=== PATIENT | female | born 1930 | race Caucasian/White ===

== ENCOUNTER 2016-12-30 21:48 | Inpatient (IN) | payer MEDICARE ==
[~2016-12-30] VITALS: Ht 162.6 cm; Wt 64.6 kg
--- NOTE | 2016-12-30 22:15 | EKG ---
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
[2016-12-30 22:26] LABS: BASO # 0.1 x10^3/uL (0.0-0.2); BASO % 1 % (0-3); EOS # 0.2 x10^3/uL (0.0-0.7); EOS % 3 % (0-3); HEMOGLOBIN 12.8 g/dL (12.0-15.5); LYMPH # 2.4 x10^3/uL (1.0-4.8); LYMPH % 40 % (24-48); MEAN CORPUSCULAR HEMOGLOBIN 28 pg (25-35); MEAN CORPUSCULAR HGB CONC 33 g/dL (31-37); MEAN CORPUSCULAR VOLUME 86 fL (79-100); MONO # 0.6 x10^3/uL (0.0-1.1); MONO % 9 % (0-9); NEUT # 2.9 x10^3uL (1.8-7.7); NEUT % 48 % (31-73); PLATELET COUNT 209 x10^3/uL (140-400); RED BLOOD COUNT 4.52 x10^6/uL (3.50-5.40); RED CELL DISTRIBUTION WIDTH 15.6 % (11.5-14.5); WHITE BLOOD COUNT 6.1 x10^3/uL (4.0-11.0)
[2016-12-30 22:31] LABS: HEMOGLOBIN ISTAT 13.3 gm/dL; POTASSIUM ISTAT 3.7 mmol/L (3.5-5.0)
--- NOTE | 2016-12-30 22:35 | ED.ADGEN ---
Adult General HPI HPI Patient is a 86-year-old female with a history of dementia brought to the emergency department for medical clearance prior to admission to the geriatric psychiatric unit. Patient herself denies any medical complaints. Per report she has had increased aggression at the shelter. Review of Systems Review of Systems Constitutional: Denies fever or chills [] Eyes: Denies change in visual acuity, redness, or eye pain [] HENT: Denies nasal congestion or sore throat [] Respiratory: Denies cough or shortness of breath [] Cardiovascular: No additional information not addressed in HPI [] GI: Denies abdominal pain, nausea, vomiting, bloody stools or diarrhea [] : Denies dysuria or hematuria [] Musculoskeletal: Denies back pain or joint pain [] Integument: Denies rash or skin lesions [] Neurologic: Denies headache, focal weakness or sensory changes [] Endocrine: Denies polyuria or polydipsia [] Allergies Allergies Allergies Coded Allergies Type Severity Reaction Last Updated Verified No Known Drug Allergies 12/30/16 No Physical Exam Physical Exam Constitutional: Well developed, well nourished, no acute distress, non-toxic appearance. [] HENT: Normocephalic, atraumatic, bilateral external ears normal, oropharynx moist, no oral exudates, nose normal. [] Eyes: PERRLA, EOMI, conjunctiva normal, no discharge. [] Neck: Normal range of motion, no tenderness, supple, no stridor. [] Cardiovascular:Heart rate regular rhythm, no murmur [] Lungs & Thorax: Bilateral breath sounds clear to auscultation [] Abdomen: Bowel sounds normal, soft, no tenderness, no masses, no pulsatile masses. [] Skin: Warm, dry, no erythema, no rash. [] Back: No tenderness, no CVA tenderness. [] Extremities: No tenderness, no cyanosis, no clubbing, ROM intact, no edema. [] Neurologic: Alert and oriented X 1, normal motor function, normal sensory function, no focal deficits noted. [] Psychologic: Affect normal, judgement normal, mood normal. [] Current Patient Data Vital Signs Vital Signs Date Time Temp Pulse Resp B/P Pulse Ox O2 Delivery O2 Flow Rate FiO2 12/30/16 21:48 97.2 74 20 93 Room Air Lab Results Laboratory Tests Test 12/30/16 22:05 12/30/16 22:10 12/30/16 22:15 12/30/16 22:18 White Blood Count 6.1x10^3/uL (4.0-11.0) Red Blood Count 4.52x10^6/uL (3.50-5.40) Hemoglobin 12.8g/dL (12.0-15.5) Hematocrit 39.0% (36.0-47.0) Mean Corpuscular Volume 86fL (79-100) Mean Corpuscular Hemoglobin 28pg (25-35) Mean Corpuscular Hemoglobin Concent 33g/dL (31-37) Red Cell Distribution Width 15.6% (11.5-14.5) H Platelet Count 209x10^3/uL (140-400) Neutrophils (%) (Auto) 48% (31-73) Lymphocytes (%) (Auto) 40% (24-48) Monocytes (%) (Auto) 9% (0-9) Eosinophils (%) (Auto) 3% (0-3) Basophils (%) (Auto) 1% (0-3) Neutrophils # (Auto) 2.9x10^3uL (1.8-7.7) Lymphocytes # (Auto) 2.4x10^3/uL (1.0-4.8) Monocytes # (Auto) 0.6x10^3/uL (0.0-1.1) Eosinophils # (Auto) 0.2x10^3/uL (0.0-0.7) Basophils # (Auto) 0.1x10^3/uL (0.0-0.2) Magnesium Level 1.9mg/dL (1.8-2.4) Valproic Acid Level 45mcg/mL (50-100) L Valproic Acid Last Dose Date Unknown Valproic Acid Last Dose Time Unknown Urine Collection Type Unknown Urine Color Yellow Urine Clarity Cloudy Urine pH 7.0 Urine Specific [place] 1.020 Urine Protein Neg (NEG-TRACE) Urine Glucose (UA) Negmg/dL (NEG) Urine Ketones (Stick) Negmg/dL (NEG) Urine Blood Small (NEG) Urine Nitrite Neg (NEG) Urine Bilirubin Neg (NEG) Urine Urobilinogen Dipstick 0.2mg/dL (0.2 mg/dL) Urine Leukocyte Esterase Large (NEG) Urine RBC Occ/HPF (0-2) Urine WBC 1-4/HPF (0-4) Urine Squamous Epithelial Cells Occ/LPF Urine Bacteria Few/HPF (0-FEW) POC Hemoglobin 13.3gm/dL POC Hematocrit 39% POC Sodium 140mmol/L (135-145) POC Potassium 3.7mmol/L (3.5-5.0) POC Chloride 100mmol/L (98-110) POC Total CO2 27mmol/L (23-32) Anion Gap 18mmol/L (6-14) H POC Blood Urea Nitrogen 11mg/dL (8-26) POC Creatinine 0.5mg/dL (0.5-1.4) Glucose Level 96mg/dL (60-99) POC Ionized Calcium (Sahil) 1.15mmol/L (1.13-1.32) POC Troponin I 0.00ng/ml (<0.08) EKG EKG EKG interpreted by me, normal sinus rhythm, 70 bpm, no ST segment elevation, leftward axis. [] Radiology/Procedures Radiology/Procedures [] Course & Med Decision Making Course & Med Decision Making Pertinent Labs and Imaging studies reviewed. (See chart for details) [] Final Impression Final Impression Dementia with behavioral disturbance [] Problems: Dragon Disclaimer Dragon Disclaimer This electronic medical record was generated, in whole or in part, using a voice recognition dictation system. CHANTAL BRAN MD Dec 30, 2016 22:34
[2016-12-30 22:42] LABS: VAL ACID 45 mcg/mL (50-100)
[2016-12-30 23:19] LABS: CLARITY,URINE CLOUDY
[2016-12-30 23:20] LABS: COLOR,URINE YELLOW
[2016-12-30 23:23] LABS: BILIRUBIN,URINE NEG (NEG); GLUCOSE,URINE NEG (NEG); NITRITE,URINE NEG (NEG); RBC,URINE OCC /HPF (0-2); UROBILINOGEN,URINE 0.2 mg/dL (0.2 mg/dL)
[2016-12-30 23:24] LABS: BACTERIA,URINE FEW /HPF (0-FEW); SQUAMOUS EPITHELIAL CELL,UR OCC /LPF
[2016-12-30] MEDS ORDERED: ALPR0.5T6 PO (23:48)
[2016-12-30] MEDS ORDERED: QUET25TA5 PO (23:48)
[2016-12-30] MEDS ORDERED: ACET325T9 PO (23:48)
[2016-12-30] MEDS ORDERED: PARO20TA3 PO (23:48)
[2016-12-30] MEDS ORDERED: TEMA15CA PO (23:48)
[2016-12-30] MEDS ORDERED: LORA0.5T PO (23:48)
[2016-12-30] MEDS ORDERED: BISA5TAB4 PO (23:48)
[2016-12-30] MEDS ORDERED: LISI40TA PO (23:48)
[2016-12-30] MEDS ORDERED: DIVA125C PO (23:48)
[2016-12-30] MEDS ORDERED: DONE10TA34 PO (23:48)
[2016-12-30] MEDS ORDERED: DIPH25CA58 PO (23:48)
[2016-12-30] MEDS ORDERED: DIPH25TA24 PO (23:48)
[2016-12-30] MEDS ORDERED: SENN-6 PO (23:50)
--- NOTE | 2016-12-30 23:51 | ACF ---
Admission Criteria Forms PSYCHIATRIC DISORDERS Clinical Indications for Inpatient Care (Place 'X' for any and all applicable criteria): Ongoing inpatient care may be needed for ANY ONE of the following(1)(2)(3)(4)(6) (7)(8): [X]I. Danger to self or others not manageable at lower level of care. [ ]II. Grave disability (eg, inability to perform self care necessary at lower level of care) [ ]III. Agitation or inappropriate behavior interfering with care for primary condition (eg, attempting to discontinue lines or drains prematurely, unable to cooperate with respiratory care) [ ]IV. Severe disability or disorder indicated by ALL of the following: [ ]a) Severe behavioral health disorder-related symptoms or condition indicated by ANY ONE of the following: [ ]i) Severe problem with cognition, memory, judgment, or impulse control [ ]ii) Severe clinical manifestations (eg, hallucinations, delusions, other acute psychotic symptoms, yola, extreme agitation or anxiety) [ ]b) Patient management at lower level of care is not feasible until acute intervention or modification is initiated. Extended stay beyond goal length of stay for the primary condition may be indicated when ANY ONE of the following is present: (1)(2)(3)(4): [ ]a) Patient is a danger to self or others and not manageable at lower level of care. [ ]b) Behavior crisis management, including physical or chemical restraints, is required and is not available at a lower level of care. [ ]c) Behavioral symptoms (e.g., agitation, somnolence, inappropriate behavior) are present, and are not manageable at a lower level of care. [ ]d) Patient cannot understand follow-up treatment and crisis plan. [ ]e) Provider and supports are not sufficiently available at lower level of care. [ ]f) Patient cannot participate (e.g., verify absence of plan for harm) and is in needed of monitoring. The original [facility] content created by [employer] has been revised. The portions of the content which have been revised are identified through the use of italic text or in bold, and [facility] has neither reviewed nor approved the modified material. All other unmodified content is copyright [facility]. Please see references footnoted in the original [facility] edition 2016 Admission Criteria Met?: Yes PIERRE GE Dec 30, 2016 23:51
[2016-12-30] MEDS ORDERED: SMZ/TMP 800/160MG TABLET. PO ONE (23:55)
[2016-12-31] MEDS ORDERED: LORAZEPAM 0.5 MG TABLET PO PRN
[2016-12-31] MEDS ORDERED: MAGNESIUM HYDROXIDE 2,400 MG/30 ML ORAL.SUSP. PO PRN
[2016-12-31] MEDS ORDERED: METHYL SALICYLATE/MENTHOL TOPICAL OINTMENT 29GM TUBE. TP PRN
[2016-12-31] MEDS ORDERED: MAG HYDROX/AL HYDROX/SIMETH 30 ML ORAL.SUSP PO PRN
[2016-12-31 01:19] VITALS: BP 150/74
[2016-12-31] MEDS: OLANZAPINE ZYDIS 5 MG TAB.RAPDIS PO PRN ×2 (06:26→07:28)
[2016-12-31 06:30] VITALS: BP 178/85
[2016-12-31] MEDS: HYDROXYZINE HCL 25 MG TABLET PO PRN (07:28)
[2016-12-31] MEDS: LORAZEPAM 2 MG/ML VIAL IM SCH ×2 (08:18→09:00)
[2016-12-31] MEDS: HALOPERIDOL LACT 5 MG/ML VIAL. IM SCH ×2 (08:18→09:00)
[2016-12-31] MEDS ORDERED: DIPHENHYDRAMINE HCL 25 MG CAPSULE PO PRN (09:15)
[2016-12-31] MEDS ORDERED: ACETAMINOPHEN 325 MG TABLET PO PRN (09:15)
[2016-12-31] MEDS ORDERED: BISACODYL TAB 5 MG TABLET.DR. PO PRN (09:15)
--- NOTE | 2016-12-31 11:23 | PDOC1 ---
History of Present Illness Reason for Visit: Combative History of Present Illness Pt sent to [facility] for eval in SB[facility] unit due to combative behavior at the [facility]. Pt has been exit-seeking, paranoid, threatening, striking staff. She is a very poor historian. She does c/o some occasional pain in the right low back area, but able to walk fine. Per nursing staff she has been spitting on them this morning. 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 Allergies: Coded Allergies: No Known Drug Allergies (Unverified , 12/30/16) Medications Current Medications Trimethoprim/ Sulfamethoxazole (Bactrim Ds) 1 tab 1X ONCE PO Last administered on 12/31/16 00:02; Start 12/30/16 at 23:55; Stop 12/30/16 at 23:56 ; Status DC Multi-Ingredient Ointment (Analgesic [place]) 1 jazlyn PRN QID PRN TP MUSCLE PAIN; Start 12/31/16 at 00:00 Al Hydroxide/Mg Hydroxide (Mylanta Plus Xs) 15 ml PRN AFTMEALHC PRN PO DYSPEPSIA; Start 12/31/16 at 00:00 Magnesium Hydroxide (Milk Of Magnesia) 2,400 mg PRN QHS PRN PO CONSTIPATION; Start 12/31/16 at 00:00 Alprazolam (Xanax) 0.5 mg TID PO ; Start 12/31/16 at 09:00 Divalproex Sodium (Depakote Sprinkles) 250 mg BID PO ; Start 12/31/16 at 09:00 Donepezil HCl (Aricept) 10 mg QHS PO ; Start 12/31/16 at 21:00 Lorazepam (Ativan) 0.5 mg PRN Q4HRS PRN PO ANXIETY / AGITATION Last administered on 12/31/16 05:50; Start 12/31/16 at 00:00; Stop 12/31/16 at 06:19 ; Status DC Paroxetine HCl (Paxil) 20 mg DAILY PO ; Start 12/31/16 at 09:00 Quetiapine Fumarate (SEROquel) 25 mg TID PO ; Start 12/31/16 at 09:00 Temazepam (Restoril) 15 mg PRN QHS PRN PO INSOMNIA; Start 12/31/16 at 00:00 Olanzapine (Zyprexa Zydis) 2.5 mg PRN Q2HR PRN PO PSYCHOSIS Last administered on 12/31/16 06:26; Start 12/31/16 at 06:30 Hydroxyzine HCl (Atarax) 50 mg PRN TID PRN PO ANXIETY; Start 12/31/16 at 07:30 Lorazepam (Ativan) 0.5 mg DAILY IM Last administered on 12/31/16 08:18; Start 12/31/16 at 08:30 Haloperidol Lactate (Haldol) 5 mg DAILY IM Last administered on 12/31/16 08:18 ; Start 12/31/16 at 08:30 Acetaminophen (Tylenol) 650 mg PRN Q4HRS PRN PO PAIN / TEMP; Start 12/31/16 at 09:15 Bisacodyl (Dulcolax Tab) 10 mg PRN QHS PRN PO CONSTIPATION; Start 12/31/16 at 09:15 Diphenhydramine HCl (Benadryl) 25 mg PRN Q8HRS PRN PO RASH; Start 12/31/16 at 09:15 Senna/Docusate Sodium (Senna Plus) 1 tab PRN QHS PRN PO CONSTIPATION; Start at 09:15 Lisinopril (Prinivil) 40 mg DAILY PO ; Start 12/31/16 at 09:30 Active Scripts Active Reported Senna S Tablet (Sennosides/Docusate Sodium) 1 Each Tablet 1 Tab PO PRN QHS PRN Tylenol (Acetaminophen) 325 Mg Tablet 650 Mg PO PRN Q4HRS PRN Lorazepam 0.5 Mg Tablet 0.5 Mg PO PRN Q4HRS PRN Bisacodyl 5 Mg Tablet.dr 10 Mg PO PRN QHS PRN Diphenhydramine Hcl 25 Mg Tablet 25 Mg PO PRN QHS PRN Temazepam 15 Mg Capsule 15 Mg PO PRN QHS PRN Depakote Sprinkle (Divalproex Sodium) 125 Mg Cap.sprink 250 Mg PO BID Benadryl (Diphenhydramine Hcl) 25 Mg Capsule 25 Mg PO PRN Q8HRS PRN Seroquel (Quetiapine Fumarate) 25 Mg Tablet 25 Mg PO TID Alprazolam 0.5 Mg Tablet 0.5 Mg PO TID Aricept (Donepezil Hcl) 10 Mg Tablet 10 Mg PO QHS Paroxetine Hcl 20 Mg Tablet 20 Mg PO DAILY Lisinopril 40 Mg Tablet 40 Mg PO DAILY Exam Vital Signs Vital Signs Date Time Temp Pulse Resp B/P Pulse Ox O2 Delivery O2 Flow Rate FiO2 12/31/16 06:30 97.5 67 18 178/85 94 12/31/16 01:19 Room Air General Appearance: Alert, Other (Agitated, pacing the [place], accuses nurse of "sabotaging me") HEENT: Atraumatic, PERRLA, EOMI, Mucous membr. moist/pink, Other (NecK with normal ROM, no JVD, no LAD) Respiratory: Clear to auscultation, Normal air movement Heart: Regular rate, Normal S1, Normal S2, No murmurs Abdominal: Soft, No tenderness, No hepatospenomegaly Extremities: No edema, Normal pulses, Other (Right hip is NTTP. Her gait is normal. There is some TTP in the right SI joint, though pt describes it as " not a problem") Skin: No rashes Neuro: Normal gait, Strength at 5/5 X4 ext, Normal tone, Cranial nerves 3-12 NL Psych/Mental Status: Other (Pt paranoid and quite agitated today ) Assessment/Plan Assessment/Plan 1. Dementia w/ BD: Per Dr. Westbrook. 2. Possible UTI: UA was unremarkable. No indication for treatment, pt had neg culture on 12/23 as well. 3. HTN: MOnitor and treat if necessary. Will be cautious given pt's age and comorbid conditions. 4. DVT proph: Pt is ambulating all the time, no indication for pharmacologic prophylaxis. 5. Right SI joint pain: Pt is not c/o at this time. If worsens or pt limping , consider xray and additional meds. COURSE Allergies Coded Allergies Type Severity Reaction Last Updated Verified No Known Drug Allergies 12/30/16 No Laboratory Tests Test 12/30/16 22:05 12/30/16 22:10 12/30/16 22:15 12/30/16 22:18 White Blood Count 6.1x10^3/uL (4.0-11.0) Red Blood Count 4.52x10^6/uL (3.50-5.40) Hemoglobin 12.8g/dL (12.0-15.5) Hematocrit 39.0% (36.0-47.0) Mean Corpuscular Volume 86fL (79-100) Mean Corpuscular Hemoglobin 28pg (25-35) Mean Corpuscular Hemoglobin Concent 33g/dL (31-37) Red Cell Distribution Width 15.6% (11.5-14.5) Platelet Count 209x10^3/uL (140-400) Neutrophils (%) (Auto) 48% (31-73) Lymphocytes (%) (Auto) 40% (24-48) Monocytes (%) (Auto) 9% (0-9) Eosinophils (%) (Auto) 3% (0-3) Basophils (%) (Auto) 1% (0-3) Neutrophils # (Auto) 2.9x10^3uL (1.8-7.7) Lymphocytes # (Auto) 2.4x10^3/uL (1.0-4.8) Monocytes # (Auto) 0.6x10^3/uL (0.0-1.1) Eosinophils # (Auto) 0.2x10^3/uL (0.0-0.7) Basophils # (Auto) 0.1x10^3/uL (0.0-0.2) Magnesium Level 1.9mg/dL (1.8-2.4) Valproic Acid (Depakene) Level 45mcg/mL (50-100) Valproic Acid Last Dose Date Unknown Valproic Acid Last Dose Time Unknown Urine Collection Type Unknown Urine Color Yellow Urine Clarity Cloudy Urine pH 7.0 Urine Specific [place] 1.020 Urine Protein Neg (NEG-TRACE) Urine Glucose (UA) Negmg/dL (NEG) Urine Ketones (Stick) Negmg/dL (NEG) Urine Blood Small (NEG) Urine Nitrite Neg (NEG) Urine Bilirubin Neg (NEG) Urine Urobilinogen Dipstick 0.2mg/dL (0.2 mg/dL) Urine Leukocyte Esterase Large (NEG) Urine RBC Occ/HPF (0-2) Urine WBC 1-4/HPF (0-4) Urine Squamous Epithelial Cells Occ/LPF Urine Bacteria Few/HPF (0-FEW) Bedside Hemoglobin 13.3gm/dL Bedside Hematocrit 39% Bedside Sodium 140mmol/L (135-145) Bedside Potassium 3.7mmol/L (3.5-5.0) Bedside Chloride 100mmol/L (98-110) Bedside Total CO2 27mmol/L (23-32) Anion Gap 18mmol/L (6-14) Bedside Blood Urea Nitrogen 11mg/dL (8-26) Bedside Creatinine 0.5mg/dL (0.5-1.4) Glucose Level 96mg/dL (60-99) Bedside Ionized Calcium (Sahil) 1.15mmol/L (1.13-1.32) Bedside Troponin I 0.00ng/ml (<0.08) Current Medications Medications (Trade) Dose Ordered Sig/Yunier Route PRN Reason Start Time Stop Time Status Last Admin Dose Admin Trimethoprim/ Sulfamethoxazole (Bactrim Ds) 1 tab 1X ONCE PO 12/30/16 23:55 12/30/16 23:56 DC 12/31/16 00:02 Multi-Ingredient Ointment (Analgesic [place]) 1 jazlyn PRN QID PRN TP MUSCLE PAIN 12/31/16 00:00 Al Hydroxide/Mg Hydroxide (Mylanta Plus Xs) 15 ml PRN AFTMEALHC PRN PO DYSPEPSIA 12/31/16 00:00 Magnesium Hydroxide (Milk Of Magnesia) 2,400 mg PRN QHS PRN PO CONSTIPATION 12/31/16 00:00 Alprazolam (Xanax) 0.5 mg TID PO 12/31/16 09:00 Divalproex Sodium (Depakote Sprinkles) 250 mg BID PO 12/31/16 09:00 Donepezil HCl (Aricept) 10 mg QHS PO 12/31/16 21:00 Lorazepam (Ativan) 0.5 mg PRN Q4HRS PRN PO ANXIETY / AGITATION 12/31/16 00:00 12/31/16 06:19 DC 12/31/16 05:50 Paroxetine HCl (Paxil) 20 mg DAILY PO 12/31/16 09:00 Quetiapine Fumarate (SEROquel) 25 mg TID PO 12/31/16 09:00 Temazepam (Restoril) 15 mg PRN QHS PRN PO INSOMNIA 12/31/16 00:00 Olanzapine (Zyprexa Zydis) 2.5 mg PRN Q2HR PRN PO PSYCHOSIS 12/31/16 06:30 12/31/16 06:26 Hydroxyzine HCl (Atarax) 50 mg PRN TID PRN PO ANXIETY 12/31/16 07:30 Lorazepam (Ativan) 0.5 mg DAILY IM 12/31/16 08:30 12/31/16 08:18 Haloperidol Lactate (Haldol) 5 mg DAILY IM 12/31/16 08:30 12/31/16 08:18 Acetaminophen (Tylenol) 650 mg PRN Q4HRS PRN PO PAIN / TEMP 12/31/16 09:15 Bisacodyl (Dulcolax Tab) 10 mg PRN QHS PRN PO CONSTIPATION 12/31/16 09:15 Diphenhydramine HCl (Benadryl) 25 mg PRN Q8HRS PRN PO RASH 12/31/16 09:15 Senna/Docusate Sodium (Senna Plus) 1 tab PRN QHS PRN PO CONSTIPATION 12/31/16 09:15 Lisinopril (Prinivil) 40 mg DAILY PO 12/31/16 09:30 Vital Signs Date Time Temp Pulse Resp B/P Pulse Ox O2 Delivery O2 Flow Rate FiO2 12/31/16 06:30 97.5 67 18 178/85 94 12/31/16 01:19 Room Air EKG: NSR, mildly prolonged [place] Labs from [facility] normal on 12/24 (Hgb 11.9) Urine culture from [facility] normal on 12/23 SEBASTIAN PAGE MD Dec 31, 2016 11:23
[2016-12-31] MEDS: DIVALPROEX 125 MG CAP.SPRINK PO SCH ×2 (11:44→19:55)
[2016-12-31] MEDS: ALPRAZOLAM 0.5 MG TABLET PO SCH ×4 (11:44→19:55)
[2016-12-31] MEDS: QUEtiapine 25 MG TABLET. PO SCH ×4 (11:45→19:55)
[2016-12-31] MEDS: LISINOPRIL 20 MG TABLET PO SCH (11:45)
[2016-12-31] MEDS: PAROXETINE 20 MG TABLET. PO SCH (11:45)
[2016-12-31 13:56] LABS: THYROID STIM HORMONE (TSH) 3.19 uIU/mL (0.358-3.740)
[2016-12-31 16:04] VITALS: BP 98/52
[2016-12-31 18:10] LABS: T3 TOTAL 99 ng/dL (71-180); THYROXINE 8.2 ug/dL (4.5-12.0)
[2016-12-31] MEDS: DONEPEZIL HCL 10 MG TABLET PO SCH (19:55)
--- NOTE | 2016-12-31 20:57 | PDOC ---
Exam Ab Demential Exam: Ab Note: Please also refer to the separate dictated note~for this date of service dictated separately.~Patient seen individually. Discussed the patient with Nursing staff reviewed the chart.~Reviewed interim history and current functioning. Reviewed vital signs,~Labs/ Radiology~and current medications noted below. Continue current treatment with the changes noted in the dictated addendum note Assessment: Vital Signs: Vital Signs Date Time Temp Pulse Resp B/P Pulse Ox O2 Delivery O2 Flow Rate FiO2 12/31/16 16:04 97.6 69 20 98/52 91 12/31/16 01:19 Room Air I&O Intake and Output 12/31/16 07:00 # Voids 2 # Bowel Movements 1 Labs: Laboratory Tests Test 12/30/16 22:05 12/30/16 22:10 12/30/16 22:15 12/30/16 22:18 White Blood Count 6.1x10^3/uL (4.0-11.0) Red Blood Count 4.52x10^6/uL (3.50-5.40) Hemoglobin 12.8g/dL (12.0-15.5) Hematocrit 39.0% (36.0-47.0) Mean Corpuscular Volume 86fL (79-100) Mean Corpuscular Hemoglobin 28pg (25-35) Mean Corpuscular Hemoglobin Concent 33g/dL (31-37) Red Cell Distribution Width 15.6% (11.5-14.5) H Platelet Count 209x10^3/uL (140-400) Neutrophils (%) (Auto) 48% (31-73) Lymphocytes (%) (Auto) 40% (24-48) Monocytes (%) (Auto) 9% (0-9) Eosinophils (%) (Auto) 3% (0-3) Basophils (%) (Auto) 1% (0-3) Neutrophils # (Auto) 2.9x10^3uL (1.8-7.7) Lymphocytes # (Auto) 2.4x10^3/uL (1.0-4.8) Monocytes # (Auto) 0.6x10^3/uL (0.0-1.1) Eosinophils # (Auto) 0.2x10^3/uL (0.0-0.7) Basophils # (Auto) 0.1x10^3/uL (0.0-0.2) Magnesium Level 1.9mg/dL (1.8-2.4) Iron Level 38ug/dL (50-170) L Total Iron Binding Capacity 329ug/dL (250-450) Iron Saturation 12% (15-34) L Triglycerides Level 130mg/dL (0-150) Cholesterol Level 245mg/dL (0-200) H LDL Cholesterol, Calculated 153mg/dL (0-100) H VLDL Cholesterol, Calculated 26mg/dL (0-40) HDL Cholesterol 66mg/dL (40-60) H Cholesterol/HDL Ratio 3.0 Vitamin B12 Level 413pg/mL (247-911) 25-Hydroxy Vitamin D Total Pending Thyroid Stimulating Hormone (TSH) 3.190uIU/mL (0.358-3.740) Thyroxine (T4) 8.2ug/dL (4.5-12.0) Total Triiodothyronine (TT3) 99ng/dL (71-180) Valproic Acid Level 45mcg/mL (50-100) L Valproic Acid Last Dose Date Unknown Valproic Acid Last Dose Time Unknown RPR Titer Additional Testing Pending Urine Collection Type Unknown Urine Color Yellow Urine Clarity Cloudy Urine pH 7.0 Urine Specific [place] 1.020 Urine Protein Neg (NEG-TRACE) Urine Glucose (UA) Negmg/dL (NEG) Urine Ketones (Stick) Negmg/dL (NEG) Urine Blood Small (NEG) Urine Nitrite Neg (NEG) Urine Bilirubin Neg (NEG) Urine Urobilinogen Dipstick 0.2mg/dL (0.2 mg/dL) Urine Leukocyte Esterase Large (NEG) Urine RBC Occ/HPF (0-2) Urine WBC 1-4/HPF (0-4) Urine Squamous Epithelial Cells Occ/LPF Urine Bacteria Few/HPF (0-FEW) POC Hemoglobin 13.3gm/dL POC Hematocrit 39% POC Sodium 140mmol/L (135-145) POC Potassium 3.7mmol/L (3.5-5.0) POC Chloride 100mmol/L (98-110) POC Total CO2 27mmol/L (23-32) Anion Gap 18mmol/L (6-14) H POC Blood Urea Nitrogen 11mg/dL (8-26) POC Creatinine 0.5mg/dL (0.5-1.4) Glucose Level 96mg/dL (60-99) POC Ionized Calcium (Sahil) 1.15mmol/L (1.13-1.32) POC Troponin I 0.00ng/ml (<0.08) Current Medications: Meds: Current Medications Trimethoprim/ Sulfamethoxazole (Bactrim Ds) 1 tab 1X ONCE PO Last administered on 12/31/16 00:02; Start 12/30/16 at 23:55; Stop 12/30/16 at 23:56 ; Status DC Multi-Ingredient Ointment (Analgesic [place]) 1 jazlyn PRN QID PRN TP MUSCLE PAIN; Start 12/31/16 at 00:00 Al Hydroxide/Mg Hydroxide (Mylanta Plus Xs) 15 ml PRN AFTMEALHC PRN PO DYSPEPSIA; Start 12/31/16 at 00:00 Magnesium Hydroxide (Milk Of Magnesia) 2,400 mg PRN QHS PRN PO CONSTIPATION; Start 12/31/16 at 00:00 Alprazolam (Xanax) 0.5 mg TID PO Last administered on 12/31/16 19:55; Start at 09:00 Divalproex Sodium (Depakote Sprinkles) 250 mg BID PO Last administered on 19:55; Start 12/31/16 at 09:00 Donepezil HCl (Aricept) 10 mg QHS PO Last administered on 12/31/16 19:55; Start 12/31/16 at 21:00 Lorazepam (Ativan) 0.5 mg PRN Q4HRS PRN PO ANXIETY / AGITATION Last administered on 12/31/16 05:50; Start 12/31/16 at 00:00; Stop 12/31/16 at 06:19 ; Status DC Paroxetine HCl (Paxil) 20 mg DAILY PO Last administered on 12/31/16 11:45; Start 12/31/16 at 09:00 Quetiapine Fumarate (SEROquel) 25 mg TID PO Last administered on 12/31/16 19: 55; Start 12/31/16 at 09:00 Temazepam (Restoril) 15 mg PRN QHS PRN PO INSOMNIA; Start 12/31/16 at 00:00 Olanzapine (Zyprexa Zydis) 2.5 mg PRN Q2HR PRN PO PSYCHOSIS Last administered on 12/31/16 06:26; Start 12/31/16 at 06:30 Hydroxyzine HCl (Atarax) 50 mg PRN TID PRN PO ANXIETY; Start 12/31/16 at 07:30 Lorazepam (Ativan) 0.5 mg DAILY IM Last administered on 12/31/16 09:00; Start 12/31/16 at 08:30 Haloperidol Lactate (Haldol) 5 mg DAILY IM Last administered on 12/31/16 09:00 ; Start 12/31/16 at 08:30 Acetaminophen (Tylenol) 650 mg PRN Q4HRS PRN PO PAIN / TEMP; Start 12/31/16 at 09:15 Bisacodyl (Dulcolax Tab) 10 mg PRN QHS PRN PO CONSTIPATION; Start 12/31/16 at 09:15 Diphenhydramine HCl (Benadryl) 25 mg PRN Q8HRS PRN PO RASH; Start 12/31/16 at 09:15 Senna/Docusate Sodium (Senna Plus) 1 tab PRN QHS PRN PO CONSTIPATION; Start at 09:15 Lisinopril (Prinivil) 40 mg DAILY PO Last administered on 12/31/16 11:45; Start 12/31/16 at 09:30 Active Scripts Active Reported Senna S Tablet (Sennosides/Docusate Sodium) 1 Each Tablet 1 Tab PO PRN QHS PRN Tylenol (Acetaminophen) 325 Mg Tablet 650 Mg PO PRN Q4HRS PRN Lorazepam 0.5 Mg Tablet 0.5 Mg PO PRN Q4HRS PRN Bisacodyl 5 Mg Tablet.dr 10 Mg PO PRN QHS PRN Diphenhydramine Hcl 25 Mg Tablet 25 Mg PO PRN QHS PRN Temazepam 15 Mg Capsule 15 Mg PO PRN QHS PRN Depakote Sprinkle (Divalproex Sodium) 125 Mg Cap.sprink 250 Mg PO BID Benadryl (Diphenhydramine Hcl) 25 Mg Capsule 25 Mg PO PRN Q8HRS PRN Seroquel (Quetiapine Fumarate) 25 Mg Tablet 25 Mg PO TID Alprazolam 0.5 Mg Tablet 0.5 Mg PO TID Aricept (Donepezil Hcl) 10 Mg Tablet 10 Mg PO QHS Paroxetine Hcl 20 Mg Tablet 20 Mg PO DAILY Lisinopril 40 Mg Tablet 40 Mg PO DAILY Diagnosis: Problems: (1) Dementia with behavioral disturbance TIFFANIE SCOTT MD Dec 31, 2016 20:57
[2016-12-31 22:07] LABS: HEMOGLOBIN A1C 5.4 % (4.8-5.6)
[2017-01-01 06:15] VITALS: BP 165/74
[2017-01-01] MEDS: LORAZEPAM 2 MG/ML VIAL IM SCH (09:00)
[2017-01-01] MEDS: HALOPERIDOL LACT 5 MG/ML VIAL. IM SCH (09:00)
[2017-01-01] MEDS: DIVALPROEX 125 MG CAP.SPRINK PO SCH ×2 (09:23→19:46)
[2017-01-01] MEDS: PAROXETINE 20 MG TABLET. PO SCH (09:24)
[2017-01-01] MEDS: QUEtiapine 25 MG TABLET. PO SCH ×3 (09:28→19:46)
[2017-01-01] MEDS: LISINOPRIL 20 MG TABLET PO SCH (09:28)
[2017-01-01] MEDS: ALPRAZOLAM 0.5 MG TABLET PO SCH ×3 (09:29→19:47)
[2017-01-01 16:04] VITALS: BP 110/71
[2017-01-01 17:22] LABS: BILIRUBIN,URINE NEG (NEG); CLARITY,URINE CLEAR; COLOR,URINE YELLOW; GLUCOSE,URINE NEG (NEG)
[2017-01-01 17:23] LABS: NITRITE,URINE NEG (NEG); UROBILINOGEN,URINE 0.2 mg/dL (0.2 mg/dL); WBC,URINE OCC /HPF (0-4)
[2017-01-01 17:24] LABS: BACTERIA,URINE 0 /HPF (0-FEW); SQUAMOUS EPITHELIAL CELL,UR OCC /LPF
[2017-01-01] MEDS: DONEPEZIL HCL 10 MG TABLET PO SCH (19:46)
--- NOTE | 2017-01-01 22:38 | PDOC ---
Exam Ab Demential Exam: Ab Note: Please also refer to the separate dictated note~for this date of service dictated separately.~Patient seen individually. Discussed the patient with Nursing staff reviewed the chart.~Reviewed interim history and current functioning. Reviewed vital signs,~Labs/ Radiology~and current medications noted below. Continue current treatment with the changes noted in the dictated addendum note Assessment: Vital Signs: Vital Signs Date Time Temp Pulse Resp B/P Pulse Ox O2 Delivery O2 Flow Rate FiO2 01/01/17 16:04 97.8 101 18 110/71 94 12/31/16 01:19 Room Air I&O Intake and Output 01/01/17 07:00 Intake Total 480 ml Balance 480 ml Intake Oral 480 ml Labs: Laboratory Tests Test 01/01/17 17:00 Urine Collection Type Void Urine Color Yellow Urine Clarity Clear Urine pH 5.5 Urine Specific [place] >=1.030 Urine Protein 30 mg/dl (NEG-TRACE) Urine Glucose (UA) Negmg/dL (NEG) Urine Ketones (Stick) 15mg/dL (NEG) Urine Blood Small (NEG) Urine Nitrite Neg (NEG) Urine Bilirubin Neg (NEG) Urine Urobilinogen Dipstick 0.2mg/dL (0.2 mg/dL) Urine Leukocyte Esterase Trace (NEG) Urine RBC 1-2/HPF (0-2) Urine WBC Occ/HPF (0-4) Urine Squamous Epithelial Cells Occ/LPF Urine Bacteria 0/HPF (0-FEW) Current Medications: Meds: Current Medications Trimethoprim/ Sulfamethoxazole (Bactrim Ds) 1 tab 1X ONCE PO Last administered on 12/31/16 00:02; Start 12/30/16 at 23:55; Stop 12/30/16 at 23:56 ; Status DC Multi-Ingredient Ointment (Analgesic [place]) 1 jazlyn PRN QID PRN TP MUSCLE PAIN; Start 12/31/16 at 00:00 Al Hydroxide/Mg Hydroxide (Mylanta Plus Xs) 15 ml PRN AFTMEALHC PRN PO DYSPEPSIA; Start 12/31/16 at 00:00 Magnesium Hydroxide (Milk Of Magnesia) 2,400 mg PRN QHS PRN PO CONSTIPATION; Start 12/31/16 at 00:00 Alprazolam (Xanax) 0.5 mg TID PO Last administered on 01/01/17 19:47; Start at 09:00 Divalproex Sodium (Depakote Sprinkles) 250 mg BID PO Last administered on 19:46; Start 12/31/16 at 09:00 Donepezil HCl (Aricept) 10 mg QHS PO Last administered on 01/01/17 19:46; Start 12/31/16 at 21:00 Lorazepam (Ativan) 0.5 mg PRN Q4HRS PRN PO ANXIETY / AGITATION Last administered on 12/31/16 05:50; Start 12/31/16 at 00:00; Stop 12/31/16 at 06:19 ; Status DC Paroxetine HCl (Paxil) 20 mg DAILY PO Last administered on 01/01/17 09:24; Start 12/31/16 at 09:00 Quetiapine Fumarate (SEROquel) 25 mg TID PO Last administered on 01/01/17 19: 46; Start 12/31/16 at 09:00 Temazepam (Restoril) 15 mg PRN QHS PRN PO INSOMNIA; Start 12/31/16 at 00:00 Olanzapine (Zyprexa Zydis) 2.5 mg PRN Q2HR PRN PO PSYCHOSIS Last administered on 12/31/16 06:26; Start 12/31/16 at 06:30 Hydroxyzine HCl (Atarax) 50 mg PRN TID PRN PO ANXIETY; Start 12/31/16 at 07:30 Lorazepam (Ativan) 0.5 mg DAILY IM Last administered on 12/31/16 09:00; Start 12/31/16 at 08:30 Haloperidol Lactate (Haldol) 5 mg DAILY IM Last administered on 12/31/16 09:00 ; Start 12/31/16 at 08:30 Acetaminophen (Tylenol) 650 mg PRN Q4HRS PRN PO PAIN / TEMP; Start 12/31/16 at 09:15 Bisacodyl (Dulcolax Tab) 10 mg PRN QHS PRN PO CONSTIPATION; Start 12/31/16 at 09:15 Diphenhydramine HCl (Benadryl) 25 mg PRN Q8HRS PRN PO RASH; Start 12/31/16 at 09:15 Senna/Docusate Sodium (Senna Plus) 1 tab PRN QHS PRN PO CONSTIPATION; Start at 09:15 Lisinopril (Prinivil) 40 mg DAILY PO Last administered on 01/01/17 09:28; Start 12/31/16 at 09:30 Vitamin D (Vitamin D3) 50,000 unit WEEKLY PO ; Start 01/08/17 at 09:00; Stop 03/10 at 08:59 Active Scripts Active Reported Senna S Tablet (Sennosides/Docusate Sodium) 1 Each Tablet 1 Tab PO PRN QHS PRN Tylenol (Acetaminophen) 325 Mg Tablet 650 Mg PO PRN Q4HRS PRN Lorazepam 0.5 Mg Tablet 0.5 Mg PO PRN Q4HRS PRN Bisacodyl 5 Mg Tablet.dr 10 Mg PO PRN QHS PRN Diphenhydramine Hcl 25 Mg Tablet 25 Mg PO PRN QHS PRN Temazepam 15 Mg Capsule 15 Mg PO PRN QHS PRN Depakote Sprinkle (Divalproex Sodium) 125 Mg Cap.sprink 250 Mg PO BID Benadryl (Diphenhydramine Hcl) 25 Mg Capsule 25 Mg PO PRN Q8HRS PRN Seroquel (Quetiapine Fumarate) 25 Mg Tablet 25 Mg PO TID Alprazolam 0.5 Mg Tablet 0.5 Mg PO TID Aricept (Donepezil Hcl) 10 Mg Tablet 10 Mg PO QHS Paroxetine Hcl 20 Mg Tablet 20 Mg PO DAILY Lisinopril 40 Mg Tablet 40 Mg PO DAILY Diagnosis: Problems: (1) Dementia with behavioral disturbance TIFFANIE SCOTT MD Jan 01, 2017 22:38
[2017-01-02 06:07] VITALS: BP 177/96
[2017-01-02] MEDS: DIVALPROEX 125 MG CAP.SPRINK PO SCH ×2 (08:23→19:38)
[2017-01-02] MEDS: QUEtiapine 25 MG TABLET. PO SCH ×3 (08:25→19:38)
[2017-01-02] MEDS: LISINOPRIL 20 MG TABLET PO SCH (08:25)
[2017-01-02] MEDS: HALOPERIDOL LACT 5 MG/ML VIAL. IM SCH (09:00)
[2017-01-02] MEDS: LORAZEPAM 2 MG/ML VIAL IM SCH (09:00)
[2017-01-02] MEDS: PAROXETINE 20 MG TABLET. PO SCH (10:16)
[2017-01-02] MEDS: ALPRAZOLAM 0.5 MG TABLET PO SCH ×3 (10:16→19:38)
[2017-01-02 10:17] VITALS: BP 170/86
--- NOTE | 2017-01-02 11:33 | HP ---
ADMIT DATE: 12/30/2016 PSYCHIATRIC ADMISSION HISTORY/EVALUATION for "Sh[facility]" IDENTIFYING DATA: The patient is an 86-year-old female, referred to us from [place], [place]; referred by Dr. Clay, her primary care physician on account of being combative with cares and with other residents. The patient is extremely confused, exit seeking, threatening her family, hearing voices, talking about her negatively. She believes she is being held against a will, confused, agitated, striking at residents and staff; symptoms worsening over the past 2 or 3 days, having failed outpatient psychiatric interventions she is referred for inpatient psychiatric stabilization. CHIEF COMPLAINT: "I'm okay." The president is President Cooper. The patient responded as above after I had introduce myself, met with her and then was asking her orientation question then asked her who the current president was. HISTORY OF PRESENT ILLNESS: The patient has a history of dementia, Alzheimer's vascular type. She has been residing at the above facility for sometime. Over the past few days, she has been getting increasingly agitated, combative. She has had sleep and appetite changes, appeared paranoid, delusional. No clear history of bipolar disorder, suicidal or homicidal ideation. PAST PSYCHIATRIC HISTORY: As above. PAST MEDICAL HISTORY: She is a full code. DRUG ALLERGIES: Negative. She was seen at the [facility] Emergency Room prior to coming on our unit, found to be medically stable to be on our unit. EKG normal sinus rhythm, mild prolongation of AL. UA was unremarkable, history of hypertension. The patient is on DVT prophylaxis, complains of right sacroiliac joint pain. OBJECTIVE: VITAL SIGNS: Temperature 97.5, pulse 67, and BP 178/85. CURRENT PSYCHOTROPICS: Paxil 20 mg a day, Aricept 10 mg a day, Xanax 0.5 mg t.i.d., Seroquel 25 mg t.i.d., Depakote Sprinkles 250 mg b.i.d., Restoril 15 mg at bedtime p.r.n., Ativan 0.5 mg q.4 hours p.r.n. anxiety. FAMILY HISTORY: Noncontributory. SOCIAL HISTORY: No history of alcohol, drug abuse, physical, sexual or elder abuse. She is not known to be a perpetrator. MENTAL STATUS EXAMINATION: The patient was seen individually, evening of 12/31/2016. The patient is oriented to herself and at times to situation, felt the year was 1992 and felt the president was president Cooper. She is a little irritable. Insight, judgment, recent and remote memory, attention, concentration, fund of knowledge poor, consistent with her diagnoses. REVIEW OF SYSTEMS: No eye, ENT, CV, , pulmonary system symptoms on review. Reliability poor. IMPRESSION: Major neurocognitive disorder, Alzheimer, vascular with depression, delusion, behavioral disturbance; anxiety disorder, unspecified; impulse control disorder, unspecified. Rest diagnoses as above. PLAN: Admit to the Geropsychiatry Unit at [facility]. I will see the patient daily individually from a psychiatric standpoint, medical followup at the request of Dr. Garnett/Dr. Kramer/Dr. Hammond. Of note, the patient's baseline check a valproic acid level and then adjust psychotropics as clinically indicated. MAN Matt SCOTT MD DR: ALE/amina JOB#: [id number] / [id number]
--- NOTE | 2017-01-02 12:10 | PN ---
DATE: 01/01/2017 SUBJECTIVE: This is a late entry 01/01/2017, covers elements not covered in my initial note. The patient was quite agitated the previous evening hitting, kicking staff, spitting at staff, extremely disruptive, and took her meds with Gatorade. Urine C&S was contaminated and is being repeated. REVIEW OF SYSTEMS: No CV, , pulmonary, eye, or ENT system symptoms on review. Reliability poor. MENTAL STATUS EXAM: Oriented to herself. Insight, judgment, recent and remote memory, attention, concentration, fund of knowledge poor, consistent with her diagnosis mentioned in my initial note. PLAN: Continue psychotropics mentioned in my initial note. We carefully reviewed the risk/benefit ratio of drug interactions. Adjust further as clinically indicated. Await repeat UA. MAN Matt SCOTT MD DR: ALE/amina JOB#: [id number] / [id number]
[2017-01-02 15:56] VITALS: BP 135/78
[2017-01-02] MEDS: DONEPEZIL HCL 10 MG TABLET PO SCH (19:39)
--- NOTE | 2017-01-02 21:02 | PDOC ---
Exam Ab Demential Exam: Ab Note: Please also refer to the separate dictated note~for this date of service dictated separately.~Patient seen individually. Discussed the patient with Nursing staff reviewed the chart.~Reviewed interim history and current functioning. Reviewed vital signs,~Labs/ Radiology~and current medications noted below. Continue current treatment with the changes noted in the dictated addendum note Assessment: Vital Signs: Vital Signs Date Time Temp Pulse Resp B/P Pulse Ox O2 Delivery O2 Flow Rate FiO2 01/02/17 15:56 98.1 75 20 135/78 94 12/31/16 01:19 Room Air I&O Intake and Output 01/02/17 07:00 Intake Total 720 ml Balance 720 ml Intake Oral 720 ml Current Medications: Meds: Current Medications Trimethoprim/ Sulfamethoxazole (Bactrim Ds) 1 tab 1X ONCE PO Last administered on 12/31/16 00:02; Start 12/30/16 at 23:55; Stop 12/30/16 at 23:56 ; Status DC Multi-Ingredient Ointment (Analgesic [place]) 1 jazlyn PRN QID PRN TP MUSCLE PAIN; Start 12/31/16 at 00:00 Al Hydroxide/Mg Hydroxide (Mylanta Plus Xs) 15 ml PRN AFTMEALHC PRN PO DYSPEPSIA; Start 12/31/16 at 00:00 Magnesium Hydroxide (Milk Of Magnesia) 2,400 mg PRN QHS PRN PO CONSTIPATION; Start 12/31/16 at 00:00 Alprazolam (Xanax) 0.5 mg TID PO Last administered on 01/02/17 19:38; Start at 09:00 Divalproex Sodium (Depakote Sprinkles) 250 mg BID PO Last administered on 19:38; Start 12/31/16 at 09:00 Donepezil HCl (Aricept) 10 mg QHS PO Last administered on 01/02/17 19:39; Start 12/31/16 at 21:00 Lorazepam (Ativan) 0.5 mg PRN Q4HRS PRN PO ANXIETY / AGITATION Last administered on 12/31/16 05:50; Start 12/31/16 at 00:00; Stop 12/31/16 at 06:19 ; Status DC Paroxetine HCl (Paxil) 20 mg DAILY PO Last administered on 01/02/17 10:16; Start 12/31/16 at 09:00 Quetiapine Fumarate (SEROquel) 25 mg TID PO Last administered on 01/02/17 19: 38; Start 12/31/16 at 09:00 Temazepam (Restoril) 15 mg PRN QHS PRN PO INSOMNIA; Start 12/31/16 at 00:00 Olanzapine (Zyprexa Zydis) 2.5 mg PRN Q2HR PRN PO PSYCHOSIS Last administered on 12/31/16 06:26; Start 12/31/16 at 06:30 Hydroxyzine HCl (Atarax) 50 mg PRN TID PRN PO ANXIETY; Start 12/31/16 at 07:30 Lorazepam (Ativan) 0.5 mg DAILY IM Last administered on 12/31/16 09:00; Start 12/31/16 at 08:30 Haloperidol Lactate (Haldol) 5 mg DAILY IM Last administered on 12/31/16 09:00 ; Start 12/31/16 at 08:30 Acetaminophen (Tylenol) 650 mg PRN Q4HRS PRN PO PAIN / TEMP; Start 12/31/16 at 09:15 Bisacodyl (Dulcolax Tab) 10 mg PRN QHS PRN PO CONSTIPATION; Start 12/31/16 at 09:15 Diphenhydramine HCl (Benadryl) 25 mg PRN Q8HRS PRN PO RASH; Start 12/31/16 at 09:15 Senna/Docusate Sodium (Senna Plus) 1 tab PRN QHS PRN PO CONSTIPATION; Start at 09:15 Lisinopril (Prinivil) 40 mg DAILY PO Last administered on 01/02/17 08:25; Start 12/31/16 at 09:30 Vitamin D (Vitamin D3) 50,000 unit WEEKLY PO ; Start 01/08/17 at 09:00; Stop 03/10 at 08:59 Active Scripts Active Reported Senna S Tablet (Sennosides/Docusate Sodium) 1 Each Tablet 1 Tab PO PRN QHS PRN Tylenol (Acetaminophen) 325 Mg Tablet 650 Mg PO PRN Q4HRS PRN Lorazepam 0.5 Mg Tablet 0.5 Mg PO PRN Q4HRS PRN Bisacodyl 5 Mg Tablet.dr 10 Mg PO PRN QHS PRN Diphenhydramine Hcl 25 Mg Tablet 25 Mg PO PRN QHS PRN Temazepam 15 Mg Capsule 15 Mg PO PRN QHS PRN Depakote Sprinkle (Divalproex Sodium) 125 Mg Cap.sprink 250 Mg PO BID Benadryl (Diphenhydramine Hcl) 25 Mg Capsule 25 Mg PO PRN Q8HRS PRN Seroquel (Quetiapine Fumarate) 25 Mg Tablet 25 Mg PO TID Alprazolam 0.5 Mg Tablet 0.5 Mg PO TID Aricept (Donepezil Hcl) 10 Mg Tablet 10 Mg PO QHS Paroxetine Hcl 20 Mg Tablet 20 Mg PO DAILY Lisinopril 40 Mg Tablet 40 Mg PO DAILY Diagnosis: Problems: (1) Dementia with behavioral disturbance TIFFANIE SCOTT MD Jan 02, 2017 21:02
[2017-01-03 06:21] VITALS: BP 106/65
[2017-01-03] MEDS: DIVALPROEX 125 MG CAP.SPRINK PO SCH ×2 (08:27→19:47)
[2017-01-03] MEDS: PAROXETINE 20 MG TABLET. PO SCH (08:27)
[2017-01-03] MEDS: QUEtiapine 25 MG TABLET. PO SCH ×3 (08:30→19:46)
[2017-01-03] MEDS: ALPRAZOLAM 0.5 MG TABLET PO SCH ×3 (08:30→19:46)
[2017-01-03] MEDS: HALOPERIDOL LACT 5 MG/ML VIAL. IM SCH (09:00)
[2017-01-03] MEDS: LISINOPRIL 20 MG TABLET PO SCH (09:00)
[2017-01-03] MEDS: LORAZEPAM 2 MG/ML VIAL IM SCH (09:00)
[2017-01-03 16:16] VITALS: BP 114/68
[2017-01-03] MEDS: DONEPEZIL HCL 10 MG TABLET PO SCH (19:46)
--- NOTE | 2017-01-03 20:58 | PDOC ---
Exam Ab Demential Exam: Ab Note: Please also refer to the separate dictated note~for this date of service dictated separately.~Patient seen individually. Discussed the patient with Nursing staff reviewed the chart.~Reviewed interim history and current functioning. Reviewed vital signs,~Labs/ Radiology~and current medications noted below. Continue current treatment with the changes noted in the dictated addendum note Assessment: Vital Signs: Vital Signs Date Time Temp Pulse Resp B/P Pulse Ox O2 Delivery O2 Flow Rate FiO2 01/03/17 16:16 98.0 74 18 114/68 94 12/31/16 01:19 Room Air I&O Intake and Output 01/03/17 07:00 Intake Total 820 ml Balance 820 ml Intake Oral 820 ml Current Medications: Meds: Current Medications Trimethoprim/ Sulfamethoxazole (Bactrim Ds) 1 tab 1X ONCE PO Last administered on 12/31/16 00:02; Start 12/30/16 at 23:55; Stop 12/30/16 at 23:56 ; Status DC Multi-Ingredient Ointment (Analgesic [place]) 1 jazlyn PRN QID PRN TP MUSCLE PAIN; Start 12/31/16 at 00:00 Al Hydroxide/Mg Hydroxide (Mylanta Plus Xs) 15 ml PRN AFTMEALHC PRN PO DYSPEPSIA; Start 12/31/16 at 00:00 Magnesium Hydroxide (Milk Of Magnesia) 2,400 mg PRN QHS PRN PO CONSTIPATION; Start 12/31/16 at 00:00 Alprazolam (Xanax) 0.5 mg TID PO Last administered on 01/03/17 19:46; Start at 09:00 Divalproex Sodium (Depakote Sprinkles) 250 mg BID PO Last administered on 19:47; Start 12/31/16 at 09:00 Donepezil HCl (Aricept) 10 mg QHS PO Last administered on 01/03/17 19:46; Start 12/31/16 at 21:00 Lorazepam (Ativan) 0.5 mg PRN Q4HRS PRN PO ANXIETY / AGITATION Last administered on 12/31/16 05:50; Start 12/31/16 at 00:00; Stop 12/31/16 at 06:19 ; Status DC Paroxetine HCl (Paxil) 20 mg DAILY PO Last administered on 01/03/17 08:27; Start 12/31/16 at 09:00; Stop 01/03/17 at 13:07; Status DC Quetiapine Fumarate (SEROquel) 25 mg TID PO Last administered on 01/03/17 19: 46; Start 12/31/16 at 09:00 Temazepam (Restoril) 15 mg PRN QHS PRN PO INSOMNIA; Start 12/31/16 at 00:00 Olanzapine (Zyprexa Zydis) 2.5 mg PRN Q2HR PRN PO PSYCHOSIS Last administered on 12/31/16 06:26; Start 12/31/16 at 06:30 Hydroxyzine HCl (Atarax) 50 mg PRN TID PRN PO ANXIETY; Start 12/31/16 at 07:30 Lorazepam (Ativan) 0.5 mg DAILY IM Last administered on 12/31/16 09:00; Start 12/31/16 at 08:30 Haloperidol Lactate (Haldol) 5 mg DAILY IM Last administered on 12/31/16 09:00 ; Start 12/31/16 at 08:30 Acetaminophen (Tylenol) 650 mg PRN Q4HRS PRN PO PAIN / TEMP; Start 12/31/16 at 09:15 Bisacodyl (Dulcolax Tab) 10 mg PRN QHS PRN PO CONSTIPATION; Start 12/31/16 at 09:15 Diphenhydramine HCl (Benadryl) 25 mg PRN Q8HRS PRN PO RASH; Start 12/31/16 at 09:15 Senna/Docusate Sodium (Senna Plus) 1 tab PRN QHS PRN PO CONSTIPATION; Start at 09:15 Lisinopril (Prinivil) 40 mg DAILY PO Last administered on 01/02/17 08:25; Start 12/31/16 at 09:30 Vitamin D (Vitamin D3) 50,000 unit WEEKLY PO ; Start 01/08/17 at 09:00; Stop 03/10 at 08:59 Escitalopram Oxalate (Lexapro) 10 mg DAILY PO ; Start 01/04/17 at 09:00 Active Scripts Active Reported Senna S Tablet (Sennosides/Docusate Sodium) 1 Each Tablet 1 Tab PO PRN QHS PRN Tylenol (Acetaminophen) 325 Mg Tablet 650 Mg PO PRN Q4HRS PRN Lorazepam 0.5 Mg Tablet 0.5 Mg PO PRN Q4HRS PRN Bisacodyl 5 Mg Tablet.dr 10 Mg PO PRN QHS PRN Diphenhydramine Hcl 25 Mg Tablet 25 Mg PO PRN QHS PRN Temazepam 15 Mg Capsule 15 Mg PO PRN QHS PRN Depakote Sprinkle (Divalproex Sodium) 125 Mg Cap.sprink 250 Mg PO BID Benadryl (Diphenhydramine Hcl) 25 Mg Capsule 25 Mg PO PRN Q8HRS PRN Seroquel (Quetiapine Fumarate) 25 Mg Tablet 25 Mg PO TID Alprazolam 0.5 Mg Tablet 0.5 Mg PO TID Aricept (Donepezil Hcl) 10 Mg Tablet 10 Mg PO QHS Paroxetine Hcl 20 Mg Tablet 20 Mg PO DAILY Lisinopril 40 Mg Tablet 40 Mg PO DAILY Diagnosis: Problems: (1) Dementia with behavioral disturbance TIFFANIE SCOTT MD Jan 03, 2017 20:57
--- NOTE | 2017-01-03 22:33 | PN ---
DATE: 01/02/2017 This late entry for 01/02/2017 covers elements not covered in my initial note. SUBJECTIVE: Overall, the patient remains confused, withdrawn, resistive to medications at times, takes them crushed in ice cream. REVIEW OF SYSTEMS: No CV, , pulmonary, eye, ENT system symptoms on review. Not very verbally interacting as I met with her in her room. MENTAL STATUS EXAM: Oriented to herself. Insight, judgment, recent and remote memory, attention, concentration, fund of knowledge poor, consistent with her diagnosis mentioned in my initial note. PLAN: Continue psychotropics mentioned in my initial note, may need to change Paxil to Lexapro and in fact, we will go ahead and do this to Lexapro 10 mg a day. Adjust further as clinically indicated. MAN Matt SCOTT MD DR: ALE/amina JOB#: [id number] / [id number]
[2017-01-04 06:30] VITALS: BP 136/80
[2017-01-04] MEDS: DIVALPROEX 125 MG CAP.SPRINK PO SCH ×2 (08:34→20:25)
[2017-01-04] MEDS: QUEtiapine 25 MG TABLET. PO SCH ×3 (08:34→20:25)
[2017-01-04] MEDS: LISINOPRIL 20 MG TABLET PO SCH (08:35)
[2017-01-04] MEDS: HALOPERIDOL LACT 5 MG/ML VIAL. IM SCH (08:40)
[2017-01-04] MEDS: LORAZEPAM 2 MG/ML VIAL IM SCH (08:41)
[2017-01-04] MEDS: ALPRAZOLAM 0.5 MG TABLET PO SCH ×3 (08:41→20:27)
[2017-01-04] MEDS: ESCITALOPRAM 10 MG TABLET. PO SCH (08:42)
[2017-01-04 15:58] VITALS: BP 146/89
[2017-01-04] MEDS: DONEPEZIL HCL 10 MG TABLET PO SCH (20:25)
--- NOTE | 2017-01-04 21:11 | PDOC ---
Exam Ab Demential Exam: Ab Note: Please also refer to the separate dictated note~for this date of service dictated separately.~Patient seen individually. Discussed the patient with Nursing staff reviewed the chart.~Reviewed interim history and current functioning. Reviewed vital signs,~Labs/ Radiology~and current medications noted below. Continue current treatment with the changes noted in the dictated addendum note Assessment: Vital Signs: Vital Signs Date Time Temp Pulse Resp B/P Pulse Ox O2 Delivery O2 Flow Rate FiO2 01/04/17 15:58 97.8 90 18 146/89 95 01/04/17 06:30 Room Air I&O Intake and Output 01/04/17 07:00 Intake Total 720 ml Balance 720 ml Intake Oral 720 ml Current Medications: Meds: Current Medications Trimethoprim/ Sulfamethoxazole (Bactrim Ds) 1 tab 1X ONCE PO Last administered on 12/31/16 00:02; Start 12/30/16 at 23:55; Stop 12/30/16 at 23:56 ; Status DC Multi-Ingredient Ointment (Analgesic [place]) 1 jazlyn PRN QID PRN TP MUSCLE PAIN; Start 12/31/16 at 00:00 Al Hydroxide/Mg Hydroxide (Mylanta Plus Xs) 15 ml PRN AFTMEALHC PRN PO DYSPEPSIA; Start 12/31/16 at 00:00 Magnesium Hydroxide (Milk Of Magnesia) 2,400 mg PRN QHS PRN PO CONSTIPATION; Start 12/31/16 at 00:00 Alprazolam (Xanax) 0.5 mg TID PO Last administered on 01/04/17 20:27; Start at 09:00 Divalproex Sodium (Depakote Sprinkles) 250 mg BID PO Last administered on 20:25; Start 12/31/16 at 09:00 Donepezil HCl (Aricept) 10 mg QHS PO Last administered on 01/04/17 20:25; Start 12/31/16 at 21:00 Lorazepam (Ativan) 0.5 mg PRN Q4HRS PRN PO ANXIETY / AGITATION Last administered on 12/31/16 05:50; Start 12/31/16 at 00:00; Stop 12/31/16 at 06:19 ; Status DC Paroxetine HCl (Paxil) 20 mg DAILY PO Last administered on 01/03/17 08:27; Start 12/31/16 at 09:00; Stop 01/03/17 at 13:07; Status DC Quetiapine Fumarate (SEROquel) 25 mg TID PO Last administered on 01/04/17 20: 25; Start 12/31/16 at 09:00 Temazepam (Restoril) 15 mg PRN QHS PRN PO INSOMNIA; Start 12/31/16 at 00:00 Olanzapine (Zyprexa Zydis) 2.5 mg PRN Q2HR PRN PO PSYCHOSIS Last administered on 12/31/16 06:26; Start 12/31/16 at 06:30 Hydroxyzine HCl (Atarax) 50 mg PRN TID PRN PO ANXIETY; Start 12/31/16 at 07:30 Lorazepam (Ativan) 0.5 mg DAILY IM Last administered on 01/04/17 08:41; Start 12/31/16 at 08:30; Stop 01/04/17 at 18:32; Status DC Haloperidol Lactate (Haldol) 5 mg DAILY IM Last administered on 01/04/17 08:40 ; Start 12/31/16 at 08:30; Stop 01/04/17 at 18:32; Status DC Acetaminophen (Tylenol) 650 mg PRN Q4HRS PRN PO PAIN / TEMP; Start 12/31/16 at 09:15 Bisacodyl (Dulcolax Tab) 10 mg PRN QHS PRN PO CONSTIPATION; Start 12/31/16 at 09:15 Diphenhydramine HCl (Benadryl) 25 mg PRN Q8HRS PRN PO RASH; Start 12/31/16 at 09:15 Senna/Docusate Sodium (Senna Plus) 1 tab PRN QHS PRN PO CONSTIPATION; Start at 09:15 Lisinopril (Prinivil) 40 mg DAILY PO Last administered on 01/04/17 08:35; Start 12/31/16 at 09:30 Vitamin D (Vitamin D3) 50,000 unit WEEKLY PO ; Start 01/08/17 at 09:00; Stop 03/10 at 08:59 Escitalopram Oxalate (Lexapro) 10 mg DAILY PO Last administered on 01/04/17 08 :42; Start 01/04/17 at 09:00 Active Scripts Active Reported Senna S Tablet (Sennosides/Docusate Sodium) 1 Each Tablet 1 Tab PO PRN QHS PRN Tylenol (Acetaminophen) 325 Mg Tablet 650 Mg PO PRN Q4HRS PRN Lorazepam 0.5 Mg Tablet 0.5 Mg PO PRN Q4HRS PRN Bisacodyl 5 Mg Tablet.dr 10 Mg PO PRN QHS PRN Diphenhydramine Hcl 25 Mg Tablet 25 Mg PO PRN QHS PRN Temazepam 15 Mg Capsule 15 Mg PO PRN QHS PRN Depakote Sprinkle (Divalproex Sodium) 125 Mg Cap.sprink 250 Mg PO BID Benadryl (Diphenhydramine Hcl) 25 Mg Capsule 25 Mg PO PRN Q8HRS PRN Seroquel (Quetiapine Fumarate) 25 Mg Tablet 25 Mg PO TID Alprazolam 0.5 Mg Tablet 0.5 Mg PO TID Aricept (Donepezil Hcl) 10 Mg Tablet 10 Mg PO QHS Paroxetine Hcl 20 Mg Tablet 20 Mg PO DAILY Lisinopril 40 Mg Tablet 40 Mg PO DAILY Diagnosis: Problems: (1) Dementia with behavioral disturbance TIFFANIE SCOTT MD Jan 04, 2017 21:11
--- NOTE | 2017-01-04 22:19 | PN ---
DATE: 01/03/2017 This late entry 01/03/2017 covers elements not covered in my initial note. SUBJECTIVE: The patient remains confused, agitated compliant, at other times resistive with medication. Refused Paxil. Has not had IM Haldol and Ativan for 3 days. REVIEW OF SYSTEMS: No CV, , eye, ENT, pulmonary system symptoms on review. Reliability poor. MENTAL STATUS EXAM: Oriented to herself. Insight, judgment, recent and remote memory, attention, concentration, fund of knowledge poor, consistent with her diagnosis. IMPRESSION: Major neurocognitive disorder, Alzheimer, vascular with depression, delusions. Major depressive disorder, anxiety disorder, unspecified. PLAN: Change Paxil to Lexapro 10 mg a day. Maintain the rest of her psychotropics. Stop the IM Haldol, Ativan. Adjust further as clinically indicated. MAN Matt SCOTT MD DR: ALE/amina JOB#: [id number] / [id number]
[2017-01-05 06:39] VITALS: BP 144/69
[2017-01-05] MEDS: ESCITALOPRAM 10 MG TABLET. PO SCH (08:11)
[2017-01-05] MEDS: DIVALPROEX 125 MG CAP.SPRINK PO SCH ×2 (08:11→19:12)
[2017-01-05] MEDS: LISINOPRIL 20 MG TABLET PO SCH (08:11)
[2017-01-05] MEDS: QUEtiapine 25 MG TABLET. PO SCH ×3 (08:12→19:12)
[2017-01-05] MEDS: ALPRAZOLAM 0.5 MG TABLET PO SCH ×3 (08:12→19:14)
[2017-01-05 16:17] VITALS: BP 151/82
[2017-01-05] MEDS: DONEPEZIL HCL 10 MG TABLET PO SCH (19:12)
--- NOTE | 2017-01-06 02:03 | PN ---
DATE: 01/04/2017 This late entry 01/04/2017 covers elements not covered in my initial note. SUBJECTIVE: The patient remains confused. Potassium is 4.9. We will stop the scheduled IM Haldol and Ativan since she is more compliant with her oral medications. REVIEW OF SYSTEMS: No CV, , eye, ENT or pulmonary system symptoms on review. Reliability poor. MENTAL STATUS EXAM: Oriented to herself. Insight, judgment, recent and remote memory, attention, concentration, fund of knowledge poor, consistent with her diagnosis mentioned in my initial note. PLAN: Continue current psychotropics, adjust further as clinically indicated. Paxil was changed to Lexapro and she is tolerating this better, gets a little paranoid at times. TIFFANIE SCOTT MD DR: ALE/amina JOB#: [id number] / [id number]
[2017-01-06 06:18] VITALS: BP 162/85
[2017-01-06] MEDS: ALPRAZOLAM 0.5 MG TABLET PO SCH ×3 (08:17→19:33)
[2017-01-06] MEDS: DIVALPROEX 125 MG CAP.SPRINK PO SCH ×2 (08:17→19:31)
[2017-01-06] MEDS: ESCITALOPRAM 10 MG TABLET. PO SCH (08:17)
[2017-01-06] MEDS: QUEtiapine 25 MG TABLET. PO SCH ×3 (08:17→19:32)
[2017-01-06] MEDS: LISINOPRIL 20 MG TABLET PO SCH (08:18)
[2017-01-06 16:24] VITALS: BP 158/94
[2017-01-06] MEDS: DONEPEZIL HCL 10 MG TABLET PO SCH (19:32)
[2017-01-07 05:51] VITALS: BP 123/67
[2017-01-07] MEDS: LISINOPRIL 20 MG TABLET PO SCH (08:44)
[2017-01-07] MEDS: DIVALPROEX 125 MG CAP.SPRINK PO SCH ×2 (08:44→19:31)
[2017-01-07] MEDS: ESCITALOPRAM 10 MG TABLET. PO SCH (08:45)
[2017-01-07] MEDS: ALPRAZOLAM 0.5 MG TABLET PO SCH ×3 (08:45→19:32)
[2017-01-07] MEDS: QUEtiapine 25 MG TABLET. PO SCH ×3 (08:45→19:31)
--- NOTE | 2017-01-07 09:20 | PDOC ---
Exam Ab Demential Exam: Ab Note: Please also refer to the separate dictated note~for this date of service dictated separately.~Patient seen individually. Discussed the patient with Nursing staff reviewed the chart.~Reviewed interim history and current functioning. Reviewed vital signs,~Labs/ Radiology~and current medications noted below. Continue current treatment with the changes noted in the dictated addendum note Assessment: Vital Signs: Vital Signs Date Time Temp Pulse Resp B/P Pulse Ox O2 Delivery O2 Flow Rate FiO2 01/07/17 08:44 75 123/67 01/07/17 05:51 97.6 18 93 01/05/17 16:17 Room Air I&O Intake and Output 01/07/17 07:00 Intake Total 960 ml Balance 960 ml Intake Oral 960 ml # Bowel Movements 1 Current Medications: Meds: Current Medications Trimethoprim/ Sulfamethoxazole (Bactrim Ds) 1 tab 1X ONCE PO Last administered on 12/31/16 00:02; Start 12/30/16 at 23:55; Stop 12/30/16 at 23:56 ; Status DC Multi-Ingredient Ointment (Analgesic [place]) 1 jazlyn PRN QID PRN TP MUSCLE PAIN; Start 12/31/16 at 00:00 Al Hydroxide/Mg Hydroxide (Mylanta Plus Xs) 15 ml PRN AFTMEALHC PRN PO DYSPEPSIA; Start 12/31/16 at 00:00 Magnesium Hydroxide (Milk Of Magnesia) 2,400 mg PRN QHS PRN PO CONSTIPATION; Start 12/31/16 at 00:00 Alprazolam (Xanax) 0.5 mg TID PO Last administered on 01/07/17 08:45; Start at 09:00 Divalproex Sodium (Depakote Sprinkles) 250 mg BID PO Last administered on 08:44; Start 12/31/16 at 09:00 Donepezil HCl (Aricept) 10 mg QHS PO Last administered on 01/06/17 19:32; Start 12/31/16 at 21:00 Lorazepam (Ativan) 0.5 mg PRN Q4HRS PRN PO ANXIETY / AGITATION Last administered on 12/31/16 05:50; Start 12/31/16 at 00:00; Stop 12/31/16 at 06:19 ; Status DC Paroxetine HCl (Paxil) 20 mg DAILY PO Last administered on 01/03/17 08:27; Start 12/31/16 at 09:00; Stop 01/03/17 at 13:07; Status DC Quetiapine Fumarate (SEROquel) 25 mg TID PO Last administered on 01/07/17 08: 45; Start 12/31/16 at 09:00 Temazepam (Restoril) 15 mg PRN QHS PRN PO INSOMNIA; Start 12/31/16 at 00:00 Olanzapine (Zyprexa Zydis) 2.5 mg PRN Q2HR PRN PO PSYCHOSIS Last administered on 12/31/16 06:26; Start 12/31/16 at 06:30 Hydroxyzine HCl (Atarax) 50 mg PRN TID PRN PO ANXIETY; Start 12/31/16 at 07:30 Lorazepam (Ativan) 0.5 mg DAILY IM Last administered on 01/04/17 08:41; Start 12/31/16 at 08:30; Stop 01/04/17 at 18:32; Status DC Haloperidol Lactate (Haldol) 5 mg DAILY IM Last administered on 01/04/17 08:40 ; Start 12/31/16 at 08:30; Stop 01/04/17 at 18:32; Status DC Acetaminophen (Tylenol) 650 mg PRN Q4HRS PRN PO PAIN / TEMP; Start 12/31/16 at 09:15 Bisacodyl (Dulcolax Tab) 10 mg PRN QHS PRN PO CONSTIPATION; Start 12/31/16 at 09:15 Diphenhydramine HCl (Benadryl) 25 mg PRN Q8HRS PRN PO RASH; Start 12/31/16 at 09:15 Senna/Docusate Sodium (Senna Plus) 1 tab PRN QHS PRN PO CONSTIPATION; Start at 09:15 Lisinopril (Prinivil) 40 mg DAILY PO Last administered on 01/07/17 08:44; Start 12/31/16 at 09:30 Vitamin D (Vitamin D3) 50,000 unit WEEKLY PO ; Start 01/08/17 at 09:00; Stop 03/10 at 08:59 Escitalopram Oxalate (Lexapro) 10 mg DAILY PO Last administered on 01/07/17t 08 :45; Start 01/04/17 at 09:00 Active Scripts Active Reported Senna S Tablet (Sennosides/Docusate Sodium) 1 Each Tablet 1 Tab PO PRN QHS PRN Tylenol (Acetaminophen) 325 Mg Tablet 650 Mg PO PRN Q4HRS PRN Lorazepam 0.5 Mg Tablet 0.5 Mg PO PRN Q4HRS PRN Bisacodyl 5 Mg Tablet.dr 10 Mg PO PRN QHS PRN Diphenhydramine Hcl 25 Mg Tablet 25 Mg PO PRN QHS PRN Temazepam 15 Mg Capsule 15 Mg PO PRN QHS PRN Depakote Sprinkle (Divalproex Sodium) 125 Mg Cap.sprink 250 Mg PO BID Benadryl (Diphenhydramine Hcl) 25 Mg Capsule 25 Mg PO PRN Q8HRS PRN Seroquel (Quetiapine Fumarate) 25 Mg Tablet 25 Mg PO TID Alprazolam 0.5 Mg Tablet 0.5 Mg PO TID Aricept (Donepezil Hcl) 10 Mg Tablet 10 Mg PO QHS Paroxetine Hcl 20 Mg Tablet 20 Mg PO DAILY Lisinopril 40 Mg Tablet 40 Mg PO DAILY Diagnosis: Problems: (1) Dementia with behavioral disturbance TIFFANIE SCOTT MD Jan 07, 2017 09:20
[2017-01-07 16:07] VITALS: BP 128/70
[2017-01-07] MEDS: DONEPEZIL HCL 10 MG TABLET PO SCH (19:31)
--- NOTE | 2017-01-08 02:21 | PN ---
DATE: 01/05/2017 PSYCHIATRIC PROGRESS NOTE This is a late entry for 01/05/2017, covers elements not covered in my initial note. SUBJECTIVE: The patient was seen individually and staffed at a treatment team meeting with the entire team with her family. Reviewed the patient's history, diagnosis, progress, discharge and aftercare plans. Overall, the patient is compliant with her medications, assessment, withdrawn, very paranoid. REVIEW OF SYSTEMS: No CV, , pulmonary, eye, ENT system symptoms on review. Reliability poor. MENTAL STATUS EXAM: Oriented to herself. Insight, judgment, recent and remote memory, attention, concentration, fund of knowledge poor, consistent with her diagnosis mentioned in my initial note. PLAN: Continue current psychotropics mentioned in my initial note. Adjust as clinically indicated. MAN Matt SCOTT MD DR: ALE/amina JOB#: [id number] / [id number]
--- NOTE | 2017-01-08 02:23 | PN ---
DATE: 01/06/2017 PSYCHIATRIC PROGRESS NOTE This is a late entry for 01/06/2017, covers elements not covered in my initial note. SUBJECTIVE: Temperature 97.2, BP 162/85, pulse 56, respirations 18. The patient has been irritable, at times sits quietly, less paranoid. REVIEW OF SYSTEMS: No CV, , eye, ENT or pulmonary system symptoms on review. Gait unsteady. MENTAL STATUS EXAM: Oriented to herself. Insight, judgment, recent and remote memory, attention, concentration, fund of knowledge poor, consistent with her diagnosis. LABORATORY DATA: Reviewed. IMPRESSION: Major neurocognitive disorder, Alzheimer, vascular with depression, history of delusions and behavioral disturbance. Rest unchanged. PLAN: Maintain Aricept, Depakote, Xanax, Restoril, Benadryl p.r.n., hydroxyzine p.r.n., Lexapro 10 mg a day. Adjust further as clinically indicated. TIFFANIE SCOTT MD DR: ALE/amina JOB#: [id number] / [id number]
[2017-01-08 06:05] VITALS: BP 152/73
[2017-01-08] MEDS: ESCITALOPRAM 10 MG TABLET. PO SCH (07:58)
[2017-01-08] MEDS: DIVALPROEX 125 MG CAP.SPRINK PO SCH ×2 (07:58→19:43)
[2017-01-08] MEDS: LISINOPRIL 20 MG TABLET PO SCH (07:59)
[2017-01-08] MEDS: QUEtiapine 25 MG TABLET. PO SCH ×3 (07:59→19:44)
[2017-01-08] MEDS: ALPRAZOLAM 0.5 MG TABLET PO SCH ×3 (08:00→19:46)
[2017-01-08] MEDS: CHOLECALCIFEROL (VITAMIN D3) 50,000 UNIT CAPSULE PO SCH (08:01)
[2017-01-08 08:04] LABS: BASO # 0.1 x10^3/uL (0.0-0.2); BASO % 1 % (0-3); EOS # 0.2 x10^3/uL (0.0-0.7); EOS % 2 % (0-3); HEMATOCRIT 40.1 % (36.0-47.0); HEMOGLOBIN 13.2 g/dL (12.0-15.5); LYMPH % 31 % (24-48); MEAN CORPUSCULAR HEMOGLOBIN 28 pg (25-35); MEAN CORPUSCULAR HGB CONC 33 g/dL (31-37); MEAN CORPUSCULAR VOLUME 86 fL (79-100); MONO # 0.6 x10^3/uL (0.0-1.1); MONO % 9 % (0-9); NEUT # 3.7 x10^3uL (1.8-7.7); NEUT % 57 % (31-73); PLATELET COUNT 209 x10^3/uL (140-400); RED BLOOD COUNT 4.64 x10^6/uL (3.50-5.40); RED CELL DISTRIBUTION WIDTH 15.1 % (11.5-14.5); WHITE BLOOD COUNT 6.5 x10^3/uL (4.0-11.0)
[2017-01-08 08:30] LABS: ALBUMIN 3.2 g/dL (3.4-5.0); ALBUMIN/GLOBULIN RATIO 0.8 (1.0-1.7); ALK PHOS 83 U/L (46-116); ALT (SGPT) 23 U/L (14-59); ANION GAP 9 (6-14); AST (SGOT) 20 U/L (15-37); BLOOD UREA NITROGEN 13 mg/dL (7-20); BUN/CREATININE RATIO 22 (6-20); CALCIUM 8.7 mg/dL (8.5-10.1); CARBON DIOXIDE 29 mmol/L (21-32); CHLORIDE 105 mmol/L (98-107); CREATININE 0.6 mg/dL (0.6-1.0); GLUCOSE 90 mg/dL (70-99); POTASSIUM 3.7 mmol/L (3.5-5.1); SODIUM 143 mmol/L (136-145); TOTAL BILIRUBIN 0.3 mg/dL (0.2-1.0)
[2017-01-08 08:31] LABS: VAL ACID 53 mcg/mL (50-100)
[2017-01-08 16:14] VITALS: BP 156/80
[2017-01-08] MEDS: DONEPEZIL HCL 10 MG TABLET PO SCH (19:42)
--- NOTE | 2017-01-08 22:02 | PDOC ---
Exam Ab Demential Exam: Ab Note: Please also refer to the separate dictated note~for this date of service dictated separately.~Patient seen individually. Discussed the patient with Nursing staff reviewed the chart.~Reviewed interim history and current functioning. Reviewed vital signs,~Labs/ Radiology~and current medications noted below. Continue current treatment with the changes noted in the dictated addendum note Assessment: Vital Signs: Vital Signs Date Time Temp Pulse Resp B/P Pulse Ox O2 Delivery O2 Flow Rate FiO2 01/08/17 16:14 97.0 76 20 156/80 94 01/08/17 06:05 Room Air I&O Intake and Output 01/08/17 07:00 Intake Total 720 ml Balance 720 ml Intake Oral 720 ml Labs: Laboratory Tests Test 01/08/17 07:52 White Blood Count 6.5x10^3/uL (4.0-11.0) Red Blood Count 4.64x10^6/uL (3.50-5.40) Hemoglobin 13.2g/dL (12.0-15.5) Hematocrit 40.1% (36.0-47.0) Mean Corpuscular Volume 86fL (79-100) Mean Corpuscular Hemoglobin 28pg (25-35) Mean Corpuscular Hemoglobin Concent 33g/dL (31-37) Red Cell Distribution Width 15.1% (11.5-14.5) H Platelet Count 209x10^3/uL (140-400) Neutrophils (%) (Auto) 57% (31-73) Lymphocytes (%) (Auto) 31% (24-48) Monocytes (%) (Auto) 9% (0-9) Eosinophils (%) (Auto) 2% (0-3) Basophils (%) (Auto) 1% (0-3) Neutrophils # (Auto) 3.7x10^3uL (1.8-7.7) Lymphocytes # (Auto) 2.0x10^3/uL (1.0-4.8) Monocytes # (Auto) 0.6x10^3/uL (0.0-1.1) Eosinophils # (Auto) 0.2x10^3/uL (0.0-0.7) Basophils # (Auto) 0.1x10^3/uL (0.0-0.2) Sodium Level 143mmol/L (136-145) Potassium Level 3.7mmol/L (3.5-5.1) Chloride Level 105mmol/L (98-107) Carbon Dioxide Level 29mmol/L (21-32) Anion Gap 9 (6-14) Blood Urea Nitrogen 13mg/dL (7-20) Creatinine 0.6mg/dL (0.6-1.0) Estimated GFR (Cockcroft-Gault) 95.0 BUN/Creatinine Ratio 22 (6-20) H Glucose Level 90mg/dL (70-99) Calcium Level 8.7mg/dL (8.5-10.1) Magnesium Level 2.0mg/dL (1.8-2.4) Total Bilirubin 0.3mg/dL (0.2-1.0) Aspartate Amino Transferase (AST) 20U/L (15-37) Alanine Aminotransferase (ALT) 23U/L (14-59) Alkaline Phosphatase 83U/L (46-116) Total Protein 7.0g/dL (6.4-8.2) Albumin 3.2g/dL (3.4-5.0) L Albumin/Globulin Ratio 0.8 (1.0-1.7) L Valproic Acid Level 53mcg/mL (50-100) Valproic Acid Last Dose Date 01/07/2017 Valproic Acid Last Dose Time 2100 Current Medications: Meds: Current Medications Trimethoprim/ Sulfamethoxazole (Bactrim Ds) 1 tab 1X ONCE PO Last administered on 12/31/16 00:02; Start 12/30/16 at 23:55; Stop 12/30/16 at 23:56 ; Status DC Multi-Ingredient Ointment (Analgesic [place]) 1 jazlyn PRN QID PRN TP MUSCLE PAIN; Start 12/31/16 at 00:00 Al Hydroxide/Mg Hydroxide (Mylanta Plus Xs) 15 ml PRN AFTMEALHC PRN PO DYSPEPSIA; Start 12/31/16 at 00:00 Magnesium Hydroxide (Milk Of Magnesia) 2,400 mg PRN QHS PRN PO CONSTIPATION; Start 12/31/16 at 00:00 Alprazolam (Xanax) 0.5 mg TID PO Last administered on 01/08/17 19:46; Start at 09:00 Divalproex Sodium (Depakote Sprinkles) 250 mg BID PO Last administered on 19:43; Start 12/31/16 at 09:00 Donepezil HCl (Aricept) 10 mg QHS PO Last administered on 01/08/17 19:42; Start 12/31/16 at 21:00 Lorazepam (Ativan) 0.5 mg PRN Q4HRS PRN PO ANXIETY / AGITATION Last administered on 12/31/16 05:50; Start 12/31/16 at 00:00; Stop 12/31/16 at 06:19 ; Status DC Paroxetine HCl (Paxil) 20 mg DAILY PO Last administered on 01/03/17 08:27; Start 12/31/16 at 09:00; Stop 01/03/17 at 13:07; Status DC Quetiapine Fumarate (SEROquel) 25 mg TID PO Last administered on 01/08/17 19:44 ; Start 12/31/16 at 09:00 Temazepam (Restoril) 15 mg PRN QHS PRN PO INSOMNIA; Start 12/31/16 at 00:00 Olanzapine (Zyprexa Zydis) 2.5 mg PRN Q2HR PRN PO PSYCHOSIS Last administered on 12/31/16 06:26; Start 12/31/16 at 06:30 Hydroxyzine HCl (Atarax) 50 mg PRN TID PRN PO ANXIETY; Start 12/31/16 at 07:30 Lorazepam (Ativan) 0.5 mg DAILY IM Last administered on 01/04/17 08:41; Start 12/31/16 at 08:30; Stop 01/04/17 at 18:32; Status DC Haloperidol Lactate (Haldol) 5 mg DAILY IM Last administered on 01/04/17 08:40 ; Start 12/31/16 at 08:30; Stop 01/04/17 at 18:32; Status DC Acetaminophen (Tylenol) 650 mg PRN Q4HRS PRN PO PAIN / TEMP; Start 12/31/16 at 09:15 Bisacodyl (Dulcolax Tab) 10 mg PRN QHS PRN PO CONSTIPATION; Start 12/31/16 at 09:15 Diphenhydramine HCl (Benadryl) 25 mg PRN Q8HRS PRN PO RASH; Start 12/31/16 at 09:15 Senna/Docusate Sodium (Senna Plus) 1 tab PRN QHS PRN PO CONSTIPATION; Start at 09:15 Lisinopril (Prinivil) 40 mg DAILY PO Last administered on 01/08/17 07:59; Start 12/31/16 at 09:30 Vitamin D (Vitamin D3) 50,000 unit WEEKLY PO Last administered on 01/08/17 08: 01; Start 01/08/17 at 09:00; Stop 03/10/17 at 08:59 Escitalopram Oxalate (Lexapro) 10 mg DAILY PO Last administered on 01/08/17 07: 58; Start 01/04/17 at 09:00 Active Scripts Active Reported Senna S Tablet (Sennosides/Docusate Sodium) 1 Each Tablet 1 Tab PO PRN QHS PRN Tylenol (Acetaminophen) 325 Mg Tablet 650 Mg PO PRN Q4HRS PRN Lorazepam 0.5 Mg Tablet 0.5 Mg PO PRN Q4HRS PRN Bisacodyl 5 Mg Tablet.dr 10 Mg PO PRN QHS PRN Diphenhydramine Hcl 25 Mg Tablet 25 Mg PO PRN QHS PRN Temazepam 15 Mg Capsule 15 Mg PO PRN QHS PRN Depakote Sprinkle (Divalproex Sodium) 125 Mg Cap.sprink 250 Mg PO BID Benadryl (Diphenhydramine Hcl) 25 Mg Capsule 25 Mg PO PRN Q8HRS PRN Seroquel (Quetiapine Fumarate) 25 Mg Tablet 25 Mg PO TID Alprazolam 0.5 Mg Tablet 0.5 Mg PO TID Aricept (Donepezil Hcl) 10 Mg Tablet 10 Mg PO QHS Paroxetine Hcl 20 Mg Tablet 20 Mg PO DAILY Lisinopril 40 Mg Tablet 40 Mg PO DAILY Diagnosis: Problems: (1) Dementia with behavioral disturbance TIFFANIE SCOTT MD Jan 08, 2017 22:02
[2017-01-09 06:18] VITALS: BP 153/75
[2017-01-09] MEDS: ESCITALOPRAM 10 MG TABLET. PO SCH (08:51)
[2017-01-09] MEDS: DIVALPROEX 125 MG CAP.SPRINK PO SCH ×2 (08:51→19:33)
[2017-01-09] MEDS: ALPRAZOLAM 0.5 MG TABLET PO SCH ×3 (08:52→19:33)
[2017-01-09] MEDS: LISINOPRIL 20 MG TABLET PO SCH (08:52)
[2017-01-09] MEDS: QUEtiapine 25 MG TABLET. PO SCH ×3 (08:52→19:33)
[2017-01-09 15:47] VITALS: BP 124/64
[2017-01-09] MEDS: DONEPEZIL HCL 10 MG TABLET PO SCH (19:32)
[2017-01-09] MEDS: busPIRone 5 MG TABLET. PO SCH (19:34)
--- NOTE | 2017-01-09 20:07 | PN ---
DATE: 01/07/2017 PSYCHIATRIC PROGRESS NOTE This is a late entry for 01/07/2017 covers elements not covered in my initial note. SUBJECTIVE: Per nursing report, the patient has been irritable, confused, restless, believes the president is [place] paranoid that family does not know where she is. She has no money to pay for her room and I reassured her trying to reenter where she was. ____ daughter met the previous night. Labs due in the morning. REVIEW OF SYSTEMS: No CV, , pulmonary, eye, ENT system symptoms on review. Ambulation impaired. Reliability poor. MENTAL STATUS EXAM: Oriented to herself. Insight, judgment, recent and remote memory, attention, concentration, fund of knowledge poor, consistent with her diagnosis mentioned in my initial note. PLAN: Continue psychotropics mentioned in my initial note. Adjust as indicated. MAN Matt SCOTT MD DR: ALE/amina JOB#: [id number] / [id number]
--- NOTE | 2017-01-09 20:10 | PN ---
DATE: 01/08/2017 PSYCHIATRIC PROGRESS NOTE This is a late entry for 01/08/2017 covers elements not covered in my initial note. The patient has been resistive to taking her medication, refused labs earlier then had it done later. REVIEW OF SYSTEMS: No CV, , pulmonary, eye, ENT system symptoms on review. Irritable without her afternoon pills confused, wandering and exit seeking. MENTAL STATUS EXAM: Oriented to herself. Insight, judgment, recent and remote memory, attention, concentration, fund of knowledge poor, consistent with her diagnosis mentioned in my initial note. PLAN: Continue psychotropics mentioned in my initial note. Add BuSpar 5 mg twice a day. Adjust further as clinically indicated. MAN Matt SCOTT MD DR: ALE/amina JOB#: [id number] / [id number]
--- NOTE | 2017-01-09 20:41 | PDOC ---
Exam Ab Demential Exam: Ab Note: Please also refer to the separate dictated note~for this date of service dictated separately.~Patient seen individually. Discussed the patient with Nursing staff reviewed the chart.~Reviewed interim history and current functioning. Reviewed vital signs,~Labs/ Radiology~and current medications noted below. Continue current treatment with the changes noted in the dictated addendum note Assessment: Vital Signs: Vital Signs Date Time Temp Pulse Resp B/P Pulse Ox O2 Delivery O2 Flow Rate FiO2 01/09/17 15:47 97.5 71 17 124/64 95 01/08/17 06:05 Room Air I&O Intake and Output 01/09/17 07:00 Intake Total 720 ml Balance 720 ml Intake Oral 720 ml # Bowel Movements 1 Current Medications: Meds: Current Medications Trimethoprim/ Sulfamethoxazole (Bactrim Ds) 1 tab 1X ONCE PO Last administered on 12/31/16 00:02; Start 12/30/16 at 23:55; Stop 12/30/16 at 23:56 ; Status DC Multi-Ingredient Ointment (Analgesic [place]) 1 jazlyn PRN QID PRN TP MUSCLE PAIN; Start 12/31/16 at 00:00 Al Hydroxide/Mg Hydroxide (Mylanta Plus Xs) 15 ml PRN AFTMEALHC PRN PO DYSPEPSIA; Start 12/31/16 at 00:00 Magnesium Hydroxide (Milk Of Magnesia) 2,400 mg PRN QHS PRN PO CONSTIPATION; Start 12/31/16 at 00:00 Alprazolam (Xanax) 0.5 mg TID PO Last administered on 01/09/17 19:33; Start at 09:00 Divalproex Sodium (Depakote Sprinkles) 250 mg BID PO Last administered on 19:33; Start 12/31/16 at 09:00 Donepezil HCl (Aricept) 10 mg QHS PO Last administered on 01/09/17 19:32; Start 12/31/16 at 21:00 Lorazepam (Ativan) 0.5 mg PRN Q4HRS PRN PO ANXIETY / AGITATION Last administered on 12/31/16 05:50; Start 12/31/16 at 00:00; Stop 12/31/16 at 06:19 ; Status DC Paroxetine HCl (Paxil) 20 mg DAILY PO Last administered on 01/03/17 08:27; Start 12/31/16 at 09:00; Stop 01/03/17 at 13:07; Status DC Quetiapine Fumarate (SEROquel) 25 mg TID PO Last administered on 01/09/17 19:33 ; Start 12/31/16 at 09:00 Temazepam (Restoril) 15 mg PRN QHS PRN PO INSOMNIA; Start 12/31/16 at 00:00 Olanzapine (Zyprexa Zydis) 2.5 mg PRN Q2HR PRN PO PSYCHOSIS Last administered on 12/31/16 06:26; Start 12/31/16 at 06:30 Hydroxyzine HCl (Atarax) 50 mg PRN TID PRN PO ANXIETY; Start 12/31/16 at 07:30 Lorazepam (Ativan) 0.5 mg DAILY IM Last administered on 01/04/17 08:41; Start 12/31/16 at 08:30; Stop 01/04/17 at 18:32; Status DC Haloperidol Lactate (Haldol) 5 mg DAILY IM Last administered on 01/04/17 08:40 ; Start 12/31/16 at 08:30; Stop 01/04/17 at 18:32; Status DC Acetaminophen (Tylenol) 650 mg PRN Q4HRS PRN PO PAIN / TEMP; Start 12/31/16 at 09:15 Bisacodyl (Dulcolax Tab) 10 mg PRN QHS PRN PO CONSTIPATION; Start 12/31/16 at 09:15 Diphenhydramine HCl (Benadryl) 25 mg PRN Q8HRS PRN PO RASH; Start 12/31/16 at 09:15 Senna/Docusate Sodium (Senna Plus) 1 tab PRN QHS PRN PO CONSTIPATION; Start at 09:15 Lisinopril (Prinivil) 40 mg DAILY PO Last administered on 01/09/17 08:52; Start 12/31/16 at 09:30 Vitamin D (Vitamin D3) 50,000 unit WEEKLY PO Last administered on 01/08/17 08: 01; Start 01/08/17 at 09:00; Stop 03/10/17 at 08:59 Escitalopram Oxalate (Lexapro) 10 mg DAILY PO Last administered on 01/09/17 08: 51; Start 01/04/17 at 09:00 Buspirone HCl (Buspar) 5 mg BID PO Last administered on 01/09/17 19:34; Start 01/09/17 at 21:00 Active Scripts Active Reported Senna S Tablet (Sennosides/Docusate Sodium) 1 Each Tablet 1 Tab PO PRN QHS PRN Tylenol (Acetaminophen) 325 Mg Tablet 650 Mg PO PRN Q4HRS PRN Lorazepam 0.5 Mg Tablet 0.5 Mg PO PRN Q4HRS PRN Bisacodyl 5 Mg Tablet.dr 10 Mg PO PRN QHS PRN Diphenhydramine Hcl 25 Mg Tablet 25 Mg PO PRN QHS PRN Temazepam 15 Mg Capsule 15 Mg PO PRN QHS PRN Depakote Sprinkle (Divalproex Sodium) 125 Mg Cap.sprink 250 Mg PO BID Benadryl (Diphenhydramine Hcl) 25 Mg Capsule 25 Mg PO PRN Q8HRS PRN Seroquel (Quetiapine Fumarate) 25 Mg Tablet 25 Mg PO TID Alprazolam 0.5 Mg Tablet 0.5 Mg PO TID Aricept (Donepezil Hcl) 10 Mg Tablet 10 Mg PO QHS Paroxetine Hcl 20 Mg Tablet 20 Mg PO DAILY Lisinopril 40 Mg Tablet 40 Mg PO DAILY Diagnosis: Problems: (1) Dementia with behavioral disturbance TIFFANIE SCOTT MD Jan 09, 2017 20:41
[2017-01-10 06:39] VITALS: BP 183/79
[2017-01-10] MEDS: ESCITALOPRAM 10 MG TABLET. PO SCH ×2 (09:00→09:28)
[2017-01-10] MEDS: QUEtiapine 25 MG TABLET. PO SCH ×4 (09:00→19:33)
[2017-01-10] MEDS: LISINOPRIL 20 MG TABLET PO SCH ×2 (09:00→09:26)
[2017-01-10] MEDS: DIVALPROEX 125 MG CAP.SPRINK PO SCH ×3 (09:00→19:33)
[2017-01-10] MEDS: ALPRAZOLAM 0.5 MG TABLET PO SCH ×4 (09:26→19:34)
[2017-01-10] MEDS: busPIRone 5 MG TABLET. PO SCH (09:28)
[2017-01-10 16:41] VITALS: BP 166/82
[2017-01-10] MEDS: DONEPEZIL HCL 10 MG TABLET PO SCH (19:34)
[2017-01-10] MEDS: busPIRone 10 MG TABLET. PO SCH (19:36)
--- NOTE | 2017-01-10 21:08 | PDOC ---
Exam Ab Demential Exam: Ba Note: Please also refer to the separate dictated note~for this date of service dictated separately.~Patient seen individually. Discussed the patient with Nursing staff reviewed the chart.~Reviewed interim history and current functioning. Reviewed vital signs,~Labs/ Radiology~and current medications noted below. Continue current treatment with the changes noted in the dictated addendum note Assessment: Vital Signs: Vital Signs Date Time Temp Pulse Resp B/P Pulse Ox O2 Delivery O2 Flow Rate FiO2 01/10/17 16:41 98.0 80 20 166/82 96 01/08/17 06:05 Room Air I&O Intake and Output 01/10/17 07:00 Intake Total 1140 ml Balance 1140 ml Intake Oral 1140 ml # Voids 1 # Bowel Movements 2 Current Medications: Meds: Current Medications Trimethoprim/ Sulfamethoxazole (Bactrim Ds) 1 tab 1X ONCE PO Last administered on 12/31/16 00:02; Start 12/30/16 at 23:55; Stop 12/30/16 at 23:56 ; Status DC Multi-Ingredient Ointment (Analgesic [place]) 1 jazlyn PRN QID PRN TP MUSCLE PAIN; Start 12/31/16 at 00:00 Al Hydroxide/Mg Hydroxide (Mylanta Plus Xs) 15 ml PRN AFTMEALHC PRN PO DYSPEPSIA; Start 12/31/16 at 00:00 Magnesium Hydroxide (Milk Of Magnesia) 2,400 mg PRN QHS PRN PO CONSTIPATION; Start 12/31/16 at 00:00 Alprazolam (Xanax) 0.5 mg TID PO Last administered on 01/10/17 19:34; Start at 09:00 Divalproex Sodium (Depakote Sprinkles) 250 mg BID PO Last administered on 19:33; Start 12/31/16 at 09:00 Donepezil HCl (Aricept) 10 mg QHS PO Last administered on 01/10/17 19:34; Start 12/31/16 at 21:00 Lorazepam (Ativan) 0.5 mg PRN Q4HRS PRN PO ANXIETY / AGITATION Last administered on 12/31/16 05:50; Start 12/31/16 at 00:00; Stop 12/31/16 at 06:19 ; Status DC Paroxetine HCl (Paxil) 20 mg DAILY PO Last administered on 01/03/17 08:27; Start 12/31/16 at 09:00; Stop 01/03/17 at 13:07; Status DC Quetiapine Fumarate (SEROquel) 25 mg TID PO Last administered on 01/10/17 19:33 ; Start 12/31/16 at 09:00 Temazepam (Restoril) 15 mg PRN QHS PRN PO INSOMNIA; Start 12/31/16 at 00:00 Olanzapine (Zyprexa Zydis) 2.5 mg PRN Q2HR PRN PO PSYCHOSIS Last administered on 12/31/16 06:26; Start 12/31/16 at 06:30 Hydroxyzine HCl (Atarax) 50 mg PRN TID PRN PO ANXIETY; Start 12/31/16 at 07:30 Lorazepam (Ativan) 0.5 mg DAILY IM Last administered on 01/04/17 08:41; Start 12/31/16 at 08:30; Stop 01/04/17 at 18:32; Status DC Haloperidol Lactate (Haldol) 5 mg DAILY IM Last administered on 01/04/17 08:40 ; Start 12/31/16 at 08:30; Stop 01/04/17 at 18:32; Status DC Acetaminophen (Tylenol) 650 mg PRN Q4HRS PRN PO PAIN / TEMP; Start 12/31/16 at 09:15 Bisacodyl (Dulcolax Tab) 10 mg PRN QHS PRN PO CONSTIPATION; Start 12/31/16 at 09:15 Diphenhydramine HCl (Benadryl) 25 mg PRN Q8HRS PRN PO RASH; Start 12/31/16 at 09:15 Senna/Docusate Sodium (Senna Plus) 1 tab PRN QHS PRN PO CONSTIPATION; Start at 09:15 Lisinopril (Prinivil) 40 mg DAILY PO Last administered on 01/10/17 09:26; Start 12/31/16 at 09:30 Vitamin D (Vitamin D3) 50,000 unit WEEKLY PO Last administered on 01/08/17 08: 01; Start 01/08/17 at 09:00; Stop 03/10/17 at 08:59 Escitalopram Oxalate (Lexapro) 10 mg DAILY PO Last administered on 01/10/17 09: 28; Start 01/04/17 at 09:00 Buspirone HCl (Buspar) 5 mg BID PO Last administered on 01/10/17 09:28; Start 01/09/17 at 21:00; Stop 01/10/17 at 18:33; Status DC Buspirone HCl (Buspar) 10 mg BID PO Last administered on 01/10/17 19:36; Start 01/10/17 at 21:00 Active Scripts Active Reported Senna S Tablet (Sennosides/Docusate Sodium) 1 Each Tablet 1 Tab PO PRN QHS PRN Tylenol (Acetaminophen) 325 Mg Tablet 650 Mg PO PRN Q4HRS PRN Lorazepam 0.5 Mg Tablet 0.5 Mg PO PRN Q4HRS PRN Bisacodyl 5 Mg Tablet.dr 10 Mg PO PRN QHS PRN Diphenhydramine Hcl 25 Mg Tablet 25 Mg PO PRN QHS PRN Temazepam 15 Mg Capsule 15 Mg PO PRN QHS PRN Depakote Sprinkle (Divalproex Sodium) 125 Mg Cap.sprink 250 Mg PO BID Benadryl (Diphenhydramine Hcl) 25 Mg Capsule 25 Mg PO PRN Q8HRS PRN Seroquel (Quetiapine Fumarate) 25 Mg Tablet 25 Mg PO TID Alprazolam 0.5 Mg Tablet 0.5 Mg PO TID Aricept (Donepezil Hcl) 10 Mg Tablet 10 Mg PO QHS Paroxetine Hcl 20 Mg Tablet 20 Mg PO DAILY Lisinopril 40 Mg Tablet 40 Mg PO DAILY Diagnosis: Problems: (1) Dementia with behavioral disturbance TIFFANIE SCOTT MD Jan 10, 2017 21:08
--- NOTE | 2017-01-10 23:24 | PN ---
DATE: 01/09/2017 PSYCHIATRIC PROGRESS NOTE This is a late entry for 01/09/2017, covers elements not covered in my initial note. SUBJECTIVE: Overall, the patient remains confused, forgetful, talking about having being placed in assisted, agitated at times, then went to her room, and then was better. REVIEW OF SYSTEMS: No CV, , eye, ENT or pulmonary system symptoms on review. Reliability poor. MENTAL STATUS EXAM: Oriented to herself. Insight, judgment, recent and remote memory, attention, concentration, fund of knowledge poor, consistent with her diagnosis mentioned in my initial note. PLAN: Continue current psychotropics mentioned in my initial note. Adjust further as clinically indicated. MAN Matt SCOTT MD DR: ALE/amina JOB#: [id number] / [id number]
[2017-01-11 05:50] VITALS: BP 175/80
[2017-01-11] MEDS: QUEtiapine 25 MG TABLET. PO SCH ×3 (08:51→19:18)
[2017-01-11] MEDS: LISINOPRIL 20 MG TABLET PO SCH (08:51)
[2017-01-11] MEDS: busPIRone 10 MG TABLET. PO SCH ×2 (08:51→19:18)
[2017-01-11] MEDS: ESCITALOPRAM 10 MG TABLET. PO SCH (08:51)
[2017-01-11] MEDS: DIVALPROEX 125 MG CAP.SPRINK PO SCH ×2 (08:51→19:18)
[2017-01-11] MEDS: ALPRAZOLAM 0.5 MG TABLET PO SCH ×3 (08:52→19:18)
[2017-01-11 16:18] VITALS: BP 122/82
[2017-01-11] MEDS: DONEPEZIL HCL 10 MG TABLET PO SCH (19:18)
--- NOTE | 2017-01-11 21:05 | PDOC ---
Exam Ab Demential Exam: Ab Note: Please also refer to the separate dictated note~for this date of service dictated separately.~Patient seen individually. Discussed the patient with Nursing staff reviewed the chart.~Reviewed interim history and current functioning. Reviewed vital signs,~Labs/ Radiology~and current medications noted below. Continue current treatment with the changes noted in the dictated addendum note Assessment: Vital Signs: Vital Signs Date Time Temp Pulse Resp B/P Pulse Ox O2 Delivery O2 Flow Rate FiO2 01/11/17 16:18 97.5 74 18 122/82 95 01/11/17 05:50 Room Air I&O Intake and Output 01/11/17 06:59 Intake Total 750 ml Balance 750 ml Intake Oral 750 ml # Voids 2 # Bowel Movements 1 Current Medications: Meds: Current Medications Trimethoprim/ Sulfamethoxazole (Bactrim Ds) 1 tab 1X ONCE PO Last administered on 12/31/16 00:02; Start 12/30/16 at 23:55; Stop 12/30/16 at 23:56 ; Status DC Multi-Ingredient Ointment (Analgesic [place]) 1 jazlyn PRN QID PRN TP MUSCLE PAIN; Start 12/31/16 at 00:00 Al Hydroxide/Mg Hydroxide (Mylanta Plus Xs) 15 ml PRN AFTMEALHC PRN PO DYSPEPSIA; Start 12/31/16 at 00:00 Magnesium Hydroxide (Milk Of Magnesia) 2,400 mg PRN QHS PRN PO CONSTIPATION; Start 12/31/16 at 00:00 Alprazolam (Xanax) 0.5 mg TID PO Last administered on 01/11/17 19:18; Start at 09:00 Divalproex Sodium (Depakote Sprinkles) 250 mg BID PO Last administered on 19:18; Start 12/31/16 at 09:00 Donepezil HCl (Aricept) 10 mg QHS PO Last administered on 01/11/17 19:18; Start 12/31/16 at 21:00 Lorazepam (Ativan) 0.5 mg PRN Q4HRS PRN PO ANXIETY / AGITATION Last administered on 12/31/16 05:50; Start 12/31/16 at 00:00; Stop 12/31/16 at 06:19 ; Status DC Paroxetine HCl (Paxil) 20 mg DAILY PO Last administered on 01/03/17 08:27; Start 12/31/16 at 09:00; Stop 01/03/17 at 13:07; Status DC Quetiapine Fumarate (SEROquel) 25 mg TID PO Last administered on 01/11/17 19:18 ; Start 12/31/16 at 09:00 Temazepam (Restoril) 15 mg PRN QHS PRN PO INSOMNIA; Start 12/31/16 at 00:00 Olanzapine (Zyprexa Zydis) 2.5 mg PRN Q2HR PRN PO PSYCHOSIS Last administered on 12/31/16 06:26; Start 12/31/16 at 06:30 Hydroxyzine HCl (Atarax) 50 mg PRN TID PRN PO ANXIETY; Start 12/31/16 at 07:30 Lorazepam (Ativan) 0.5 mg DAILY IM Last administered on 01/04/17 08:41; Start 12/31/16 at 08:30; Stop 01/04/17 at 18:32; Status DC Haloperidol Lactate (Haldol) 5 mg DAILY IM Last administered on 01/04/17 08:40 ; Start 12/31/16 at 08:30; Stop 01/04/17 at 18:32; Status DC Acetaminophen (Tylenol) 650 mg PRN Q4HRS PRN PO PAIN / TEMP; Start 12/31/16 at 09:15 Bisacodyl (Dulcolax Tab) 10 mg PRN QHS PRN PO CONSTIPATION; Start 12/31/16 at 09:15 Diphenhydramine HCl (Benadryl) 25 mg PRN Q8HRS PRN PO RASH; Start 12/31/16 at 09:15 Senna/Docusate Sodium (Senna Plus) 1 tab PRN QHS PRN PO CONSTIPATION; Start at 09:15 Lisinopril (Prinivil) 40 mg DAILY PO Last administered on 01/11/17 08:51; Start 12/31/16 at 09:30 Vitamin D (Vitamin D3) 50,000 unit WEEKLY PO Last administered on 01/08/17 08: 01; Start 01/08/17 at 09:00; Stop 03/10/17 at 08:59 Escitalopram Oxalate (Lexapro) 10 mg DAILY PO Last administered on 01/11/17 08: 51; Start 01/04/17 at 09:00 Buspirone HCl (Buspar) 5 mg BID PO Last administered on 01/10/17 09:28; Start 01/09/17 at 21:00; Stop 01/10/17 at 18:33; Status DC Buspirone HCl (Buspar) 10 mg BID PO Last administered on 01/11/17 19:18; Start 01/10/17 at 21:00 Active Scripts Active Reported Senna S Tablet (Sennosides/Docusate Sodium) 1 Each Tablet 1 Tab PO PRN QHS PRN Tylenol (Acetaminophen) 325 Mg Tablet 650 Mg PO PRN Q4HRS PRN Lorazepam 0.5 Mg Tablet 0.5 Mg PO PRN Q4HRS PRN Bisacodyl 5 Mg Tablet.dr 10 Mg PO PRN QHS PRN Diphenhydramine Hcl 25 Mg Tablet 25 Mg PO PRN QHS PRN Temazepam 15 Mg Capsule 15 Mg PO PRN QHS PRN Depakote Sprinkle (Divalproex Sodium) 125 Mg Cap.sprink 250 Mg PO BID Benadryl (Diphenhydramine Hcl) 25 Mg Capsule 25 Mg PO PRN Q8HRS PRN Seroquel (Quetiapine Fumarate) 25 Mg Tablet 25 Mg PO TID Alprazolam 0.5 Mg Tablet 0.5 Mg PO TID Aricept (Donepezil Hcl) 10 Mg Tablet 10 Mg PO QHS Paroxetine Hcl 20 Mg Tablet 20 Mg PO DAILY Lisinopril 40 Mg Tablet 40 Mg PO DAILY Diagnosis: Problems: (1) Dementia with behavioral disturbance TIFFANIE SCOTT MD Jan 11, 2017 21:05
--- NOTE | 2017-01-12 03:25 | PN ---
DATE: 01/10/2017 PSYCHIATRIC PROGRESS NOTE This is a late entry of 01/10/2017 covers elements not covered in my initial note. SUBJECTIVE: Overall, per nursing report, the patient has been somewhat delusional, anxious believes she is in long-term, wandering, refusing medications, had a bad day per nursing report, told nursing staff that she was "f----ING whore." She states medications are poison through her medications down the hallway. Daughter came to visit her son called and talked to her, but by the time I met with her evening of 01/10/2017, she had forgotten all of this and said that the family did not know where she was. REVIEW OF SYSTEMS: No CV, , pulmonary, eye, ENT system symptoms on review. Reliability poor. MENTAL STATUS EXAM: Oriented to herself. Insight, judgment, recent and remote memory, attention, concentration, fund of knowledge poor, consistent with her diagnosis. LABORATORY DATA: Reviewed. DIAGNOSES: Mentioned in my initial note. PLAN: Increase BuSpar from 5 b.i.d. to 10 b.i.d. Maintain the rest of psychotropics. Adjust as indicated. Valproic acid level is 53 and Depakote 250 b.i.d. MAN Matt SCOTT MD DR: ALE/amina JOB#: [id number] / [id number]
[2017-01-12 05:51] VITALS: BP 176/92
[2017-01-12] MEDS: DIVALPROEX 125 MG CAP.SPRINK PO SCH ×2 (08:43→19:48)
[2017-01-12] MEDS: QUEtiapine 25 MG TABLET. PO SCH ×3 (08:43→19:48)
[2017-01-12] MEDS: ESCITALOPRAM 10 MG TABLET. PO SCH (08:44)
[2017-01-12] MEDS: busPIRone 10 MG TABLET. PO SCH ×3 (08:44→19:48)
[2017-01-12] MEDS: LISINOPRIL 20 MG TABLET PO SCH (08:44)
[2017-01-12] MEDS: ALPRAZOLAM 0.5 MG TABLET PO SCH ×2 (08:46→13:53)
[2017-01-12] MEDS ORDERED: ALPRAZOLAM 0.25 MG TABLET PO ONE (14:30)
[2017-01-12 16:22] VITALS: BP 141/76
[2017-01-12] MEDS: ALPRAZOLAM 0.25 MG TABLET PO SCH ×2 (18:11→19:50)
[2017-01-12] MEDS: DONEPEZIL HCL 10 MG TABLET PO SCH (19:48)
--- NOTE | 2017-01-12 21:10 | PDOC ---
Exam Ab Demential Exam: Ab Note: Please also refer to the separate dictated note~for this date of service dictated separately.~Patient seen individually. Discussed the patient with Nursing staff reviewed the chart.~Reviewed interim history and current functioning. Reviewed vital signs,~Labs/ Radiology~and current medications noted below. Continue current treatment with the changes noted in the dictated addendum note Assessment: Vital Signs: Vital Signs Date Time Temp Pulse Resp B/P Pulse Ox O2 Delivery O2 Flow Rate FiO2 01/12/17 16:22 97.3 78 20 141/76 95 01/11/17 05:50 Room Air I&O Intake and Output 01/12/17 07:00 Intake Total 720 ml Balance 720 ml Intake Oral 720 ml # Voids 1 # Bowel Movements 1 Current Medications: Meds: Current Medications Trimethoprim/ Sulfamethoxazole (Bactrim Ds) 1 tab 1X ONCE PO Last administered on 12/31/16 00:02; Start 12/30/16 at 23:55; Stop 12/30/16 at 23:56 ; Status DC Multi-Ingredient Ointment (Analgesic [place]) 1 jazlyn PRN QID PRN TP MUSCLE PAIN; Start 12/31/16 at 00:00 Al Hydroxide/Mg Hydroxide (Mylanta Plus Xs) 15 ml PRN AFTMEALHC PRN PO DYSPEPSIA; Start 12/31/16 at 00:00 Magnesium Hydroxide (Milk Of Magnesia) 2,400 mg PRN QHS PRN PO CONSTIPATION; Start 12/31/16 at 00:00 Alprazolam (Xanax) 0.5 mg TID PO Last administered on 01/12/17 08:46; Start at 09:00; Stop 01/12/17 at 14:01; Status DC Divalproex Sodium (Depakote Sprinkles) 250 mg BID PO Last administered on 19:48; Start 12/31/16 at 09:00 Donepezil HCl (Aricept) 10 mg QHS PO Last administered on 01/12/17 19:48; Start 12/31/16 at 21:00 Lorazepam (Ativan) 0.5 mg PRN Q4HRS PRN PO ANXIETY / AGITATION Last administered on 12/31/16 05:50; Start 12/31/16 at 00:00; Stop 12/31/16 at 06:19 ; Status DC Paroxetine HCl (Paxil) 20 mg DAILY PO Last administered on 01/03/17 08:27; Start 12/31/16 at 09:00; Stop 01/03/17 at 13:07; Status DC Quetiapine Fumarate (SEROquel) 25 mg TID PO Last administered on 01/12/17 19:48 ; Start 12/31/16 at 09:00 Temazepam (Restoril) 15 mg PRN QHS PRN PO INSOMNIA; Start 12/31/16 at 00:00 Olanzapine (Zyprexa Zydis) 2.5 mg PRN Q2HR PRN PO PSYCHOSIS Last administered on 12/31/16 06:26; Start 12/31/16 at 06:30 Hydroxyzine HCl (Atarax) 50 mg PRN TID PRN PO ANXIETY; Start 12/31/16 at 07:30 Lorazepam (Ativan) 0.5 mg DAILY IM Last administered on 01/04/17 08:41; Start 12/31/16 at 08:30; Stop 01/04/17 at 18:32; Status DC Haloperidol Lactate (Haldol) 5 mg DAILY IM Last administered on 01/04/17 08:40 ; Start 12/31/16 at 08:30; Stop 01/04/17 at 18:32; Status DC Acetaminophen (Tylenol) 650 mg PRN Q4HRS PRN PO PAIN / TEMP; Start 12/31/16 at 09:15 Bisacodyl (Dulcolax Tab) 10 mg PRN QHS PRN PO CONSTIPATION; Start 12/31/16 at 09:15 Diphenhydramine HCl (Benadryl) 25 mg PRN Q8HRS PRN PO RASH; Start 12/31/16 at 09:15 Senna/Docusate Sodium (Senna Plus) 1 tab PRN QHS PRN PO CONSTIPATION; Start at 09:15 Lisinopril (Prinivil) 40 mg DAILY PO Last administered on 01/12/17 08:44; Start 12/31/16 at 09:30 Vitamin D (Vitamin D3) 50,000 unit WEEKLY PO Last administered on 01/08/17 08: 01; Start 01/08/17 at 09:00; Stop 03/10/17 at 08:59 Escitalopram Oxalate (Lexapro) 10 mg DAILY PO Last administered on 01/12/17 08: 44; Start 01/04/17 at 09:00 Buspirone HCl (Buspar) 5 mg BID PO Last administered on 01/10/17 09:28; Start 01/09/17 at 21:00; Stop 01/10/17 at 18:33; Status DC Buspirone HCl (Buspar) 10 mg BID PO Last administered on 01/12/17 08:44; Start 01/10/17 at 21:00; Stop 01/12/17 at 14:01; Status DC Alprazolam (Xanax) 0.25 mg QID PO Last administered on 01/12/17 19:50; Start at 17:00 Buspirone HCl (Buspar) 10 mg TID PO Last administered on 01/12/17 19:48; Start 01/12/17 at 14:00 Alprazolam (Xanax) 0.25 mg 1X ONCE PO Last administered on 01/12/17 14:47; Start 01/12/17 at 14:30; Stop 01/12/17 at 14:31; Status DC Active Scripts Active Reported Senna S Tablet (Sennosides/Docusate Sodium) 1 Each Tablet 1 Tab PO PRN QHS PRN Tylenol (Acetaminophen) 325 Mg Tablet 650 Mg PO PRN Q4HRS PRN Lorazepam 0.5 Mg Tablet 0.5 Mg PO PRN Q4HRS PRN Bisacodyl 5 Mg Tablet.dr 10 Mg PO PRN QHS PRN Diphenhydramine Hcl 25 Mg Tablet 25 Mg PO PRN QHS PRN Temazepam 15 Mg Capsule 15 Mg PO PRN QHS PRN Depakote Sprinkle (Divalproex Sodium) 125 Mg Cap.sprink 250 Mg PO BID Benadryl (Diphenhydramine Hcl) 25 Mg Capsule 25 Mg PO PRN Q8HRS PRN Seroquel (Quetiapine Fumarate) 25 Mg Tablet 25 Mg PO TID Alprazolam 0.5 Mg Tablet 0.5 Mg PO TID Aricept (Donepezil Hcl) 10 Mg Tablet 10 Mg PO QHS Paroxetine Hcl 20 Mg Tablet 20 Mg PO DAILY Lisinopril 40 Mg Tablet 40 Mg PO DAILY Diagnosis: Problems: (1) Dementia with behavioral disturbance TIFFANIE SCOTT MD Jan 12, 2017 21:10
--- NOTE | 2017-01-12 23:05 | PN ---
DATE: 01/11/2017 This late entry for 01/11/2017 covers elements not covered in my initial note. SUBJECTIVE: The patient has had a better day, no name calling towards nursing staff, still gets anxious, very confused, compliant with the medications. Daughter visited and the visit went well. The patient did not remember this as I met with her the evening of 01/11/2017 and was asking me if her family knew where she was. REVIEW OF SYSTEMS: No CV, , eye, ENT, pulmonary system symptoms on review. Reliability poor. MENTAL STATUS EXAM: Oriented to herself. Insight, judgment, recent and remote memory, attention, concentration, fund of knowledge poor, consistent with her diagnosis mentioned in my initial note. PLAN: Continue psychotropics mentioned in my initial note, may need to increase BuSpar for anxiety and perhaps taper the Xanax, but we will reassess for this on 01/12/2017. TIFFANIE SCOTT MD DR: ALE/amina JOB#: [id number] / [id number]
[2017-01-13 05:09] VITALS: BP 139/83
[2017-01-13] MEDS: DIVALPROEX 125 MG CAP.SPRINK PO SCH ×2 (08:11→20:14)
[2017-01-13] MEDS: QUEtiapine 25 MG TABLET. PO SCH ×3 (08:11→20:15)
[2017-01-13] MEDS: ESCITALOPRAM 10 MG TABLET. PO SCH (08:11)
[2017-01-13] MEDS: LISINOPRIL 20 MG TABLET PO SCH (08:11)
[2017-01-13] MEDS: busPIRone 10 MG TABLET. PO SCH ×3 (08:11→20:15)
[2017-01-13] MEDS: ALPRAZOLAM 0.25 MG TABLET PO SCH ×4 (08:13→20:15)
[2017-01-13 15:47] VITALS: BP 148/86
[2017-01-13] MEDS: DONEPEZIL HCL 10 MG TABLET PO SCH (20:15)
--- NOTE | 2017-01-13 21:22 | PDOC ---
Exam Ab Demential Exam: Ab Note: Please also refer to the separate dictated note~for this date of service dictated separately.~Patient seen individually. Discussed the patient with Nursing staff reviewed the chart.~Reviewed interim history and current functioning. Reviewed vital signs,~Labs/ Radiology~and current medications noted below. Continue current treatment with the changes noted in the dictated addendum note Assessment: Vital Signs: Vital Signs Date Time Temp Pulse Resp B/P Pulse Ox O2 Delivery O2 Flow Rate FiO2 01/13/17 15:47 97.5 92 18 148/86 93 01/11/17 05:50 Room Air I&O Intake and Output 01/13/17 07:00 Intake Total 960 ml Balance 960 ml Intake Oral 960 ml Current Medications: Meds: Current Medications Trimethoprim/ Sulfamethoxazole (Bactrim Ds) 1 tab 1X ONCE PO Last administered on 12/31/16 00:02; Start 12/30/16 at 23:55; Stop 12/30/16 at 23:56 ; Status DC Multi-Ingredient Ointment (Analgesic [place]) 1 jazlyn PRN QID PRN TP MUSCLE PAIN; Start 12/31/16 at 00:00 Al Hydroxide/Mg Hydroxide (Mylanta Plus Xs) 15 ml PRN AFTMEALHC PRN PO DYSPEPSIA; Start 12/31/16 at 00:00 Magnesium Hydroxide (Milk Of Magnesia) 2,400 mg PRN QHS PRN PO CONSTIPATION; Start 12/31/16 at 00:00 Alprazolam (Xanax) 0.5 mg TID PO Last administered on 01/12/17 08:46; Start at 09:00; Stop 01/12/17 at 14:01; Status DC Divalproex Sodium (Depakote Sprinkles) 250 mg BID PO Last administered on 20:14; Start 12/31/16 at 09:00 Donepezil HCl (Aricept) 10 mg QHS PO Last administered on 01/13/17 20:15; Start 12/31/16 at 21:00 Lorazepam (Ativan) 0.5 mg PRN Q4HRS PRN PO ANXIETY / AGITATION Last administered on 12/31/16 05:50; Start 12/31/16 at 00:00; Stop 12/31/16 at 06:19 ; Status DC Paroxetine HCl (Paxil) 20 mg DAILY PO Last administered on 01/03/17 08:27; Start 12/31/16 at 09:00; Stop 01/03/17 at 13:07; Status DC Quetiapine Fumarate (SEROquel) 25 mg TID PO Last administered on 01/13/17 14:11 ; Start 12/31/16 at 09:00; Stop 01/13/17 at 18:06; Status DC Temazepam (Restoril) 15 mg PRN QHS PRN PO INSOMNIA; Start 12/31/16 at 00:00 Olanzapine (Zyprexa Zydis) 2.5 mg PRN Q2HR PRN PO PSYCHOSIS Last administered on 12/31/16 06:26; Start 12/31/16 at 06:30 Hydroxyzine HCl (Atarax) 50 mg PRN TID PRN PO ANXIETY; Start 12/31/16 at 07:30 Lorazepam (Ativan) 0.5 mg DAILY IM Last administered on 01/04/17 08:41; Start 12/31/16 at 08:30; Stop 01/04/17 at 18:32; Status DC Haloperidol Lactate (Haldol) 5 mg DAILY IM Last administered on 01/04/17 08:40 ; Start 12/31/16 at 08:30; Stop 01/04/17 at 18:32; Status DC Acetaminophen (Tylenol) 650 mg PRN Q4HRS PRN PO PAIN / TEMP; Start 12/31/16 at 09:15 Bisacodyl (Dulcolax Tab) 10 mg PRN QHS PRN PO CONSTIPATION; Start 12/31/16 at 09:15 Diphenhydramine HCl (Benadryl) 25 mg PRN Q8HRS PRN PO RASH; Start 12/31/16 at 09:15 Senna/Docusate Sodium (Senna Plus) 1 tab PRN QHS PRN PO CONSTIPATION; Start at 09:15 Lisinopril (Prinivil) 40 mg DAILY PO Last administered on 01/13/17 08:11; Start 12/31/16 at 09:30 Vitamin D (Vitamin D3) 50,000 unit WEEKLY PO Last administered on 01/08/17 08: 01; Start 01/08/17 at 09:00; Stop 03/10/17 at 08:59 Escitalopram Oxalate (Lexapro) 10 mg DAILY PO Last administered on 01/13/17 08: 11; Start 01/04/17 at 09:00 Buspirone HCl (Buspar) 5 mg BID PO Last administered on 01/10/17 09:28; Start 01/09/17 at 21:00; Stop 01/10/17 at 18:33; Status DC Buspirone HCl (Buspar) 10 mg BID PO Last administered on 01/12/17 08:44; Start 01/10/17 at 21:00; Stop 01/12/17 at 14:01; Status DC Alprazolam (Xanax) 0.25 mg QID PO Last administered on 01/13/17 20:15; Start at 17:00 Buspirone HCl (Buspar) 10 mg TID PO Last administered on 01/13/17 20:15; Start 01/12/17 at 14:00 Alprazolam (Xanax) 0.25 mg 1X ONCE PO Last administered on 01/12/17 14:47; Start 01/12/17 at 14:30; Stop 01/12/17 at 14:31; Status DC Quetiapine Fumarate (SEROquel) 25 mg DAILY@14 PO ; Start 01/14/17 at 14:00 Quetiapine Fumarate (SEROquel) 37.5 mg BID@09,21 PO Last administered on 20:15; Start 01/13/17 at 21:00 Active Scripts Active Reported Senna S Tablet (Sennosides/Docusate Sodium) 1 Each Tablet 1 Tab PO PRN QHS PRN Tylenol (Acetaminophen) 325 Mg Tablet 650 Mg PO PRN Q4HRS PRN Lorazepam 0.5 Mg Tablet 0.5 Mg PO PRN Q4HRS PRN Bisacodyl 5 Mg Tablet.dr 10 Mg PO PRN QHS PRN Diphenhydramine Hcl 25 Mg Tablet 25 Mg PO PRN QHS PRN Temazepam 15 Mg Capsule 15 Mg PO PRN QHS PRN Depakote Sprinkle (Divalproex Sodium) 125 Mg Cap.sprink 250 Mg PO BID Benadryl (Diphenhydramine Hcl) 25 Mg Capsule 25 Mg PO PRN Q8HRS PRN Seroquel (Quetiapine Fumarate) 25 Mg Tablet 25 Mg PO TID Alprazolam 0.5 Mg Tablet 0.5 Mg PO TID Aricept (Donepezil Hcl) 10 Mg Tablet 10 Mg PO QHS Paroxetine Hcl 20 Mg Tablet 20 Mg PO DAILY Lisinopril 40 Mg Tablet 40 Mg PO DAILY Diagnosis: Problems: (1) Dementia with behavioral disturbance (2) Anxiety disorder (3) Dementia in Alzheimer's disease with delusions (4) Dementia in Alzheimer's disease with depression (5) Dementia, vascular, with delusions (6) Dementia, vascular, with depression (7) Impulse control disorder TIFFANIE SCOTT MD Jan 13, 2017 21:22
[2017-01-14 05:53] VITALS: BP 152/77
[2017-01-14] MEDS: ESCITALOPRAM 10 MG TABLET. PO SCH (08:32)
[2017-01-14] MEDS: QUEtiapine 25 MG TABLET. PO SCH ×3 (08:32→19:46)
[2017-01-14] MEDS: LISINOPRIL 20 MG TABLET PO SCH (08:33)
[2017-01-14] MEDS: busPIRone 10 MG TABLET. PO SCH ×3 (08:33→19:46)
[2017-01-14] MEDS: DIVALPROEX 125 MG CAP.SPRINK PO SCH ×2 (08:33→19:46)
[2017-01-14] MEDS: ALPRAZOLAM 0.25 MG TABLET PO SCH ×4 (08:35→19:46)
[2017-01-14] MEDS: OLANZAPINE ZYDIS 5 MG TAB.RAPDIS PO PRN (14:33)
[2017-01-14 16:19] VITALS: BP 123/68
[2017-01-14] MEDS: DONEPEZIL HCL 10 MG TABLET PO SCH (19:47)
--- NOTE | 2017-01-14 21:15 | PDOC ---
Exam Ab Demential Exam: Ab Note: Please also refer to the separate dictated note~for this date of service dictated separately.~Patient seen individually. Discussed the patient with Nursing staff reviewed the chart.~Reviewed interim history and current functioning. Reviewed vital signs,~Labs/ Radiology~and current medications noted below. Continue current treatment with the changes noted in the dictated addendum note Assessment: Vital Signs: Vital Signs Date Time Temp Pulse Resp B/P Pulse Ox O2 Delivery O2 Flow Rate FiO2 01/14/17 16:19 97.5 87 18 123/68 94 Room Air I&O Intake and Output 01/14/17 07:00 Intake Total 1080 ml Balance 1080 ml Intake Oral 1080 ml Current Medications: Meds: Current Medications Trimethoprim/ Sulfamethoxazole (Bactrim Ds) 1 tab 1X ONCE PO Last administered on 12/31/16 00:02; Start 12/30/16 at 23:55; Stop 12/30/16 at 23:56 ; Status DC Multi-Ingredient Ointment (Analgesic [place]) 1 jazlyn PRN QID PRN TP MUSCLE PAIN; Start 12/31/16 at 00:00 Al Hydroxide/Mg Hydroxide (Mylanta Plus Xs) 15 ml PRN AFTMEALHC PRN PO DYSPEPSIA; Start 12/31/16 at 00:00 Magnesium Hydroxide (Milk Of Magnesia) 2,400 mg PRN QHS PRN PO CONSTIPATION; Start 12/31/16 at 00:00 Alprazolam (Xanax) 0.5 mg TID PO Last administered on 01/12/17 08:46; Start at 09:00; Stop 01/12/17 at 14:01; Status DC Divalproex Sodium (Depakote Sprinkles) 250 mg BID PO Last administered on 19:46; Start 12/31/16 at 09:00 Donepezil HCl (Aricept) 10 mg QHS PO Last administered on 01/14/17 19:47; Start 12/31/16 at 21:00 Lorazepam (Ativan) 0.5 mg PRN Q4HRS PRN PO ANXIETY / AGITATION Last administered on 12/31/16 05:50; Start 12/31/16 at 00:00; Stop 12/31/16 at 06:19 ; Status DC Paroxetine HCl (Paxil) 20 mg DAILY PO Last administered on 01/03/17 08:27; Start 12/31/16 at 09:00; Stop 01/03/17 at 13:07; Status DC Quetiapine Fumarate (SEROquel) 25 mg TID PO Last administered on 01/13/17 14:11 ; Start 12/31/16 at 09:00; Stop 01/13/17 at 18:06; Status DC Temazepam (Restoril) 15 mg PRN QHS PRN PO INSOMNIA; Start 12/31/16 at 00:00 Olanzapine (Zyprexa Zydis) 2.5 mg PRN Q2HR PRN PO PSYCHOSIS Last administered on 01/14/17 14:33; Start 12/31/16 at 06:30 Hydroxyzine HCl (Atarax) 50 mg PRN TID PRN PO ANXIETY; Start 12/31/16 at 07:30 Lorazepam (Ativan) 0.5 mg DAILY IM Last administered on 01/04/17 08:41; Start 12/31/16 at 08:30; Stop 01/04/17 at 18:32; Status DC Haloperidol Lactate (Haldol) 5 mg DAILY IM Last administered on 01/04/17 08:40 ; Start 12/31/16 at 08:30; Stop 01/04/17 at 18:32; Status DC Acetaminophen (Tylenol) 650 mg PRN Q4HRS PRN PO PAIN / TEMP; Start 12/31/16 at 09:15 Bisacodyl (Dulcolax Tab) 10 mg PRN QHS PRN PO CONSTIPATION; Start 12/31/16 at 09:15 Diphenhydramine HCl (Benadryl) 25 mg PRN Q8HRS PRN PO RASH; Start 12/31/16 at 09:15 Senna/Docusate Sodium (Senna Plus) 1 tab PRN QHS PRN PO CONSTIPATION; Start at 09:15 Lisinopril (Prinivil) 40 mg DAILY PO Last administered on 01/14/17 08:33; Start 12/31/16 at 09:30 Vitamin D (Vitamin D3) 50,000 unit WEEKLY PO Last administered on 01/08/17 08: 01; Start 01/08/17 at 09:00; Stop 03/10/17 at 08:59 Escitalopram Oxalate (Lexapro) 10 mg DAILY PO Last administered on 01/14/17 08: 32; Start 01/04/17 at 09:00 Buspirone HCl (Buspar) 5 mg BID PO Last administered on 01/10/17 09:28; Start 01/09/17 at 21:00; Stop 01/10/17 at 18:33; Status DC Buspirone HCl (Buspar) 10 mg BID PO Last administered on 01/12/17 08:44; Start 01/10/17 at 21:00; Stop 01/12/17 at 14:01; Status DC Alprazolam (Xanax) 0.25 mg QID PO Last administered on 01/14/17 19:46; Start at 17:00 Buspirone HCl (Buspar) 10 mg TID PO Last administered on 01/14/17 19:46; Start 01/12/17 at 14:00 Alprazolam (Xanax) 0.25 mg 1X ONCE PO Last administered on 01/12/17 14:47; Start 01/12/17 at 14:30; Stop 01/12/17 at 14:31; Status DC Quetiapine Fumarate (SEROquel) 25 mg DAILY@14 PO Last administered on 01/14/17 13:01; Start 01/14/17 at 14:00 Quetiapine Fumarate (SEROquel) 37.5 mg BID@09,21 PO Last administered on 19:46; Start 01/13/17 at 21:00 Active Scripts Active Reported Senna S Tablet (Sennosides/Docusate Sodium) 1 Each Tablet 1 Tab PO PRN QHS PRN Tylenol (Acetaminophen) 325 Mg Tablet 650 Mg PO PRN Q4HRS PRN Lorazepam 0.5 Mg Tablet 0.5 Mg PO PRN Q4HRS PRN Bisacodyl 5 Mg Tablet.dr 10 Mg PO PRN QHS PRN Diphenhydramine Hcl 25 Mg Tablet 25 Mg PO PRN QHS PRN Temazepam 15 Mg Capsule 15 Mg PO PRN QHS PRN Depakote Sprinkle (Divalproex Sodium) 125 Mg Cap.sprink 250 Mg PO BID Benadryl (Diphenhydramine Hcl) 25 Mg Capsule 25 Mg PO PRN Q8HRS PRN Seroquel (Quetiapine Fumarate) 25 Mg Tablet 25 Mg PO TID Alprazolam 0.5 Mg Tablet 0.5 Mg PO TID Aricept (Donepezil Hcl) 10 Mg Tablet 10 Mg PO QHS Paroxetine Hcl 20 Mg Tablet 20 Mg PO DAILY Lisinopril 40 Mg Tablet 40 Mg PO DAILY Diagnosis: Problems: (1) Dementia with behavioral disturbance (2) Anxiety disorder (3) Dementia in Alzheimer's disease with delusions (4) Dementia in Alzheimer's disease with depression (5) Dementia, vascular, with delusions (6) Dementia, vascular, with depression (7) Impulse control disorder TIFFANIE SCOTT MD Jan 14, 2017 21:15
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
--- NOTE | 2017-01-15 01:08 | PN ---
DATE: 01/13/2017 PSYCHIATRIC PROGRESS NOTE This is a late entry for 01/13/2017, covers elements not covered in my initial note. SUBJECTIVE: The patient has been anxious, irritable, confused, forgetful, verbally abusive with staff during showers. Compliant with her medications. Slept 8-1/4 hours. REVIEW OF SYSTEMS: Ambulation impaired with a walker. I met with her in her room. No CV, , pulmonary, eye, ENT system symptoms on review. MENTAL STATUS EXAM: Oriented to herself. Insight, judgment, recent and remote memory, attention, concentration, fund of knowledge poor, consistent with her diagnosis mentioned in my initial note. PLAN: Increase Seroquel from 25 mg 3 times a day to Seroquel 37.5 mg a.m. and p.m., and 25 mg in the afternoon. Maintain the rest of the psychotropics, adjust as clinically indicated. Valproic acid level therapeutic at 53. TIFFANIE SCOTT MD DR: ALE/amina JOB#: [id number] / [id number]
[2017-01-15 05:38] VITALS: BP 156/80
[2017-01-15 08:01] LABS: BASO # 0.1 x10^3/uL (0.0-0.2); BASO % 1 % (0-3); EOS # 0.2 x10^3/uL (0.0-0.7); EOS % 3 % (0-3); HEMATOCRIT 38.2 % (36.0-47.0); HEMOGLOBIN 12.4 g/dL (12.0-15.5); LYMPH # 2.2 x10^3/uL (1.0-4.8); LYMPH % 37 % (24-48); MEAN CORPUSCULAR HEMOGLOBIN 28 pg (25-35); MEAN CORPUSCULAR HGB CONC 32 g/dL (31-37); MEAN CORPUSCULAR VOLUME 88 fL (79-100); MONO # 0.6 x10^3/uL (0.0-1.1); MONO % 10 % (0-9); NEUT # 2.9 x10^3uL (1.8-7.7); NEUT % 49 % (31-73); PLATELET COUNT 195 x10^3/uL (140-400); RED BLOOD COUNT 4.37 x10^6/uL (3.50-5.40); RED CELL DISTRIBUTION WIDTH 15.4 % (11.5-14.5); WHITE BLOOD COUNT 5.9 x10^3/uL (4.0-11.0)
[2017-01-15 08:12] LABS: ALBUMIN/GLOBULIN RATIO 0.9 (1.0-1.7); ALK PHOS 81 U/L (46-116); ALT (SGPT) 22 U/L (14-59); ANION GAP 6 (6-14); AST (SGOT) 18 U/L (15-37); BLOOD UREA NITROGEN 12 mg/dL (7-20); BUN/CREATININE RATIO 15 (6-20); CALCIUM 8.7 mg/dL (8.5-10.1); CARBON DIOXIDE 32 mmol/L (21-32); CHLORIDE 107 mmol/L (98-107); CREATININE 0.8 mg/dL (0.6-1.0); GFR 68.2; GLUCOSE 86 mg/dL (70-99); POTASSIUM 3.9 mmol/L (3.5-5.1); SODIUM 145 mmol/L (136-145); TOTAL BILIRUBIN 0.3 mg/dL (0.2-1.0); TOTAL PROTEIN 6.5 g/dL (6.4-8.2)
[2017-01-15 08:13] LABS: VAL ACID 51 mcg/mL (50-100)
[2017-01-15] MEDS: DIVALPROEX 125 MG CAP.SPRINK PO SCH ×2 (08:51→19:32)
[2017-01-15] MEDS: busPIRone 10 MG TABLET. PO SCH ×3 (08:51→19:32)
[2017-01-15] MEDS: ALPRAZOLAM 0.25 MG TABLET PO SCH ×4 (08:52→19:32)
[2017-01-15] MEDS: QUEtiapine 25 MG TABLET. PO SCH ×3 (08:52→19:31)
[2017-01-15] MEDS: ESCITALOPRAM 10 MG TABLET. PO SCH (08:52)
[2017-01-15] MEDS: LISINOPRIL 20 MG TABLET PO SCH (08:52)
[2017-01-15] MEDS: CHOLECALCIFEROL (VITAMIN D3) 50,000 UNIT CAPSULE PO SCH (08:53)
[2017-01-15 15:45] VITALS: BP 131/77
[2017-01-15] MEDS: DONEPEZIL HCL 10 MG TABLET PO SCH (19:31)
--- NOTE | 2017-01-15 22:03 | PDOC ---
Exam Ab Demential Exam: Ab Note: Please also refer to the separate dictated note~for this date of service dictated separately.~Patient seen individually. Discussed the patient with Nursing staff reviewed the chart.~Reviewed interim history and current functioning. Reviewed vital signs,~Labs/ Radiology~and current medications noted below. Continue current treatment with the changes noted in the dictated addendum note Assessment: Vital Signs: Vital Signs Date Time Temp Pulse Resp B/P Pulse Ox O2 Delivery O2 Flow Rate FiO2 01/15/17 15:45 97.3 77 18 131/77 94 01/15/17 05:38 Room Air I&O Intake and Output 01/15/17 07:00 Intake Total 720 ml Balance 720 ml Intake Oral 720 ml Labs: Laboratory Tests Test 01/15/17 07:45 White Blood Count 5.9x10^3/uL (4.0-11.0) Red Blood Count 4.37x10^6/uL (3.50-5.40) Hemoglobin 12.4g/dL (12.0-15.5) Hematocrit 38.2% (36.0-47.0) Mean Corpuscular Volume 88fL (79-100) Mean Corpuscular Hemoglobin 28pg (25-35) Mean Corpuscular Hemoglobin Concent 32g/dL (31-37) Red Cell Distribution Width 15.4% (11.5-14.5) H Platelet Count 195x10^3/uL (140-400) Neutrophils (%) (Auto) 49% (31-73) Lymphocytes (%) (Auto) 37% (24-48) Monocytes (%) (Auto) 10% (0-9) H Eosinophils (%) (Auto) 3% (0-3) Basophils (%) (Auto) 1% (0-3) Neutrophils # (Auto) 2.9x10^3uL (1.8-7.7) Lymphocytes # (Auto) 2.2x10^3/uL (1.0-4.8) Monocytes # (Auto) 0.6x10^3/uL (0.0-1.1) Eosinophils # (Auto) 0.2x10^3/uL (0.0-0.7) Basophils # (Auto) 0.1x10^3/uL (0.0-0.2) Sodium Level 145mmol/L (136-145) Potassium Level 3.9mmol/L (3.5-5.1) Chloride Level 107mmol/L (98-107) Carbon Dioxide Level 32mmol/L (21-32) Anion Gap 6 (6-14) Blood Urea Nitrogen 12mg/dL (7-20) Creatinine 0.8mg/dL (0.6-1.0) Estimated GFR (Cockcroft-Gault) 68.2 BUN/Creatinine Ratio 15 (6-20) Glucose Level 86mg/dL (70-99) Calcium Level 8.7mg/dL (8.5-10.1) Magnesium Level 2.0mg/dL (1.8-2.4) Total Bilirubin 0.3mg/dL (0.2-1.0) Aspartate Amino Transferase (AST) 18U/L (15-37) Alanine Aminotransferase (ALT) 22U/L (14-59) Alkaline Phosphatase 81U/L (46-116) Total Protein 6.5g/dL (6.4-8.2) Albumin 3.0g/dL (3.4-5.0) L Albumin/Globulin Ratio 0.9 (1.0-1.7) L Valproic Acid Level 51mcg/mL (50-100) Valproic Acid Last Dose Date 01/14/17 Valproic Acid Last Dose Time 2100 Current Medications: Meds: Current Medications Trimethoprim/ Sulfamethoxazole (Bactrim Ds) 1 tab 1X ONCE PO Last administered on 12/31/16 00:02; Start 12/30/16 at 23:55; Stop 12/30/16 at 23:56 ; Status DC Multi-Ingredient Ointment (Analgesic [place]) 1 jazlyn PRN QID PRN TP MUSCLE PAIN; Start 12/31/16 at 00:00 Al Hydroxide/Mg Hydroxide (Mylanta Plus Xs) 15 ml PRN AFTMEALHC PRN PO DYSPEPSIA; Start 12/31/16 at 00:00 Magnesium Hydroxide (Milk Of Magnesia) 2,400 mg PRN QHS PRN PO CONSTIPATION; Start 12/31/16 at 00:00 Alprazolam (Xanax) 0.5 mg TID PO Last administered on 01/12/17 08:46; Start at 09:00; Stop 01/12/17 at 14:01; Status DC Divalproex Sodium (Depakote Sprinkles) 250 mg BID PO Last administered on 19:32; Start 12/31/16 at 09:00 Donepezil HCl (Aricept) 10 mg QHS PO Last administered on 01/15/17 19:31; Start 12/31/16 at 21:00 Lorazepam (Ativan) 0.5 mg PRN Q4HRS PRN PO ANXIETY / AGITATION Last administered on 12/31/16 05:50; Start 12/31/16 at 00:00; Stop 12/31/16 at 06:19 ; Status DC Paroxetine HCl (Paxil) 20 mg DAILY PO Last administered on 01/03/17 08:27; Start 12/31/16 at 09:00; Stop 01/03/17 at 13:07; Status DC Quetiapine Fumarate (SEROquel) 25 mg TID PO Last administered on 01/13/17 14:11 ; Start 12/31/16 at 09:00; Stop 01/13/17 at 18:06; Status DC Temazepam (Restoril) 15 mg PRN QHS PRN PO INSOMNIA; Start 12/31/16 at 00:00 Olanzapine (Zyprexa Zydis) 2.5 mg PRN Q2HR PRN PO PSYCHOSIS Last administered on 01/14/17 14:33; Start 12/31/16 at 06:30 Hydroxyzine HCl (Atarax) 50 mg PRN TID PRN PO ANXIETY; Start 12/31/16 at 07:30 Lorazepam (Ativan) 0.5 mg DAILY IM Last administered on 01/04/17 08:41; Start 12/31/16 at 08:30; Stop 01/04/17 at 18:32; Status DC Haloperidol Lactate (Haldol) 5 mg DAILY IM Last administered on 01/04/17 08:40 ; Start 12/31/16 at 08:30; Stop 01/04/17 at 18:32; Status DC Acetaminophen (Tylenol) 650 mg PRN Q4HRS PRN PO PAIN / TEMP; Start 12/31/16 at 09:15 Bisacodyl (Dulcolax Tab) 10 mg PRN QHS PRN PO CONSTIPATION; Start 12/31/16 at 09:15 Diphenhydramine HCl (Benadryl) 25 mg PRN Q8HRS PRN PO RASH; Start 12/31/16 at 09:15 Senna/Docusate Sodium (Senna Plus) 1 tab PRN QHS PRN PO CONSTIPATION; Start at 09:15 Lisinopril (Prinivil) 40 mg DAILY PO Last administered on 01/15/17 08:52; Start 12/31/16 at 09:30 Vitamin D (Vitamin D3) 50,000 unit WEEKLY PO Last administered on 01/15/17 08: 53; Start 01/08/17 at 09:00; Stop 03/10/17 at 08:59 Escitalopram Oxalate (Lexapro) 10 mg DAILY PO Last administered on 01/15/17 08: 52; Start 01/04/17 at 09:00 Buspirone HCl (Buspar) 5 mg BID PO Last administered on 01/10/17 09:28; Start 01/09/17 at 21:00; Stop 01/10/17 at 18:33; Status DC Buspirone HCl (Buspar) 10 mg BID PO Last administered on 01/12/17 08:44; Start 01/10/17 at 21:00; Stop 01/12/17 at 14:01; Status DC Alprazolam (Xanax) 0.25 mg QID PO Last administered on 01/15/17 19:32; Start at 17:00 Buspirone HCl (Buspar) 10 mg TID PO Last administered on 01/15/17 19:32; Start 01/12/17 at 14:00 Alprazolam (Xanax) 0.25 mg 1X ONCE PO Last administered on 01/12/17 14:47; Start 01/12/17 at 14:30; Stop 01/12/17 at 14:31; Status DC Quetiapine Fumarate (SEROquel) 25 mg DAILY@14 PO Last administered on 01/15/17 13:03; Start 01/14/17 at 14:00 Quetiapine Fumarate (SEROquel) 37.5 mg BID@ PO Last administered on 19:31; Start 4/6/17 at 21:00 Active Scripts Active Reported Senna S Tablet (Sennosides/Docusate Sodium) 1 Each Tablet 1 Tab PO PRN QHS PRN Tylenol (Acetaminophen) 325 Mg Tablet 650 Mg PO PRN Q4HRS PRN Lorazepam 0.5 Mg Tablet 0.5 Mg PO PRN Q4HRS PRN Bisacodyl 5 Mg Tablet.dr 10 Mg PO PRN QHS PRN Diphenhydramine Hcl 25 Mg Tablet 25 Mg PO PRN QHS PRN Temazepam 15 Mg Capsule 15 Mg PO PRN QHS PRN Depakote Sprinkle (Divalproex Sodium) 125 Mg Cap.sprink 250 Mg PO BID Benadryl (Diphenhydramine Hcl) 25 Mg Capsule 25 Mg PO PRN Q8HRS PRN Seroquel (Quetiapine Fumarate) 25 Mg Tablet 25 Mg PO TID Alprazolam 0.5 Mg Tablet 0.5 Mg PO TID Aricept (Donepezil Hcl) 10 Mg Tablet 10 Mg PO QHS Paroxetine Hcl 20 Mg Tablet 20 Mg PO DAILY Lisinopril 40 Mg Tablet 40 Mg PO DAILY Diagnosis: Problems: (1) Dementia with behavioral disturbance (2) Anxiety disorder (3) Dementia in Alzheimer's disease with delusions (4) Dementia in Alzheimer's disease with depression (5) Dementia, vascular, with delusions (6) Dementia, vascular, with depression (7) Impulse control disorder TIFFANIE SCOTT MD Jan 15, 2017 22:03
[2017-01-16 05:42] VITALS: BP 154/68
[2017-01-16] MEDS: ALPRAZOLAM 0.25 MG TABLET PO SCH ×4 (08:51→19:41)
[2017-01-16] MEDS: QUEtiapine 25 MG TABLET. PO SCH ×3 (08:51→19:39)
[2017-01-16] MEDS: busPIRone 10 MG TABLET. PO SCH ×3 (08:51→19:39)
[2017-01-16] MEDS: LISINOPRIL 20 MG TABLET PO SCH (08:51)
[2017-01-16] MEDS: DIVALPROEX 125 MG CAP.SPRINK PO SCH ×2 (08:52→19:39)
[2017-01-16] MEDS: ESCITALOPRAM 10 MG TABLET. PO SCH (08:52)
[2017-01-16] MEDS ORDERED: ONDANSETRON ODT 4 MG TAB.RAPDIS PO PRN (09:00)
[2017-01-16 15:55] VITALS: BP 133/73
[2017-01-16] MEDS: HYDROXYZINE HCL 25 MG TABLET PO PRN (16:34)
[2017-01-16] MEDS: DONEPEZIL HCL 10 MG TABLET PO SCH (19:39)
--- NOTE | 2017-01-16 20:20 | PN ---
DATE: 01/14/2017 PSYCHIATRIC PROGRESS NOTE This is a late entry of 01/14/2017 covers elements not covered in my initial note. SUBJECTIVE: The patient remains confused, but nursing report, irritable, sarcastic exit seeking at times. Receive Zyprexa at 12:15 then did better. REVIEW OF SYSTEMS: No CV, , pulmonary, eye, ENT system symptoms on review. Reliability poor. Ambulation impaired with a walker. I met with her in her room. MENTAL STATUS EXAM: Oriented to herself. Insight, judgment, recent and remote memory, attention, concentration, fund of knowledge poor, consistent with her diagnosis mentioned in my initial note. PLAN: Continue current psychotropics. Adjust as indicated clinically. MAN Matt SCOTT MD DR: ALE/amina JOB#: [id number] / [id number]
--- NOTE | 2017-01-16 20:21 | PN ---
DATE: 01/15/2017 PSYCHIATRIC PROGRESS NOTE This is a late entry of 01/15/2017 covers elements not covered in my initial note. SUBJECTIVE: Per nursing report, the patient has done better. Takes her medications whole, irritable, sarcastic at times wants to return home. I met with her in her room. REVIEW OF SYSTEMS: Ambulation impaired with a walker. No CV, , pulmonary, eye, ENT system symptoms on review. Reliability poor. MENTAL STATUS EXAM: Oriented to herself. Insight, judgment, recent and remote memory, attention, concentration, fund of knowledge poor, consistent with her diagnoses mentioned in my initial note. PLAN: Continue current psychotropics. Adjust as clinically indicated. MAN Matt SCOTT MD DR: ALE/amina JOB#: [id number] / [id number]
--- NOTE | 2017-01-16 21:01 | PDOC ---
Exam Ab Demential Exam: Ab Note: Please also refer to the separate dictated note~for this date of service dictated separately.~Patient seen individually. Discussed the patient with Nursing staff reviewed the chart.~Reviewed interim history and current functioning. Reviewed vital signs,~Labs/ Radiology~and current medications noted below. Continue current treatment with the changes noted in the dictated addendum note Assessment: Vital Signs: Vital Signs Date Time Temp Pulse Resp B/P Pulse Ox O2 Delivery O2 Flow Rate FiO2 01/16/17 15:55 97.6 67 20 133/73 93 Room Air I&O Intake and Output 01/16/17 07:00 Intake Total 840 ml Balance 840 ml Intake Oral 840 ml Current Medications: Meds: Current Medications Trimethoprim/ Sulfamethoxazole (Bactrim Ds) 1 tab 1X ONCE PO Last administered on 12/31/16 00:02; Start 12/30/16 at 23:55; Stop 12/30/16 at 23:56 ; Status DC Multi-Ingredient Ointment (Analgesic [place]) 1 jazlyn PRN QID PRN TP MUSCLE PAIN; Start 12/31/16 at 00:00 Al Hydroxide/Mg Hydroxide (Mylanta Plus Xs) 15 ml PRN AFTMEALHC PRN PO DYSPEPSIA; Start 12/31/16 at 00:00 Magnesium Hydroxide (Milk Of Magnesia) 2,400 mg PRN QHS PRN PO CONSTIPATION; Start 12/31/16 at 00:00 Alprazolam (Xanax) 0.5 mg TID PO Last administered on 01/12/17 08:46; Start at 09:00; Stop 01/12/17 at 14:01; Status DC Divalproex Sodium (Depakote Sprinkles) 250 mg BID PO Last administered on 19:39; Start 12/31/16 at 09:00 Donepezil HCl (Aricept) 10 mg QHS PO Last administered on 01/16/17 19:39; Start 12/31/16 at 21:00 Lorazepam (Ativan) 0.5 mg PRN Q4HRS PRN PO ANXIETY / AGITATION Last administered on 12/31/16 05:50; Start 12/31/16 at 00:00; Stop 12/31/16 at 06:19 ; Status DC Paroxetine HCl (Paxil) 20 mg DAILY PO Last administered on 01/03/17 08:27; Start 12/31/16 at 09:00; Stop 01/03/17 at 13:07; Status DC Quetiapine Fumarate (SEROquel) 25 mg TID PO Last administered on 01/13/17 14:11 ; Start 12/31/16 at 09:00; Stop 01/13/17 at 18:06; Status DC Temazepam (Restoril) 15 mg PRN QHS PRN PO INSOMNIA; Start 12/31/16 at 00:00 Olanzapine (Zyprexa Zydis) 2.5 mg PRN Q2HR PRN PO PSYCHOSIS Last administered on 01/14/17 14:33; Start 12/31/16 at 06:30 Hydroxyzine HCl (Atarax) 50 mg PRN TID PRN PO ANXIETY Last administered on 16:34; Start 12/31/16 at 07:30 Lorazepam (Ativan) 0.5 mg DAILY IM Last administered on 01/04/17 08:41; Start 12/31/16 at 08:30; Stop 01/04/17 at 18:32; Status DC Haloperidol Lactate (Haldol) 5 mg DAILY IM Last administered on 01/04/17 08:40 ; Start 12/31/16 at 08:30; Stop 01/04/17 at 18:32; Status DC Acetaminophen (Tylenol) 650 mg PRN Q4HRS PRN PO PAIN / TEMP Last administered on 01/16/17 06:16; Start 12/31/16 at 09:15 Bisacodyl (Dulcolax Tab) 10 mg PRN QHS PRN PO CONSTIPATION; Start 12/31/16 at 09:15 Diphenhydramine HCl (Benadryl) 25 mg PRN Q8HRS PRN PO RASH; Start 12/31/16 at 09:15 Senna/Docusate Sodium (Senna Plus) 1 tab PRN QHS PRN PO CONSTIPATION; Start at 09:15 Lisinopril (Prinivil) 40 mg DAILY PO Last administered on 01/16/17 08:51; Start 12/31/16 at 09:30 Vitamin D (Vitamin D3) 50,000 unit WEEKLY PO Last administered on 01/15/17 08: 53; Start 01/08/17 at 09:00; Stop 03/10/17 at 08:59 Escitalopram Oxalate (Lexapro) 10 mg DAILY PO Last administered on 01/16/17 08: 52; Start 01/04/17 at 09:00 Buspirone HCl (Buspar) 5 mg BID PO Last administered on 01/10/17 09:28; Start 01/09/17 at 21:00; Stop 01/10/17 at 18:33; Status DC Buspirone HCl (Buspar) 10 mg BID PO Last administered on 01/12/17 08:44; Start 01/10/17 at 21:00; Stop 01/12/17 at 14:01; Status DC Alprazolam (Xanax) 0.25 mg QID PO Last administered on 01/16/17 19:41; Start at 17:00 Buspirone HCl (Buspar) 10 mg TID PO Last administered on 01/16/17 19:39; Start 01/12/17 at 14:00 Alprazolam (Xanax) 0.25 mg 1X ONCE PO Last administered on 01/12/17 14:47; Start 01/12/17 at 14:30; Stop 01/12/17 at 14:31; Status DC Quetiapine Fumarate (SEROquel) 25 mg DAILY@14 PO Last administered on 01/16/17 14:58; Start 01/14/17 at 14:00; Stop 01/16/17 at 18:25; Status DC Quetiapine Fumarate (SEROquel) 37.5 mg BID@09,21 PO Last administered on 19:39; Start 01/13/17 at 21:00 Ondansetron HCl (Zofran Odt) 4 mg PRN Q4HRS PRN PO NAUSEA/VOMITING Last administered on 01/16/17 09:38; Start 01/16/17 at 09:00 Quetiapine Fumarate (SEROquel) 25 mg DAILY@15 PO ; Start 01/17/17 at 15:00 Active Scripts Active Reported Senna S Tablet (Sennosides/Docusate Sodium) 1 Each Tablet 1 Tab PO PRN QHS PRN Tylenol (Acetaminophen) 325 Mg Tablet 650 Mg PO PRN Q4HRS PRN Lorazepam 0.5 Mg Tablet 0.5 Mg PO PRN Q4HRS PRN Bisacodyl 5 Mg Tablet.dr 10 Mg PO PRN QHS PRN Diphenhydramine Hcl 25 Mg Tablet 25 Mg PO PRN QHS PRN Temazepam 15 Mg Capsule 15 Mg PO PRN QHS PRN Depakote Sprinkle (Divalproex Sodium) 125 Mg Cap.sprink 250 Mg PO BID Benadryl (Diphenhydramine Hcl) 25 Mg Capsule 25 Mg PO PRN Q8HRS PRN Seroquel (Quetiapine Fumarate) 25 Mg Tablet 25 Mg PO TID Alprazolam 0.5 Mg Tablet 0.5 Mg PO TID Aricept (Donepezil Hcl) 10 Mg Tablet 10 Mg PO QHS Paroxetine Hcl 20 Mg Tablet 20 Mg PO DAILY Lisinopril 40 Mg Tablet 40 Mg PO DAILY Diagnosis: Problems: (1) Dementia with behavioral disturbance (2) Anxiety disorder (3) Dementia in Alzheimer's disease with delusions (4) Dementia in Alzheimer's disease with depression (5) Dementia, vascular, with delusions (6) Dementia, vascular, with depression (7) Impulse control disorder TIFFANIE SCOTT MD Jan 16, 2017 21:01
[2017-01-17 05:58] VITALS: BP 154/60
[2017-01-17] MEDS: DIVALPROEX 125 MG CAP.SPRINK PO SCH ×2 (08:28→19:20)
[2017-01-17] MEDS: busPIRone 10 MG TABLET. PO SCH ×3 (08:28→19:20)
[2017-01-17] MEDS: ESCITALOPRAM 10 MG TABLET. PO SCH (08:28)
[2017-01-17] MEDS: LISINOPRIL 20 MG TABLET PO SCH (08:29)
[2017-01-17] MEDS: SENNOSIDES/DOCUSATE 8.6/50MG TABLET. PO PRN ×2 (08:30→19:20)
[2017-01-17] MEDS: HYDROXYZINE HCL 25 MG TABLET PO PRN (08:34)
[2017-01-17] MEDS: QUEtiapine 25 MG TABLET. PO SCH (08:42)
[2017-01-17] MEDS: ALPRAZOLAM 0.25 MG TABLET PO SCH ×4 (08:44→19:20)
[2017-01-17] MEDS ORDERED: LORAZEPAM 2 MG/ML VIAL IV SCH (11:00)
[2017-01-17] MEDS: LORAZEPAM 2 MG/ML VIAL IM SCH (11:22)
[2017-01-17] MEDS ORDERED: QUEtiapine 25 MG TABLET. PO SCH (15:00)
[2017-01-17 16:04] VITALS: BP 121/79
[2017-01-17] MEDS: DONEPEZIL HCL 10 MG TABLET PO SCH (19:20)
--- NOTE | 2017-01-17 20:59 | PDOC ---
Exam Ab Demential Exam: Ab Note: Please also refer to the separate dictated note~for this date of service dictated separately.~Patient seen individually. Discussed the patient with Nursing staff reviewed the chart.~Reviewed interim history and current functioning. Reviewed vital signs,~Labs/ Radiology~and current medications noted below. Continue current treatment with the changes noted in the dictated addendum note Assessment: Vital Signs: Vital Signs Date Time Temp Pulse Resp B/P Pulse Ox O2 Delivery O2 Flow Rate FiO2 01/17/17 16:04 97.8 95 20 121/79 96 Room Air I&O Intake and Output 01/17/17 07:00 Intake Total 480 ml Balance 480 ml Intake Oral 480 ml # Voids 4 Current Medications: Meds: Current Medications Trimethoprim/ Sulfamethoxazole (Bactrim Ds) 1 tab 1X ONCE PO Last administered on 12/31/16 00:02; Start 12/30/16 at 23:55; Stop 12/30/16 at 23:56 ; Status DC Multi-Ingredient Ointment (Analgesic [place]) 1 jazlyn PRN QID PRN TP MUSCLE PAIN; Start 12/31/16 at 00:00 Al Hydroxide/Mg Hydroxide (Mylanta Plus Xs) 15 ml PRN AFTMEALHC PRN PO DYSPEPSIA; Start 12/31/16 at 00:00 Magnesium Hydroxide (Milk Of Magnesia) 2,400 mg PRN QHS PRN PO CONSTIPATION; Start 12/31/16 at 00:00 Alprazolam (Xanax) 0.5 mg TID PO Last administered on 01/12/17 08:46; Start at 09:00; Stop 01/12/17 at 14:01; Status DC Divalproex Sodium (Depakote Sprinkles) 250 mg BID PO Last administered on 19:20; Start 12/31/16 at 09:00 Donepezil HCl (Aricept) 10 mg QHS PO Last administered on 01/17/17 19:20; Start 12/31/16 at 21:00 Lorazepam (Ativan) 0.5 mg PRN Q4HRS PRN PO ANXIETY / AGITATION Last administered on 12/31/16 05:50; Start 12/31/16 at 00:00; Stop 12/31/16 at 06:19 ; Status DC Paroxetine HCl (Paxil) 20 mg DAILY PO Last administered on 01/03/17 08:27; Start 12/31/16 at 09:00; Stop 01/03/17 at 13:07; Status DC Quetiapine Fumarate (SEROquel) 25 mg TID PO Last administered on 01/13/17 14:11 ; Start 12/31/16 at 09:00; Stop 01/13/17 at 18:06; Status DC Temazepam (Restoril) 15 mg PRN QHS PRN PO INSOMNIA; Start 12/31/16 at 00:00 Olanzapine (Zyprexa Zydis) 2.5 mg PRN Q2HR PRN PO PSYCHOSIS Last administered on 01/14/17 14:33; Start 12/31/16 at 06:30 Hydroxyzine HCl (Atarax) 50 mg PRN TID PRN PO ANXIETY Last administered on 01/17 08:34; Start 12/31/16 at 07:30 Lorazepam (Ativan) 0.5 mg DAILY IM Last administered on 01/04/17 08:41; Start 12/31/16 at 08:30; Stop 01/04/17 at 18:32; Status DC Haloperidol Lactate (Haldol) 5 mg DAILY IM Last administered on 01/04/17 08:40 ; Start 12/31/16 at 08:30; Stop 01/04/17 at 18:32; Status DC Acetaminophen (Tylenol) 650 mg PRN Q4HRS PRN PO PAIN / TEMP Last administered on 01/16/17 06:16; Start 12/31/16 at 09:15 Bisacodyl (Dulcolax Tab) 10 mg PRN QHS PRN PO CONSTIPATION; Start 12/31/16 at 09:15 Diphenhydramine HCl (Benadryl) 25 mg PRN Q8HRS PRN PO RASH; Start 12/31/16 at 09:15 Senna/Docusate Sodium (Senna Plus) 1 tab PRN QHS PRN PO CONSTIPATION Last administered on 01/17/17 19:20; Start 12/31/16 at 09:15 Lisinopril (Prinivil) 40 mg DAILY PO Last administered on 01/17/17 08:29; Start 12/31/16 at 09:30 Vitamin D (Vitamin D3) 50,000 unit WEEKLY PO Last administered on 01/15/17 08: 53; Start 01/08/17 at 09:00; Stop 03/10/17 at 08:59 Escitalopram Oxalate (Lexapro) 10 mg DAILY PO Last administered on 01/17/17 08 :28; Start 01/04/17 at 09:00 Buspirone HCl (Buspar) 5 mg BID PO Last administered on 01/10/17 09:28; Start 01/09/17 at 21:00; Stop 01/10/17 at 18:33; Status DC Buspirone HCl (Buspar) 10 mg BID PO Last administered on 01/12/17 08:44; Start 01/10/17 at 21:00; Stop 01/12/17 at 14:01; Status DC Alprazolam (Xanax) 0.25 mg QID PO Last administered on 01/17/17 19:20; Start 01/12/17 at 17:00 Buspirone HCl (Buspar) 10 mg TID PO Last administered on 01/17/17 19:20; Start 01/12/17 at 14:00 Alprazolam (Xanax) 0.25 mg 1X ONCE PO Last administered on 01/12/17 14:47; Start 01/12/17 at 14:30; Stop 01/12/17 at 14:31; Status DC Quetiapine Fumarate (SEROquel) 25 mg DAILY@14 PO Last administered on 01/16/17 14:58; Start 01/14/17 at 14:00; Stop 01/16/17 at 18:25; Status DC Quetiapine Fumarate (SEROquel) 37.5 mg BID@,21 PO Last administered on 08:42; Start 01/13/17 at 21:00; Stop 01/17/17 at 18:29; Status DC Ondansetron HCl (Zofran Odt) 4 mg PRN Q4HRS PRN PO NAUSEA/VOMITING Last administered on 01/16/17 09:38; Start 01/16/17 at 09:00 Quetiapine Fumarate (SEROquel) 25 mg DAILY@15 PO Last administered on 14:01; Start 01/17/17 at 15:00; Stop 01/17/17 at 18:29; Status DC Lorazepam (Ativan) 0.5 mg DAILY IV ; Start 01/17/17 at 11:00; Stop 01/17/17 at 11:20; Status DC Lorazepam (Ativan) 0.5 mg DAILY IM Last administered on 01/17/17t 11:22; Start 01/17/17 at 11:00 Risperidone (Risperdal) 0.25 mg BID92 PO ; Start 01/18/17 at 09:00 Active Scripts Active Reported Senna S Tablet (Sennosides/Docusate Sodium) 1 Each Tablet 1 Tab PO PRN QHS PRN Tylenol (Acetaminophen) 325 Mg Tablet 650 Mg PO PRN Q4HRS PRN Lorazepam 0.5 Mg Tablet 0.5 Mg PO PRN Q4HRS PRN Bisacodyl 5 Mg Tablet.dr 10 Mg PO PRN QHS PRN Diphenhydramine Hcl 25 Mg Tablet 25 Mg PO PRN QHS PRN Temazepam 15 Mg Capsule 15 Mg PO PRN QHS PRN Depakote Sprinkle (Divalproex Sodium) 125 Mg Cap.sprink 250 Mg PO BID Benadryl (Diphenhydramine Hcl) 25 Mg Capsule 25 Mg PO PRN Q8HRS PRN Seroquel (Quetiapine Fumarate) 25 Mg Tablet 25 Mg PO TID Alprazolam 0.5 Mg Tablet 0.5 Mg PO TID Aricept (Donepezil Hcl) 10 Mg Tablet 10 Mg PO QHS Paroxetine Hcl 20 Mg Tablet 20 Mg PO DAILY Lisinopril 40 Mg Tablet 40 Mg PO DAILY Diagnosis: Problems: (1) Dementia with behavioral disturbance (2) Anxiety disorder (3) Dementia in Alzheimer's disease with delusions (4) Dementia in Alzheimer's disease with depression (5) Dementia, vascular, with delusions (6) Dementia, vascular, with depression (7) Impulse control disorder TIFFANIE SCOTT MD Jan 17, 2017 20:59
[2017-01-17 21:12] LABS: BILIRUBIN,URINE NEG (NEG); CLARITY,URINE HAZY; COLOR,URINE YELLOW; GLUCOSE,URINE NEG (NEG)
[2017-01-17 21:13] LABS: BACTERIA,URINE 0 /HPF (0-FEW); NITRITE,URINE NEG (NEG); UROBILINOGEN,URINE 0.2 mg/dL (0.2 mg/dL); WBC,URINE >40 /HPF (0-4)
--- NOTE | 2017-01-18 00:14 | PN ---
DATE: 01/16/2017 PSYCHIATRIC PROGRESS NOTE This is late entry of 01/16/2017, covers elements not covered in my initial note. SUBJECTIVE: Overall, the patient did better until about 4 p.m., then was quite paranoid, angry, fixated on wanting to leave, received Xanax, which seemed to help and we will change the evening Seroquel from 1400 to 3 p.m. to help with the owning. I met with her in her room. REVIEW OF SYSTEMS: Ambulation impaired with a walker. No CV, , eye, ENT or pulmonary system symptoms on review. Reliability poor. MENTAL STATUS EXAMINATION: Oriented to herself. Insight, judgment, recent and remote memory, attention, concentration, fund of knowledge poor, consistent with her diagnosis mentioned in my initial note. PLAN: Continue psychotropics mentioned in my initial note, other than change noted above. Adjust further as clinically indicated. TIFFANIE SCOTT MD DR: ALE/amina JOB#: [id number] / [id number]
[2017-01-18 06:19] VITALS: BP 136/71
[2017-01-18] MEDS: busPIRone 10 MG TABLET. PO SCH ×3 (08:17→19:22)
[2017-01-18] MEDS: DIVALPROEX 125 MG CAP.SPRINK PO SCH ×2 (08:18→19:22)
[2017-01-18] MEDS: ESCITALOPRAM 10 MG TABLET. PO SCH (08:18)
[2017-01-18] MEDS: LISINOPRIL 20 MG TABLET PO SCH (08:19)
[2017-01-18] MEDS: ALPRAZOLAM 0.25 MG TABLET PO SCH ×4 (08:26→19:21)
[2017-01-18] MEDS: risperiDONE 0.25 MG TABLET. PO SCH ×2 (08:26→12:56)
[2017-01-18] MEDS: LORAZEPAM 2 MG/ML VIAL IM SCH ×2 (12:23→14:40)
[2017-01-18] MEDS: CEFPODOXIME PROXETIL 100 MG TABLET PO SCH ×2 (12:55→19:22)
[2017-01-18 15:42] VITALS: BP 161/82
[2017-01-18] MEDS: DONEPEZIL HCL 10 MG TABLET PO SCH (19:22)
--- NOTE | 2017-01-18 21:01 | PDOC ---
Exam Ab Demential Exam: Ab Note: Please also refer to the separate dictated note~for this date of service dictated separately.~Patient seen individually. Discussed the patient with Nursing staff reviewed the chart.~Reviewed interim history and current functioning. Reviewed vital signs,~Labs/ Radiology~and current medications noted below. Continue current treatment with the changes noted in the dictated addendum note Assessment: Vital Signs: Vital Signs Date Time Temp Pulse Resp B/P Pulse Ox O2 Delivery O2 Flow Rate FiO2 01/18/17 15:42 98.4 75 18 161/82 95 01/18/17 06:19 Room Air I&O Intake and Output 01/18/17 07:00 Intake Total 1080 ml Balance 1080 ml Intake Oral 1080 ml Current Medications: Meds: Current Medications Trimethoprim/ Sulfamethoxazole (Bactrim Ds) 1 tab 1X ONCE PO Last administered on 12/31/16 00:02; Start 12/30/16 at 23:55; Stop 12/30/16 at 23:56 ; Status DC Multi-Ingredient Ointment (Analgesic [place]) 1 jazlyn PRN QID PRN TP MUSCLE PAIN; Start 12/31/16 at 00:00 Al Hydroxide/Mg Hydroxide (Mylanta Plus Xs) 15 ml PRN AFTMEALHC PRN PO DYSPEPSIA; Start 12/31/16 at 00:00 Magnesium Hydroxide (Milk Of Magnesia) 2,400 mg PRN QHS PRN PO CONSTIPATION; Start 12/31/16 at 00:00 Alprazolam (Xanax) 0.5 mg TID PO Last administered on 01/12/17 08:46; Start at 09:00; Stop 01/12/17 at 14:01; Status DC Divalproex Sodium (Depakote Sprinkles) 250 mg BID PO Last administered on 19:22; Start 12/31/16 at 09:00 Donepezil HCl (Aricept) 10 mg QHS PO Last administered on 01/18/17 19:22; Start 12/31/16 at 21:00 Lorazepam (Ativan) 0.5 mg PRN Q4HRS PRN PO ANXIETY / AGITATION Last administered on 12/31/16 05:50; Start 12/31/16 at 00:00; Stop 12/31/16 at 06:19 ; Status DC Paroxetine HCl (Paxil) 20 mg DAILY PO Last administered on 01/03/17 08:27; Start 12/31/16 at 09:00; Stop 01/03/17 at 13:07; Status DC Quetiapine Fumarate (SEROquel) 25 mg TID PO Last administered on 01/13/17 14:11 ; Start 12/31/16 at 09:00; Stop 01/13/17 at 18:06; Status DC Temazepam (Restoril) 15 mg PRN QHS PRN PO INSOMNIA; Start 12/31/16 at 00:00 Olanzapine (Zyprexa Zydis) 2.5 mg PRN Q2HR PRN PO PSYCHOSIS Last administered on 01/14/17 14:33; Start 12/31/16 at 06:30 Hydroxyzine HCl (Atarax) 50 mg PRN TID PRN PO ANXIETY Last administered on 01/17 08:34; Start 12/31/16 at 07:30 Lorazepam (Ativan) 0.5 mg DAILY IM Last administered on 01/04/17 08:41; Start 12/31/16 at 08:30; Stop 01/04/17 at 18:32; Status DC Haloperidol Lactate (Haldol) 5 mg DAILY IM Last administered on 01/04/17 08:40 ; Start 12/31/16 at 08:30; Stop 01/04/17 at 18:32; Status DC Acetaminophen (Tylenol) 650 mg PRN Q4HRS PRN PO PAIN / TEMP Last administered on 01/16/17 06:16; Start 12/31/16 at 09:15 Bisacodyl (Dulcolax Tab) 10 mg PRN QHS PRN PO CONSTIPATION; Start 12/31/16 at 09:15 Diphenhydramine HCl (Benadryl) 25 mg PRN Q8HRS PRN PO RASH; Start 12/31/16 at 09:15 Senna/Docusate Sodium (Senna Plus) 1 tab PRN QHS PRN PO CONSTIPATION Last administered on 01/17/17 19:20; Start 12/31/16 at 09:15 Lisinopril (Prinivil) 40 mg DAILY PO Last administered on 01/18/17 08:19; Start 12/31/16 at 09:30 Vitamin D (Vitamin D3) 50,000 unit WEEKLY PO Last administered on 01/15/17 08: 53; Start 01/08/17 at 09:00; Stop 03/10/17 at 08:59 Escitalopram Oxalate (Lexapro) 10 mg DAILY PO Last administered on 01/18/17 08 :18; Start 01/04/17 at 09:00 Buspirone HCl (Buspar) 5 mg BID PO Last administered on 01/10/17 09:28; Start 01/09/17 at 21:00; Stop 01/10/17 at 18:33; Status DC Buspirone HCl (Buspar) 10 mg BID PO Last administered on 01/12/17 08:44; Start 01/10/17 at 21:00; Stop 01/12/17 at 14:01; Status DC Alprazolam (Xanax) 0.25 mg QID PO Last administered on 01/18/17 19:21; Start 01/12/17 at 17:00 Buspirone HCl (Buspar) 10 mg TID PO Last administered on 01/18/17 19:22; Start 01/12/17 at 14:00 Alprazolam (Xanax) 0.25 mg 1X ONCE PO Last administered on 01/12/17 14:47; Start 01/12/17 at 14:30; Stop 01/12/17 at 14:31; Status DC Quetiapine Fumarate (SEROquel) 25 mg DAILY@14 PO Last administered on 01/16/17 14:58; Start 01/14/17 at 14:00; Stop 01/16/17 at 18:25; Status DC Quetiapine Fumarate (SEROquel) 37.5 mg BID@, PO Last administered on 08:42; Start 01/13/17 at 21:00; Stop 01/17/17 at 18:29; Status DC Ondansetron HCl (Zofran Odt) 4 mg PRN Q4HRS PRN PO NAUSEA/VOMITING Last administered on 01/16/17 09:38; Start 01/16/17 at 09:00 Quetiapine Fumarate (SEROquel) 25 mg DAILY@15 PO Last administered on 14:01; Start 01/17/17 at 15:00; Stop 01/17/17 at 18:29; Status DC Lorazepam (Ativan) 0.5 mg DAILY IV ; Start 01/17/17 at 11:00; Stop 01/17/17 at 11:20; Status DC Lorazepam (Ativan) 0.5 mg DAILY IM Last administered on 01/18/17 14:40; Start 01/17/17 at 11:00 Risperidone (Risperdal) 0.25 mg BID92 PO Last administered on 01/18/17 12:56; Start 01/18/17 at 09:00 Cefpodoxime Proxetil (Vantin) 200 mg BID PO Last administered on 01/18/17 19: 22; Start 01/18/17 at 12:30 Active Scripts Active Reported Senna S Tablet (Sennosides/Docusate Sodium) 1 Each Tablet 1 Tab PO PRN QHS PRN Tylenol (Acetaminophen) 325 Mg Tablet 650 Mg PO PRN Q4HRS PRN Lorazepam 0.5 Mg Tablet 0.5 Mg PO PRN Q4HRS PRN Bisacodyl 5 Mg Tablet.dr 10 Mg PO PRN QHS PRN Diphenhydramine Hcl 25 Mg Tablet 25 Mg PO PRN QHS PRN Temazepam 15 Mg Capsule 15 Mg PO PRN QHS PRN Depakote Sprinkle (Divalproex Sodium) 125 Mg Cap.sprink 250 Mg PO BID Benadryl (Diphenhydramine Hcl) 25 Mg Capsule 25 Mg PO PRN Q8HRS PRN Seroquel (Quetiapine Fumarate) 25 Mg Tablet 25 Mg PO TID Alprazolam 0.5 Mg Tablet 0.5 Mg PO TID Aricept (Donepezil Hcl) 10 Mg Tablet 10 Mg PO QHS Paroxetine Hcl 20 Mg Tablet 20 Mg PO DAILY Lisinopril 40 Mg Tablet 40 Mg PO DAILY Diagnosis: Problems: (1) Dementia with behavioral disturbance (2) Anxiety disorder (3) Dementia in Alzheimer's disease with delusions (4) Dementia in Alzheimer's disease with depression (5) Impulse control disorder TIFFANIE SCOTT MD Jan 18, 2017 21:01
--- NOTE | 2017-01-19 04:25 | PN ---
DATE: 01/17/2017 This late entry for 01/17/2017 covers elements not covered in my initial note. SUBJECTIVE: The patient slept 6-3/4 hours previous night. She has had extremely bad day on 01/17/2017. Nursing staff called me as an emergency several times all morning. The patient was agitated, taking the chair and banging it against the door, paranoid, delusional, spit out her medications all over the clothes of the nursing staff trying to administer it, paranoid, suspicious, believes she is being poisoned, verbally abusive. Nursing staff had the family intervene over the phone. The patient reluctantly took some of her medications then again was totally out of control, dangerous, received IM Ativan, which we have started scheduled. REVIEW OF SYSTEMS: No CV, , eye, ENT, pulmonary system symptoms on review. Reliability poor. MENTAL STATUS EXAMINATION: Oriented to herself. Insight, judgment, recent and remote memory, attention, concentration, fund of knowledge poor, consistent with her diagnosis. The patient is calmer by the time I met with her in the evening of 01/17/2017. LABORATORY DATA: Reviewed. IMPRESSION: Major neurocognitive disorder, Alzheimer, vascular with depression, delusion, behavioral disturbance. Rest unchanged. PLAN: Change Seroquel to Risperdal 0.25 mg ____. Maintain rest of psychotropics. Check UA, adjust further as clinically indicated. TIFFANIE SCOTT MD DR: ALE/amina JOB#: [id number] / [id number]
[2017-01-19 05:13] VITALS: BP 186/85
[2017-01-19] MEDS: ESCITALOPRAM 10 MG TABLET. PO SCH (09:16)
[2017-01-19] MEDS: busPIRone 10 MG TABLET. PO SCH ×3 (09:16→19:05)
[2017-01-19] MEDS: DIVALPROEX 125 MG CAP.SPRINK PO SCH ×2 (09:16→19:04)
[2017-01-19] MEDS: CEFPODOXIME PROXETIL 100 MG TABLET PO SCH ×2 (09:16→19:05)
[2017-01-19] MEDS: risperiDONE 0.25 MG TABLET. PO SCH ×2 (09:16→12:05)
[2017-01-19] MEDS: LISINOPRIL 20 MG TABLET PO SCH (09:16)
[2017-01-19] MEDS: ALPRAZOLAM 0.25 MG TABLET PO SCH ×4 (09:20→19:06)
[2017-01-19] MEDS: LORAZEPAM 2 MG/ML VIAL IM SCH (09:35)
[2017-01-19 15:38] VITALS: BP 131/84
[2017-01-19] MEDS: DONEPEZIL HCL 10 MG TABLET PO SCH (19:05)
--- NOTE | 2017-01-19 21:04 | PDOC ---
Exam Ab Demential Exam: Ab Note: Please also refer to the separate dictated note~for this date of service dictated separately.~Patient seen individually. Discussed the patient with Nursing staff reviewed the chart.~Reviewed interim history and current functioning. Reviewed vital signs,~Labs/ Radiology~and current medications noted below. Continue current treatment with the changes noted in the dictated addendum note Assessment: Vital Signs: Vital Signs Date Time Temp Pulse Resp B/P Pulse Ox O2 Delivery O2 Flow Rate FiO2 01/19/17 15:38 97.9 92 131/84 95 01/19/17 05:13 20 01/18/17 06:19 Room Air I&O Intake and Output 01/19/17 07:00 Intake Total 960 ml Balance 960 ml Intake Oral 960 ml # Voids 3 # Bowel Movements 1 Current Medications: Meds: Current Medications Trimethoprim/ Sulfamethoxazole (Bactrim Ds) 1 tab 1X ONCE PO Last administered on 12/31/16 00:02; Start 12/30/16 at 23:55; Stop 12/30/16 at 23:56 ; Status DC Multi-Ingredient Ointment (Analgesic [place]) 1 jazlyn PRN QID PRN TP MUSCLE PAIN; Start 12/31/16 at 00:00 Al Hydroxide/Mg Hydroxide (Mylanta Plus Xs) 15 ml PRN AFTMEALHC PRN PO DYSPEPSIA; Start 12/31/16 at 00:00 Magnesium Hydroxide (Milk Of Magnesia) 2,400 mg PRN QHS PRN PO CONSTIPATION; Start 12/31/16 at 00:00 Alprazolam (Xanax) 0.5 mg TID PO Last administered on 01/12/17 08:46; Start at 09:00; Stop 01/12/17 at 14:01; Status DC Divalproex Sodium (Depakote Sprinkles) 250 mg BID PO Last administered on 19:04; Start 12/31/16 at 09:00 Donepezil HCl (Aricept) 10 mg QHS PO Last administered on 01/19/17 19:05; Start 12/31/16 at 21:00 Lorazepam (Ativan) 0.5 mg PRN Q4HRS PRN PO ANXIETY / AGITATION Last administered on 12/31/16 05:50; Start 12/31/16 at 00:00; Stop 12/31/16 at 06:19 ; Status DC Paroxetine HCl (Paxil) 20 mg DAILY PO Last administered on 01/03/17 08:27; Start 12/31/16 at 09:00; Stop 01/03/17 at 13:07; Status DC Quetiapine Fumarate (SEROquel) 25 mg TID PO Last administered on 01/13/17 14:11 ; Start 12/31/16 at 09:00; Stop 01/13/17 at 18:06; Status DC Temazepam (Restoril) 15 mg PRN QHS PRN PO INSOMNIA; Start 12/31/16 at 00:00 Olanzapine (Zyprexa Zydis) 2.5 mg PRN Q2HR PRN PO PSYCHOSIS Last administered on 01/14/17 14:33; Start 12/31/16 at 06:30 Hydroxyzine HCl (Atarax) 50 mg PRN TID PRN PO ANXIETY Last administered on 01/17 08:34; Start 12/31/16 at 07:30 Lorazepam (Ativan) 0.5 mg DAILY IM Last administered on 01/04/17 08:41; Start 12/31/16 at 08:30; Stop 01/04/17 at 18:32; Status DC Haloperidol Lactate (Haldol) 5 mg DAILY IM Last administered on 01/04/17 08:40 ; Start 12/31/16 at 08:30; Stop 01/04/17 at 18:32; Status DC Acetaminophen (Tylenol) 650 mg PRN Q4HRS PRN PO PAIN / TEMP Last administered on 01/16/17 06:16; Start 12/31/16 at 09:15 Bisacodyl (Dulcolax Tab) 10 mg PRN QHS PRN PO CONSTIPATION; Start 12/31/16 at 09:15 Diphenhydramine HCl (Benadryl) 25 mg PRN Q8HRS PRN PO RASH; Start 12/31/16 at 09:15 Senna/Docusate Sodium (Senna Plus) 1 tab PRN QHS PRN PO CONSTIPATION Last administered on 01/17/17 19:20; Start 12/31/16 at 09:15 Lisinopril (Prinivil) 40 mg DAILY PO Last administered on 01/19/17 09:16; Start 12/31/16 at 09:30 Vitamin D (Vitamin D3) 50,000 unit WEEKLY PO Last administered on 01/15/17 08: 53; Start 01/08/17 at 09:00; Stop 03/10/17 at 08:59 Escitalopram Oxalate (Lexapro) 10 mg DAILY PO Last administered on 01/19/17 09 :16; Start 01/04/17 at 09:00 Buspirone HCl (Buspar) 5 mg BID PO Last administered on 01/10/17 09:28; Start 01/09/17 at 21:00; Stop 01/10/17 at 18:33; Status DC Buspirone HCl (Buspar) 10 mg BID PO Last administered on 01/12/17 08:44; Start 01/10/17 at 21:00; Stop 01/12/17 at 14:01; Status DC Alprazolam (Xanax) 0.25 mg QID PO Last administered on 01/19/17 19:06; Start 01/12/17 at 17:00 Buspirone HCl (Buspar) 10 mg TID PO Last administered on 01/19/17 19:05; Start 01/12/17 at 14:00 Alprazolam (Xanax) 0.25 mg 1X ONCE PO Last administered on 01/12/17 14:47; Start 01/12/17 at 14:30; Stop 01/12/17 at 14:31; Status DC Quetiapine Fumarate (SEROquel) 25 mg DAILY@14 PO Last administered on 01/16/17 14:58; Start 01/14/17 at 14:00; Stop 01/16/17 at 18:25; Status DC Quetiapine Fumarate (SEROquel) 37.5 mg BID@ PO Last administered on 08:42; Start 01/13/17 at 21:00; Stop 01/17/17 at 18:29; Status DC Ondansetron HCl (Zofran Odt) 4 mg PRN Q4HRS PRN PO NAUSEA/VOMITING Last administered on 01/16/17 09:38; Start 01/16/17 at 09:00 Quetiapine Fumarate (SEROquel) 25 mg DAILY@15 PO Last administered on 14:01; Start 01/17/17 at 15:00; Stop 01/17/17 at 18:29; Status DC Lorazepam (Ativan) 0.5 mg DAILY IV ; Start 01/17/17 at 11:00; Stop 01/17/17 at 11:20; Status DC Lorazepam (Ativan) 0.5 mg DAILY IM Last administered on 01/19/17 09:35; Start 01/17/17 at 11:00 Risperidone (Risperdal) 0.25 mg BID92 PO Last administered on 01/19/17 12:05; Start 01/18/17 at 09:00 Cefpodoxime Proxetil (Vantin) 200 mg BID PO Last administered on 01/19/17 19: 05; Start 01/18/17 at 12:30 Active Scripts Active Reported Senna S Tablet (Sennosides/Docusate Sodium) 1 Each Tablet 1 Tab PO PRN QHS PRN Tylenol (Acetaminophen) 325 Mg Tablet 650 Mg PO PRN Q4HRS PRN Lorazepam 0.5 Mg Tablet 0.5 Mg PO PRN Q4HRS PRN Bisacodyl 5 Mg Tablet.dr 10 Mg PO PRN QHS PRN Diphenhydramine Hcl 25 Mg Tablet 25 Mg PO PRN QHS PRN Temazepam 15 Mg Capsule 15 Mg PO PRN QHS PRN Depakote Sprinkle (Divalproex Sodium) 125 Mg Cap.sprink 250 Mg PO BID Benadryl (Diphenhydramine Hcl) 25 Mg Capsule 25 Mg PO PRN Q8HRS PRN Seroquel (Quetiapine Fumarate) 25 Mg Tablet 25 Mg PO TID Alprazolam 0.5 Mg Tablet 0.5 Mg PO TID Aricept (Donepezil Hcl) 10 Mg Tablet 10 Mg PO QHS Paroxetine Hcl 20 Mg Tablet 20 Mg PO DAILY Lisinopril 40 Mg Tablet 40 Mg PO DAILY Diagnosis: Problems: (1) Dementia with behavioral disturbance (2) Anxiety disorder (3) Dementia in Alzheimer's disease with delusions (4) Dementia in Alzheimer's disease with depression (5) Dementia, vascular, with delusions (6) Dementia, vascular, with depression (7) Impulse control disorder TIFFANIE SCOTT MD Jan 19, 2017 21:04
--- NOTE | 2017-01-19 22:46 | PN ---
DATE: 01/18/2017 PSYCHIATRIC PROGRESS NOTE This is late entry of 01/18/2017, covers elements not covered in my initial note. SUBJECTIVE: Per nursing report, the patient slept about 5 hours, still remains labile, confused, anxious. She was verbally abusive, aggressive, physically hitting the window, shaking the doors, but perhaps not as much as the day before. She slept in her room morning of 01/18/2017. Daughter visited her evening of 01/18/2017. UA does show UTI and she is started on antibiotics per Dr. Kramer. REVIEW OF SYSTEMS: Ambulation impaired with a walker. No CV, , pulmonary, eye, ENT system symptoms on review. Reliability poor. MENTAL STATUS EXAMINATION: Oriented to herself and situation. Insight, judgment, recent memory is impaired. Language function intact. Attention span short. Mood and affect remains labile. LABORATORY DATA: Reviewed. IMPRESSION: Unchanged from initial note. Additionally, the patient has a urinary tract infection. PLAN: Treat the UTI, continue psychotropics mentioned in my initial note, may need to make further adjustments if behaviors persist despite resolution of UTI. MAN Matt SCOTT MD DR: ALE/amina JOB#: [id number] / [id number]
[2017-01-20] MEDS: HYDROXYZINE HCL 25 MG TABLET PO PRN (05:17)
[2017-01-20 05:40] VITALS: BP 126/76
[2017-01-20] MEDS: LISINOPRIL 20 MG TABLET PO SCH (08:24)
[2017-01-20] MEDS: risperiDONE 0.25 MG TABLET. PO SCH ×2 (08:24→13:15)
[2017-01-20] MEDS: ESCITALOPRAM 10 MG TABLET. PO SCH (08:24)
[2017-01-20] MEDS: busPIRone 10 MG TABLET. PO SCH ×3 (08:25→20:00)
[2017-01-20] MEDS: DIVALPROEX 125 MG CAP.SPRINK PO SCH ×2 (08:25→20:00)
[2017-01-20] MEDS: CEFPODOXIME PROXETIL 100 MG TABLET PO SCH (08:25)
[2017-01-20] MEDS: ALPRAZOLAM 0.25 MG TABLET PO SCH ×4 (08:29→20:01)
[2017-01-20] MEDS: LORAZEPAM 2 MG/ML VIAL IM SCH (08:29)
[2017-01-20 15:39] VITALS: BP 109/72
[2017-01-20] MEDS: DONEPEZIL HCL 10 MG TABLET PO SCH (20:00)
--- NOTE | 2017-01-20 21:06 | PDOC ---
Exam Ab Demential Exam: Ab Note: Please also refer to the separate dictated note~for this date of service dictated separately.~Patient seen individually. Discussed the patient with Nursing staff reviewed the chart.~Reviewed interim history and current functioning. Reviewed vital signs,~Labs/ Radiology~and current medications noted below. Continue current treatment with the changes noted in the dictated addendum note Assessment: Vital Signs: Vital Signs Date Time Temp Pulse Resp B/P Pulse Ox O2 Delivery O2 Flow Rate FiO2 01/20/17 15:39 97.7 103 16 109/72 95 01/18/17 06:19 Room Air I&O Intake and Output 01/20/17 07:00 Intake Total 555 ml Balance 555 ml Intake Oral 555 ml # Bowel Movements 2 Current Medications: Meds: Current Medications Trimethoprim/ Sulfamethoxazole (Bactrim Ds) 1 tab 1X ONCE PO Last administered on 12/31/16 00:02; Start 12/30/16 at 23:55; Stop 12/30/16 at 23:56 ; Status DC Multi-Ingredient Ointment (Analgesic [place]) 1 jazlyn PRN QID PRN TP MUSCLE PAIN; Start 12/31/16 at 00:00 Al Hydroxide/Mg Hydroxide (Mylanta Plus Xs) 15 ml PRN AFTMEALHC PRN PO DYSPEPSIA; Start 12/31/16 at 00:00 Magnesium Hydroxide (Milk Of Magnesia) 2,400 mg PRN QHS PRN PO CONSTIPATION; Start 12/31/16 at 00:00 Alprazolam (Xanax) 0.5 mg TID PO Last administered on 01/12/17 08:46; Start at 09:00; Stop 01/12/17 at 14:01; Status DC Divalproex Sodium (Depakote Sprinkles) 250 mg BID PO Last administered on 20:00; Start 12/31/16 at 09:00 Donepezil HCl (Aricept) 10 mg QHS PO Last administered on 01/20/17 20:00; Start 12/31/16 at 21:00 Lorazepam (Ativan) 0.5 mg PRN Q4HRS PRN PO ANXIETY / AGITATION Last administered on 12/31/16 05:50; Start 12/31/16 at 00:00; Stop 12/31/16 at 06:19 ; Status DC Paroxetine HCl (Paxil) 20 mg DAILY PO Last administered on 01/03/17 08:27; Start 12/31/16 at 09:00; Stop 01/03/17 at 13:07; Status DC Quetiapine Fumarate (SEROquel) 25 mg TID PO Last administered on 01/13/17 14:11 ; Start 12/31/16 at 09:00; Stop 01/13/17 at 18:06; Status DC Temazepam (Restoril) 15 mg PRN QHS PRN PO INSOMNIA; Start 12/31/16 at 00:00 Olanzapine (Zyprexa Zydis) 2.5 mg PRN Q2HR PRN PO PSYCHOSIS Last administered on 01/14/17 14:33; Start 12/31/16 at 06:30 Hydroxyzine HCl (Atarax) 50 mg PRN TID PRN PO ANXIETY Last administered on 01/20 05:17; Start 12/31/16 at 07:30 Lorazepam (Ativan) 0.5 mg DAILY IM Last administered on 01/04/17 08:41; Start 12/31/16 at 08:30; Stop 01/04/17 at 18:32; Status DC Haloperidol Lactate (Haldol) 5 mg DAILY IM Last administered on 01/04/17 08:40 ; Start 12/31/16 at 08:30; Stop 01/04/17 at 18:32; Status DC Acetaminophen (Tylenol) 650 mg PRN Q4HRS PRN PO PAIN / TEMP Last administered on 01/16/17 06:16; Start 12/31/16 at 09:15 Bisacodyl (Dulcolax Tab) 10 mg PRN QHS PRN PO CONSTIPATION; Start 12/31/16 at 09:15 Diphenhydramine HCl (Benadryl) 25 mg PRN Q8HRS PRN PO RASH; Start 12/31/16 at 09:15 Senna/Docusate Sodium (Senna Plus) 1 tab PRN QHS PRN PO CONSTIPATION Last administered on 01/17/17 19:20; Start 12/31/16 at 09:15 Lisinopril (Prinivil) 40 mg DAILY PO Last administered on 01/20/17 08:24; Start 12/31/16 at 09:30 Vitamin D (Vitamin D3) 50,000 unit WEEKLY PO Last administered on 01/15/17 08: 53; Start 01/08/17 at 09:00; Stop 03/10/17 at 08:59 Escitalopram Oxalate (Lexapro) 10 mg DAILY PO Last administered on 01/20/17 08 :24; Start 01/04/17 at 09:00 Buspirone HCl (Buspar) 5 mg BID PO Last administered on 01/10/17 09:28; Start 01/09/17 at 21:00; Stop 01/10/17 at 18:33; Status DC Buspirone HCl (Buspar) 10 mg BID PO Last administered on 01/12/17 08:44; Start 01/10/17 at 21:00; Stop 01/12/17 at 14:01; Status DC Alprazolam (Xanax) 0.25 mg QID PO Last administered on 01/20/17 20:01; Start 01/12/17 at 17:00 Buspirone HCl (Buspar) 10 mg TID PO Last administered on 01/20/17 20:00; Start 01/12/17 at 14:00 Alprazolam (Xanax) 0.25 mg 1X ONCE PO Last administered on 01/12/17 14:47; Start 01/12/17 at 14:30; Stop 01/12/17 at 14:31; Status DC Quetiapine Fumarate (SEROquel) 25 mg DAILY@14 PO Last administered on 01/16/17 14:58; Start 01/14/17 at 14:00; Stop 01/16/17 at 18:25; Status DC Quetiapine Fumarate (SEROquel) 37.5 mg BID@,21 PO Last administered on 08:42; Start 01/13/17 at 21:00; Stop 01/17/17 at 18:29; Status DC Ondansetron HCl (Zofran Odt) 4 mg PRN Q4HRS PRN PO NAUSEA/VOMITING Last administered on 01/16/17 09:38; Start 01/16/17 at 09:00 Quetiapine Fumarate (SEROquel) 25 mg DAILY@15 PO Last administered on 14:01; Start 01/17/17 at 15:00; Stop 01/17/17 at 18:29; Status DC Lorazepam (Ativan) 0.5 mg DAILY IV ; Start 01/17/17 at 11:00; Stop 01/17/17 at 11:20; Status DC Lorazepam (Ativan) 0.5 mg DAILY IM Last administered on 01/20/17 08:29; Start 01/17/17 at 11:00 Risperidone (Risperdal) 0.25 mg BID92 PO Last administered on 01/20/17 13:15; Start 01/18/17 at 09:00 Cefpodoxime Proxetil (Vantin) 200 mg BID PO Last administered on 01/20/17 08: 25; Start 01/18/17 at 12:30; Stop 01/20/17 at 17:34; Status DC Active Scripts Active Reported Senna S Tablet (Sennosides/Docusate Sodium) 1 Each Tablet 1 Tab PO PRN QHS PRN Tylenol (Acetaminophen) 325 Mg Tablet 650 Mg PO PRN Q4HRS PRN Lorazepam 0.5 Mg Tablet 0.5 Mg PO PRN Q4HRS PRN Bisacodyl 5 Mg Tablet.dr 10 Mg PO PRN QHS PRN Diphenhydramine Hcl 25 Mg Tablet 25 Mg PO PRN QHS PRN Temazepam 15 Mg Capsule 15 Mg PO PRN QHS PRN Depakote Sprinkle (Divalproex Sodium) 125 Mg Cap.sprink 250 Mg PO BID Benadryl (Diphenhydramine Hcl) 25 Mg Capsule 25 Mg PO PRN Q8HRS PRN Seroquel (Quetiapine Fumarate) 25 Mg Tablet 25 Mg PO TID Alprazolam 0.5 Mg Tablet 0.5 Mg PO TID Aricept (Donepezil Hcl) 10 Mg Tablet 10 Mg PO QHS Paroxetine Hcl 20 Mg Tablet 20 Mg PO DAILY Lisinopril 40 Mg Tablet 40 Mg PO DAILY Diagnosis: Problems: (1) Dementia with behavioral disturbance (2) Anxiety disorder (3) Dementia in Alzheimer's disease with delusions (4) Dementia in Alzheimer's disease with depression (5) Dementia, vascular, with delusions (6) Dementia, vascular, with depression (7) Impulse control disorder TIFFANIE SCOTT MD Jan 20, 2017 21:06
[2017-01-21 06:32] VITALS: BP 153/77
[2017-01-21] MEDS: LISINOPRIL 20 MG TABLET PO SCH (09:00)
[2017-01-21] MEDS: risperiDONE 0.25 MG TABLET. PO SCH ×2 (09:06→13:36)
[2017-01-21] MEDS: ESCITALOPRAM 10 MG TABLET. PO SCH (09:06)
[2017-01-21] MEDS: busPIRone 10 MG TABLET. PO SCH ×4 (09:06→20:38)
[2017-01-21] MEDS: DIVALPROEX 125 MG CAP.SPRINK PO SCH ×2 (09:07→20:30)
[2017-01-21] MEDS: ALPRAZOLAM 0.25 MG TABLET PO SCH ×3 (09:10→16:36)
[2017-01-21] MEDS: LORAZEPAM 2 MG/ML VIAL IM SCH (09:10)
[2017-01-21 15:54] VITALS: BP 134/76
--- NOTE | 2017-01-21 20:07 | PDOC ---
Exam Ab Demential Exam: Ab Note: Please also refer to the separate dictated note~for this date of service dictated separately.~Patient seen individually. Discussed the patient with Nursing staff reviewed the chart.~Reviewed interim history and current functioning. Reviewed vital signs,~Labs/ Radiology~and current medications noted below. Continue current treatment with the changes noted in the dictated addendum note Assessment: Vital Signs: Vital Signs Date Time Temp Pulse Resp B/P Pulse Ox O2 Delivery O2 Flow Rate FiO2 01/21/17 15:54 96.8 70 16 134/76 95 01/18/17 06:19 Room Air I&O Intake and Output 01/21/17 07:00 Intake Total 840 ml Balance 840 ml Intake Oral 840 ml Current Medications: Meds: Current Medications Trimethoprim/ Sulfamethoxazole (Bactrim Ds) 1 tab 1X ONCE PO Last administered on 12/31/16 00:02; Start 12/30/16 at 23:55; Stop 12/30/16 at 23:56 ; Status DC Multi-Ingredient Ointment (Analgesic [place]) 1 jazlyn PRN QID PRN TP MUSCLE PAIN; Start 12/31/16 at 00:00 Al Hydroxide/Mg Hydroxide (Mylanta Plus Xs) 15 ml PRN AFTMEALHC PRN PO DYSPEPSIA; Start 12/31/16 at 00:00 Magnesium Hydroxide (Milk Of Magnesia) 2,400 mg PRN QHS PRN PO CONSTIPATION; Start 12/31/16 at 00:00 Alprazolam (Xanax) 0.5 mg TID PO Last administered on 01/12/17 08:46; Start at 09:00; Stop 01/12/17 at 14:01; Status DC Divalproex Sodium (Depakote Sprinkles) 250 mg BID PO Last administered on 09:07; Start 12/31/16 at 09:00 Donepezil HCl (Aricept) 10 mg QHS PO Last administered on 01/20/17 20:00; Start 12/31/16 at 21:00 Lorazepam (Ativan) 0.5 mg PRN Q4HRS PRN PO ANXIETY / AGITATION Last administered on 12/31/16 05:50; Start 12/31/16 at 00:00; Stop 12/31/16 at 06:19 ; Status DC Paroxetine HCl (Paxil) 20 mg DAILY PO Last administered on 01/03/17 08:27; Start 12/31/16 at 09:00; Stop 01/03/17 at 13:07; Status DC Quetiapine Fumarate (SEROquel) 25 mg TID PO Last administered on 01/13/17 14:11 ; Start 12/31/16 at 09:00; Stop 01/13/17 at 18:06; Status DC Temazepam (Restoril) 15 mg PRN QHS PRN PO INSOMNIA; Start 12/31/16 at 00:00 Olanzapine (Zyprexa Zydis) 2.5 mg PRN Q2HR PRN PO PSYCHOSIS Last administered on 01/14/17 14:33; Start 12/31/16 at 06:30 Hydroxyzine HCl (Atarax) 50 mg PRN TID PRN PO ANXIETY Last administered on 01/20 05:17; Start 12/31/16 at 07:30 Lorazepam (Ativan) 0.5 mg DAILY IM Last administered on 01/04/17 08:41; Start 12/31/16 at 08:30; Stop 01/04/17 at 18:32; Status DC Haloperidol Lactate (Haldol) 5 mg DAILY IM Last administered on 01/04/17 08:40 ; Start 12/31/16 at 08:30; Stop 01/04/17 at 18:32; Status DC Acetaminophen (Tylenol) 650 mg PRN Q4HRS PRN PO PAIN / TEMP Last administered on 01/16/17 06:16; Start 12/31/16 at 09:15 Bisacodyl (Dulcolax Tab) 10 mg PRN QHS PRN PO CONSTIPATION; Start 12/31/16 at 09:15 Diphenhydramine HCl (Benadryl) 25 mg PRN Q8HRS PRN PO RASH; Start 12/31/16 at 09:15 Senna/Docusate Sodium (Senna Plus) 1 tab PRN QHS PRN PO CONSTIPATION Last administered on 01/17/17 19:20; Start 12/31/16 at 09:15 Lisinopril (Prinivil) 40 mg DAILY PO Last administered on 01/21/17 09:00; Start 12/31/16 at 09:30 Vitamin D (Vitamin D3) 50,000 unit WEEKLY PO Last administered on 01/15/17 08: 53; Start 01/08/17 at 09:00; Stop 03/10/17 at 08:59 Escitalopram Oxalate (Lexapro) 10 mg DAILY PO Last administered on 01/21/17 09 :06; Start 01/04/17 at 09:00 Buspirone HCl (Buspar) 5 mg BID PO Last administered on 01/10/17 09:28; Start 01/09/17 at 21:00; Stop 01/10/17 at 18:33; Status DC Buspirone HCl (Buspar) 10 mg BID PO Last administered on 01/12/17 08:44; Start 01/10/17 at 21:00; Stop 01/12/17 at 14:01; Status DC Alprazolam (Xanax) 0.25 mg QID PO Last administered on 01/21/17 16:36; Start 01/12/17 at 17:00; Stop 01/21/17 at 18:51; Status DC Buspirone HCl (Buspar) 10 mg TID PO Last administered on 01/21/17 13:36; Start 01/12/17 at 14:00 Alprazolam (Xanax) 0.25 mg 1X ONCE PO Last administered on 01/12/17 14:47; Start 01/12/17 at 14:30; Stop 01/12/17 at 14:31; Status DC Quetiapine Fumarate (SEROquel) 25 mg DAILY@14 PO Last administered on 01/16/17 14:58; Start 01/14/17 at 14:00; Stop 01/16/17 at 18:25; Status DC Quetiapine Fumarate (SEROquel) 37.5 mg BID@ PO Last administered on 08:42; Start 01/13/17 at 21:00; Stop 01/17/17 at 18:29; Status DC Ondansetron HCl (Zofran Odt) 4 mg PRN Q4HRS PRN PO NAUSEA/VOMITING Last administered on 01/16/17 09:38; Start 01/16/17 at 09:00 Quetiapine Fumarate (SEROquel) 25 mg DAILY@15 PO Last administered on 14:01; Start 01/17/17 at 15:00; Stop 01/17/17 at 18:29; Status DC Lorazepam (Ativan) 0.5 mg DAILY IV ; Start 01/17/17 at 11:00; Stop 01/17/17 at 11:20; Status DC Lorazepam (Ativan) 0.5 mg DAILY IM Last administered on 01/21/17 09:10; Start 01/17/17 at 11:00; Stop 01/21/17 at 18:36; Status DC Risperidone (Risperdal) 0.25 mg [id number] PO Last administered on 01/21/17 13:36; Start 01/18/17 at 09:00 Cefpodoxime Proxetil (Vantin) 200 mg BID PO Last administered on 01/20/17 08: 25; Start 01/18/17 at 12:30; Stop 01/20/17 at 17:34; Status DC Alprazolam (Xanax) 0.25 mg QID PO ; Start 01/21/17 at 21:00; Stop 01/21/17 at 22 :00 Alprazolam (Xanax) 0.25 mg [id number] PO ; Start 01/22/17 at 09:00; Stop 01/23/17 at 22:00 Alprazolam (Xanax) 0.25 mg BID PO ; Start 01/24/17 at 09:00; Stop 01/25/17 at 22 :00 Alprazolam (Xanax) 0.25 mg DAILY PO ; Start 01/26/17 at 09:00; Stop 01/26/17 at 20:00 Active Scripts Active Reported Senna S Tablet (Sennosides/Docusate Sodium) 1 Each Tablet 1 Tab PO PRN QHS PRN Tylenol (Acetaminophen) 325 Mg Tablet 650 Mg PO PRN Q4HRS PRN Lorazepam 0.5 Mg Tablet 0.5 Mg PO PRN Q4HRS PRN Bisacodyl 5 Mg Tablet.dr 10 Mg PO PRN QHS PRN Diphenhydramine Hcl 25 Mg Tablet 25 Mg PO PRN QHS PRN Temazepam 15 Mg Capsule 15 Mg PO PRN QHS PRN Depakote Sprinkle (Divalproex Sodium) 125 Mg Cap.sprink 250 Mg PO BID Benadryl (Diphenhydramine Hcl) 25 Mg Capsule 25 Mg PO PRN Q8HRS PRN Seroquel (Quetiapine Fumarate) 25 Mg Tablet 25 Mg PO TID Alprazolam 0.5 Mg Tablet 0.5 Mg PO TID Aricept (Donepezil Hcl) 10 Mg Tablet 10 Mg PO QHS Paroxetine Hcl 20 Mg Tablet 20 Mg PO DAILY Lisinopril 40 Mg Tablet 40 Mg PO DAILY Diagnosis: Problems: (1) Dementia with behavioral disturbance (2) Anxiety disorder (3) Dementia in Alzheimer's disease with delusions (4) Dementia in Alzheimer's disease with depression (5) Dementia, vascular, with delusions (6) Dementia, vascular, with depression (7) Impulse control disorder TIFFANIE SCOTT MD Jan 21, 2017 20:07
[2017-01-21] MEDS: DONEPEZIL HCL 10 MG TABLET PO SCH (20:30)
[2017-01-21] MEDS ORDERED: ALPRAZOLAM 0.25 MG TABLET PO SCH (21:00)
--- NOTE | 2017-01-22 01:53 | PN ---
DATE: 01/20/2017 PSYCHIATRIC PROGRESS NOTE This is a late entry for 01/20/2017 and covers elements not covered in my initial note. SUBJECTIVE: The patient was staffed at a treatment team meeting with the entire team and seen individually. Per nursing report, the patient is compliant with her medications, less agitated. Vantin was discontinued since urine C and S was negative. The patient was also staffed at a treatment team meeting with the entire team with the patient's daughter, Day, attending. We had a lengthy discussion about her diagnosis, current medications, placement options, discharge plans and past history. REVIEW OF SYSTEMS: Ambulation impaired. No CV, , pulmonary, eye system symptoms on review. MENTAL STATUS EXAM: Oriented to herself, at times to situation. Insight, judgment, recent memory is impaired. Language function intact. Attention span short. Mood and affect of lability is improved. LABORATORY DATA: Reviewed. IMPRESSION: Major neurocognitive disorder, Alzheimer, vascular with depression, delusion, behavioral disturbance. Rest unchanged. PLAN: Continue psychotropics mentioned in my initial note. These include BuSpar 10 mg 3 times a day, Aricept 10 mg a day, Risperdal 0.25 mg b.i.d., Depakote 250 b.i.d., Xanax 0.25 mg q.i.d., Restoril p.r.n., Benadryl p.r.n., Zyprexa p.r.n., hydroxyzine p.r.n., Lexapro 10 mg a day, Ativan 0.5 mg IM daily, which we may be able to stop in a day or two. MAN Matt SCOTT MD DR: ALE/amina JOB#: [id number] / [id number]
--- NOTE | 2017-01-22 02:52 | PN ---
DATE: 01/19/2017 PSYCHIATRIC PROGRESS NOTE This is late entry of 01/19/2017, covers elements not covered in my initial note. SUBJECTIVE: The patient was extremely agitated morning of 01/19/2017. Nursing staff had called me as a stat emergency. She threw water at the nursing staff, spit meds all over the nursing staff, punching yet another nursing staff, throwing chairs at the doors, agitated, disruptive, aggressive, potentially dangerous. Daughter talked to the patient on the telephone with some help, refusing all medications and we started scheduled IM Ativan and she did a little better. Additionally, UAs probably reflective of a UTI, could be worsening her agitation and is on antibiotics for this. REVIEW OF SYSTEMS: Ambulation impaired. No CV, , pulmonary, eye, ENT system symptoms on review. MENTAL STATUS EXAMINATION: Oriented to herself. Insight, judgment, recent and remote memory, attention, concentration, fund of knowledge poor, consistent with her diagnosis. LABORATORY DATA: Reviewed. IMPRESSION: Major neurocognitive disorder, Alzheimer, vascular with depression, delusion, behavioral disturbance; anxiety disorder, unspecified; impulse control disorder, unspecified. PLAN: Continue Aricept, BuSpar, Risperdal, Depakote along with Xanax, Restoril, Benadryl and Zyprexa p.r.n., hydroxyzine p.r.n., Lexapro 10 mg a day, scheduled Ativan, which we may be able to discontinue in a day or 2, treat the UTI, adjust further as clinically indicated. TIFFANIE SCOTT MD DR: ALE/amina JOB#: [id number] / [id number]
[2017-01-22 06:38] VITALS: BP 148/72
[2017-01-22] MEDS: DIVALPROEX 125 MG CAP.SPRINK PO SCH ×2 (09:38→20:03)
[2017-01-22] MEDS: LISINOPRIL 20 MG TABLET PO SCH (09:38)
[2017-01-22] MEDS: risperiDONE 0.25 MG TABLET. PO SCH ×2 (09:38→14:01)
[2017-01-22] MEDS: ESCITALOPRAM 10 MG TABLET. PO SCH (09:39)
[2017-01-22] MEDS: ALPRAZOLAM 0.25 MG TABLET PO SCH ×3 (09:39→20:04)
[2017-01-22] MEDS: busPIRone 10 MG TABLET. PO SCH ×3 (09:39→20:03)
[2017-01-22] MEDS: CHOLECALCIFEROL (VITAMIN D3) 50,000 UNIT CAPSULE PO SCH (09:41)
[2017-01-22 15:57] VITALS: BP 120/81
[2017-01-22] MEDS: DONEPEZIL HCL 10 MG TABLET PO SCH (20:03)
[2017-01-22] MEDS: TEMAZEPAM 15 MG CAPSULE PO PRN (20:47)
--- NOTE | 2017-01-22 22:04 | PDOC ---
Exam Ab Demential Exam: Ab Note: Please also refer to the separate dictated note~for this date of service dictated separately.~Patient seen individually. Discussed the patient with Nursing staff reviewed the chart.~Reviewed interim history and current functioning. Reviewed vital signs,~Labs/ Radiology~and current medications noted below. Continue current treatment with the changes noted in the dictated addendum note Assessment: Vital Signs: Vital Signs Date Time Temp Pulse Resp B/P Pulse Ox O2 Delivery O2 Flow Rate FiO2 01/22/17 15:57 98.1 99 16 120/81 93 Room Air I&O Intake and Output 01/22/17 07:00 Intake Total 240 ml Balance 240 ml Intake Oral 240 ml Current Medications: Meds: Current Medications Trimethoprim/ Sulfamethoxazole (Bactrim Ds) 1 tab 1X ONCE PO Last administered on 12/31/16 00:02; Start 12/30/16 at 23:55; Stop 12/30/16 at 23:56 ; Status DC Multi-Ingredient Ointment (Analgesic [place]) 1 jazlyn PRN QID PRN TP MUSCLE PAIN; Start 12/31/16 at 00:00 Al Hydroxide/Mg Hydroxide (Mylanta Plus Xs) 15 ml PRN AFTMEALHC PRN PO DYSPEPSIA; Start 12/31/16 at 00:00 Magnesium Hydroxide (Milk Of Magnesia) 2,400 mg PRN QHS PRN PO CONSTIPATION; Start 12/31/16 at 00:00 Alprazolam (Xanax) 0.5 mg TID PO Last administered on 01/12/17 08:46; Start at 09:00; Stop 01/12/17 at 14:01; Status DC Divalproex Sodium (Depakote Sprinkles) 250 mg BID PO Last administered on 20:03; Start 12/31/16 at 09:00 Donepezil HCl (Aricept) 10 mg QHS PO Last administered on 01/22/17 20:03; Start 12/31/16 at 21:00 Lorazepam (Ativan) 0.5 mg PRN Q4HRS PRN PO ANXIETY / AGITATION Last administered on 12/31/16 05:50; Start 12/31/16 at 00:00; Stop 12/31/16 at 06:19 ; Status DC Paroxetine HCl (Paxil) 20 mg DAILY PO Last administered on 01/03/17 08:27; Start 12/31/16 at 09:00; Stop 01/03/17 at 13:07; Status DC Quetiapine Fumarate (SEROquel) 25 mg TID PO Last administered on 01/13/17 14:11 ; Start 12/31/16 at 09:00; Stop 01/13/17 at 18:06; Status DC Temazepam (Restoril) 15 mg PRN QHS PRN PO INSOMNIA Last administered on 20:47; Start 12/31/16 at 00:00 Olanzapine (Zyprexa Zydis) 2.5 mg PRN Q2HR PRN PO PSYCHOSIS Last administered on 01/14/17 14:33; Start 12/31/16 at 06:30 Hydroxyzine HCl (Atarax) 50 mg PRN TID PRN PO ANXIETY Last administered on 01/20 05:17; Start 12/31/16 at 07:30 Lorazepam (Ativan) 0.5 mg DAILY IM Last administered on 01/04/17 08:41; Start 12/31/16 at 08:30; Stop 01/04/17 at 18:32; Status DC Haloperidol Lactate (Haldol) 5 mg DAILY IM Last administered on 01/04/17 08:40 ; Start 12/31/16 at 08:30; Stop 01/04/17 at 18:32; Status DC Acetaminophen (Tylenol) 650 mg PRN Q4HRS PRN PO PAIN / TEMP Last administered on 01/16/17 06:16; Start 12/31/16 at 09:15 Bisacodyl (Dulcolax Tab) 10 mg PRN QHS PRN PO CONSTIPATION; Start 12/31/16 at 09:15 Diphenhydramine HCl (Benadryl) 25 mg PRN Q8HRS PRN PO RASH; Start 12/31/16 at 09:15 Senna/Docusate Sodium (Senna Plus) 1 tab PRN QHS PRN PO CONSTIPATION Last administered on 01/17/17 19:20; Start 12/31/16 at 09:15 Lisinopril (Prinivil) 40 mg DAILY PO Last administered on 01/22/17 09:38; Start 12/31/16 at 09:30 Vitamin D (Vitamin D3) 50,000 unit WEEKLY PO Last administered on 01/22/17 09: 41; Start 01/08/17 at 09:00; Stop 03/10/17 at 08:59 Escitalopram Oxalate (Lexapro) 10 mg DAILY PO Last administered on 01/22/17 09 :39; Start 01/04/17 at 09:00 Buspirone HCl (Buspar) 5 mg BID PO Last administered on 01/10/17 09:28; Start 01/09/17 at 21:00; Stop 01/10/17 at 18:33; Status DC Buspirone HCl (Buspar) 10 mg BID PO Last administered on 01/12/17 08:44; Start 01/10/17 at 21:00; Stop 01/12/17 at 14:01; Status DC Alprazolam (Xanax) 0.25 mg QID PO Last administered on 01/21/17 16:36; Start 01/12/17 at 17:00; Stop 01/21/17 at 18:51; Status DC Buspirone HCl (Buspar) 10 mg TID PO Last administered on 01/22/17 20:03; Start 01/12/17 at 14:00 Alprazolam (Xanax) 0.25 mg 1X ONCE PO Last administered on 01/12/17 14:47; Start 01/12/17 at 14:30; Stop 01/12/17 at 14:31; Status DC Quetiapine Fumarate (SEROquel) 25 mg DAILY@14 PO Last administered on 01/16/17 14:58; Start 01/14/17 at 14:00; Stop 01/16/17 at 18:25; Status DC Quetiapine Fumarate (SEROquel) 37.5 mg BID@ PO Last administered on 08:42; Start 01/13/17 at 21:00; Stop 01/17/17 at 18:29; Status DC Ondansetron HCl (Zofran Odt) 4 mg PRN Q4HRS PRN PO NAUSEA/VOMITING Last administered on 01/16/17 09:38; Start 01/16/17 at 09:00 Quetiapine Fumarate (SEROquel) 25 mg DAILY@15 PO Last administered on 14:01; Start 01/17/17 at 15:00; Stop 01/17/17 at 18:29; Status DC Lorazepam (Ativan) 0.5 mg DAILY IV ; Start 01/17/17 at 11:00; Stop 01/17/17 at 11:20; Status DC Lorazepam (Ativan) 0.5 mg DAILY IM Last administered on 01/21/17 09:10; Start 01/17/17 at 11:00; Stop 01/21/17 at 18:36; Status DC Risperidone (Risperdal) 0.25 mg [id number] PO Last administered on 01/22/17 14:01; Start 01/18/17 at 09:00 Cefpodoxime Proxetil (Vantin) 200 mg BID PO Last administered on 01/20/17 08: 25; Start 01/18/17 at 12:30; Stop 01/20/17 at 17:34; Status DC Alprazolam (Xanax) 0.25 mg QID PO Last administered on 01/21/17 20:31; Start 01/21/17 at 21:00; Stop 01/21/17 at 22:00; Status DC Alprazolam (Xanax) 0.25 mg [id number] PO Last administered on 01/22/17 20:04; Start 01/22/17 at 09:00; Stop 01/23/17 at 22:00 Alprazolam (Xanax) 0.25 mg BID PO ; Start 01/24/17 at 09:00; Stop 01/25/17 at 22 :00 Alprazolam (Xanax) 0.25 mg DAILY PO ; Start 01/26/17 at 09:00; Stop 01/26/17 at 20:00 Active Scripts Active Reported Senna S Tablet (Sennosides/Docusate Sodium) 1 Each Tablet 1 Tab PO PRN QHS PRN Tylenol (Acetaminophen) 325 Mg Tablet 650 Mg PO PRN Q4HRS PRN Lorazepam 0.5 Mg Tablet 0.5 Mg PO PRN Q4HRS PRN Bisacodyl 5 Mg Tablet.dr 10 Mg PO PRN QHS PRN Diphenhydramine Hcl 25 Mg Tablet 25 Mg PO PRN QHS PRN Temazepam 15 Mg Capsule 15 Mg PO PRN QHS PRN Depakote Sprinkle (Divalproex Sodium) 125 Mg Cap.sprink 250 Mg PO BID Benadryl (Diphenhydramine Hcl) 25 Mg Capsule 25 Mg PO PRN Q8HRS PRN Seroquel (Quetiapine Fumarate) 25 Mg Tablet 25 Mg PO TID Alprazolam 0.5 Mg Tablet 0.5 Mg PO TID Aricept (Donepezil Hcl) 10 Mg Tablet 10 Mg PO QHS Paroxetine Hcl 20 Mg Tablet 20 Mg PO DAILY Lisinopril 40 Mg Tablet 40 Mg PO DAILY Diagnosis: Problems: (1) Impulse control disorder (2) Dementia, vascular, with depression (3) Dementia, vascular, with delusions (4) Dementia in Alzheimer's disease with depression (5) Dementia in Alzheimer's disease with delusions (6) Anxiety disorder (7) Dementia with behavioral disturbance TIFFANIE SCOTT MD Jan 22, 2017 22:04
[2017-01-23 06:16] VITALS: BP 119/74
[2017-01-23 08:19] LABS: BASO # 0.1 x10^3/uL (0.0-0.2); BASO % 1 % (0-3); EOS # 0.2 x10^3/uL (0.0-0.7); EOS % 3 % (0-3); HEMOGLOBIN 12.8 g/dL (12.0-15.5); LYMPH # 2.2 x10^3/uL (1.0-4.8); LYMPH % 26 % (24-48); MEAN CORPUSCULAR HEMOGLOBIN 29 pg (25-35); MEAN CORPUSCULAR HGB CONC 33 g/dL (31-37); MEAN CORPUSCULAR VOLUME 87 fL (79-100); MONO # 0.7 x10^3/uL (0.0-1.1); MONO % 8 % (0-9); NEUT # 5.2 x10^3uL (1.8-7.7); NEUT % 62 % (31-73); PLATELET COUNT 237 x10^3/uL (140-400); RED BLOOD COUNT 4.49 x10^6/uL (3.50-5.40); RED CELL DISTRIBUTION WIDTH 15.4 % (11.5-14.5); WHITE BLOOD COUNT 8.3 x10^3/uL (4.0-11.0)
[2017-01-23 08:35] LABS: ALBUMIN 3.3 g/dL (3.4-5.0); ALBUMIN/GLOBULIN RATIO 0.8 (1.0-1.7); ALK PHOS 87 U/L (46-116); ALT (SGPT) 23 U/L (14-59); ANION GAP 8 (6-14); AST (SGOT) 22 U/L (15-37); BLOOD UREA NITROGEN 17 mg/dL (7-20); BUN/CREATININE RATIO 24 (6-20); CALCIUM 8.7 mg/dL (8.5-10.1); CARBON DIOXIDE 31 mmol/L (21-32); CHLORIDE 102 mmol/L (98-107); CREATININE 0.7 mg/dL (0.6-1.0); GFR 79.5; GLUCOSE 84 mg/dL (70-99); MAGNESIUM 2.1 mg/dL (1.8-2.4); SODIUM 141 mmol/L (136-145); TOTAL BILIRUBIN 0.5 mg/dL (0.2-1.0); TOTAL PROTEIN 7.2 g/dL (6.4-8.2)
[2017-01-23 08:40] LABS: VAL ACID 44 mcg/mL (50-100)
[2017-01-23] MEDS: risperiDONE 0.25 MG TABLET. PO SCH ×2 (08:42→14:08)
[2017-01-23] MEDS: DIVALPROEX 125 MG CAP.SPRINK PO SCH ×2 (08:43→19:30)
[2017-01-23] MEDS: ESCITALOPRAM 10 MG TABLET. PO SCH (08:43)
[2017-01-23] MEDS: busPIRone 10 MG TABLET. PO SCH ×3 (08:43→19:30)
[2017-01-23] MEDS: LISINOPRIL 20 MG TABLET PO SCH (08:43)
[2017-01-23] MEDS: ALPRAZOLAM 0.25 MG TABLET PO SCH ×3 (08:45→19:33)
[2017-01-23] MEDS: HYDROXYZINE HCL 25 MG TABLET PO PRN (11:27)
[2017-01-23 16:12] VITALS: BP 134/75
[2017-01-23] MEDS: DONEPEZIL HCL 10 MG TABLET PO SCH (19:30)
[2017-01-23] MEDS: OLANZAPINE ZYDIS 5 MG TAB.RAPDIS PO PRN (19:34)
--- NOTE | 2017-01-23 21:26 | PDOC ---
Exam Ab Demential Exam: Ab Note: Please also refer to the separate dictated note~for this date of service dictated separately.~Patient seen individually. Discussed the patient with Nursing staff reviewed the chart.~Reviewed interim history and current functioning. Reviewed vital signs,~Labs/ Radiology~and current medications noted below. Continue current treatment with the changes noted in the dictated addendum note Assessment: Vital Signs: Vital Signs Date Time Temp Pulse Resp B/P Pulse Ox O2 Delivery O2 Flow Rate FiO2 01/23/17 16:12 97.8 86 18 134/75 95 01/23/17 06:16 Room Air I&O Intake and Output 01/23/17 07:00 Intake Total 600 ml Balance 600 ml Intake Oral 600 ml Labs: Laboratory Tests Test 01/23/17 08:09 White Blood Count 8.3x10^3/uL (4.0-11.0) Red Blood Count 4.49x10^6/uL (3.50-5.40) Hemoglobin 12.8g/dL (12.0-15.5) Hematocrit 39.0% (36.0-47.0) Mean Corpuscular Volume 87fL (79-100) Mean Corpuscular Hemoglobin 29pg (25-35) Mean Corpuscular Hemoglobin Concent 33g/dL (31-37) Red Cell Distribution Width 15.4% (11.5-14.5) H Platelet Count 237x10^3/uL (140-400) Neutrophils (%) (Auto) 62% (31-73) Lymphocytes (%) (Auto) 26% (24-48) Monocytes (%) (Auto) 8% (0-9) Eosinophils (%) (Auto) 3% (0-3) Basophils (%) (Auto) 1% (0-3) Neutrophils # (Auto) 5.2x10^3uL (1.8-7.7) Lymphocytes # (Auto) 2.2x10^3/uL (1.0-4.8) Monocytes # (Auto) 0.7x10^3/uL (0.0-1.1) Eosinophils # (Auto) 0.2x10^3/uL (0.0-0.7) Basophils # (Auto) 0.1x10^3/uL (0.0-0.2) Sodium Level 141mmol/L (136-145) Potassium Level 4.0mmol/L (3.5-5.1) Chloride Level 102mmol/L (98-107) Carbon Dioxide Level 31mmol/L (21-32) Anion Gap 8 (6-14) Blood Urea Nitrogen 17mg/dL (7-20) Creatinine 0.7mg/dL (0.6-1.0) Estimated GFR (Cockcroft-Gault) 79.5 BUN/Creatinine Ratio 24 (6-20) H Glucose Level 84mg/dL (70-99) Calcium Level 8.7mg/dL (8.5-10.1) Magnesium Level 2.1mg/dL (1.8-2.4) Total Bilirubin 0.5mg/dL (0.2-1.0) Aspartate Amino Transferase (AST) 22U/L (15-37) Alanine Aminotransferase (ALT) 23U/L (14-59) Alkaline Phosphatase 87U/L (46-116) Total Protein 7.2g/dL (6.4-8.2) Albumin 3.3g/dL (3.4-5.0) L Albumin/Globulin Ratio 0.8 (1.0-1.7) L Valproic Acid Level 44mcg/mL (50-100) L Valproic Acid Last Dose Date 01/22/17 Valproic Acid Last Dose Time 2100 Current Medications: Meds: Current Medications Trimethoprim/ Sulfamethoxazole (Bactrim Ds) 1 tab 1X ONCE PO Last administered on 12/31/16 00:02; Start 12/30/16 at 23:55; Stop 12/30/16 at 23:56 ; Status DC Multi-Ingredient Ointment (Analgesic [place]) 1 jazlyn PRN QID PRN TP MUSCLE PAIN; Start 12/31/16 at 00:00 Al Hydroxide/Mg Hydroxide (Mylanta Plus Xs) 15 ml PRN AFTMEALHC PRN PO DYSPEPSIA; Start 12/31/16 at 00:00 Magnesium Hydroxide (Milk Of Magnesia) 2,400 mg PRN QHS PRN PO CONSTIPATION; Start 12/31/16 at 00:00 Alprazolam (Xanax) 0.5 mg TID PO Last administered on 01/12/17 08:46; Start at 09:00; Stop 01/12/17 at 14:01; Status DC Divalproex Sodium (Depakote Sprinkles) 250 mg BID PO Last administered on 19:30; Start 12/31/16 at 09:00 Donepezil HCl (Aricept) 10 mg QHS PO Last administered on 01/23/17 19:30; Start 12/31/16 at 21:00 Lorazepam (Ativan) 0.5 mg PRN Q4HRS PRN PO ANXIETY / AGITATION Last administered on 12/31/16 05:50; Start 12/31/16 at 00:00; Stop 12/31/16 at 06:19 ; Status DC Paroxetine HCl (Paxil) 20 mg DAILY PO Last administered on 01/03/17 08:27; Start 12/31/16 at 09:00; Stop 01/03/17 at 13:07; Status DC Quetiapine Fumarate (SEROquel) 25 mg TID PO Last administered on 01/13/17 14:11 ; Start 12/31/16 at 09:00; Stop 01/13/17 at 18:06; Status DC Temazepam (Restoril) 15 mg PRN QHS PRN PO INSOMNIA Last administered on 20:47; Start 12/31/16 at 00:00 Olanzapine (Zyprexa Zydis) 2.5 mg PRN Q2HR PRN PO PSYCHOSIS Last administered on 01/23/17 19:34; Start 12/31/16 at 06:30 Hydroxyzine HCl (Atarax) 50 mg PRN TID PRN PO ANXIETY Last administered on 01/23 11:27; Start 12/31/16 at 07:30 Lorazepam (Ativan) 0.5 mg DAILY IM Last administered on 01/04/17 08:41; Start 12/31/16 at 08:30; Stop 01/04/17 at 18:32; Status DC Haloperidol Lactate (Haldol) 5 mg DAILY IM Last administered on 01/04/17 08:40 ; Start 12/31/16 at 08:30; Stop 01/04/17 at 18:32; Status DC Acetaminophen (Tylenol) 650 mg PRN Q4HRS PRN PO PAIN / TEMP Last administered on 01/16/17 06:16; Start 12/31/16 at 09:15 Bisacodyl (Dulcolax Tab) 10 mg PRN QHS PRN PO CONSTIPATION; Start 12/31/16 at 09:15 Diphenhydramine HCl (Benadryl) 25 mg PRN Q8HRS PRN PO RASH; Start 12/31/16 at 09:15 Senna/Docusate Sodium (Senna Plus) 1 tab PRN QHS PRN PO CONSTIPATION Last administered on 01/17/17 19:20; Start 12/31/16 at 09:15 Lisinopril (Prinivil) 40 mg DAILY PO Last administered on 01/23/17 08:43; Start 12/31/16 at 09:30 Vitamin D (Vitamin D3) 50,000 unit WEEKLY PO Last administered on 01/22/17 09: 41; Start 01/08/17 at 09:00; Stop 03/10/17 at 08:59 Escitalopram Oxalate (Lexapro) 10 mg DAILY PO Last administered on 01/23/17 08 :43; Start 01/04/17 at 09:00 Buspirone HCl (Buspar) 5 mg BID PO Last administered on 01/10/17 09:28; Start 01/09/17 at 21:00; Stop 01/10/17 at 18:33; Status DC Buspirone HCl (Buspar) 10 mg BID PO Last administered on 01/12/17 08:44; Start 01/10/17 at 21:00; Stop 01/12/17 at 14:01; Status DC Alprazolam (Xanax) 0.25 mg QID PO Last administered on 01/21/17 16:36; Start 01/12/17 at 17:00; Stop 01/21/17 at 18:51; Status DC Buspirone HCl (Buspar) 10 mg TID PO Last administered on 01/23/17 19:30; Start 01/12/17 at 14:00 Alprazolam (Xanax) 0.25 mg 1X ONCE PO Last administered on 01/12/17 14:47; Start 01/12/17 at 14:30; Stop 01/12/17 at 14:31; Status DC Quetiapine Fumarate (SEROquel) 25 mg DAILY@14 PO Last administered on 01/16/17 14:58; Start 01/14/17 at 14:00; Stop 01/16/17 at 18:25; Status DC Quetiapine Fumarate (SEROquel) 37.5 mg BID@09,21 PO Last administered on 08:42; Start 01/13/17 at 21:00; Stop 01/17/17 at 18:29; Status DC Ondansetron HCl (Zofran Odt) 4 mg PRN Q4HRS PRN PO NAUSEA/VOMITING Last administered on 01/16/17 09:38; Start 01/16/17 at 09:00 Quetiapine Fumarate (SEROquel) 25 mg DAILY@15 PO Last administered on 14:01; Start 01/17/17 at 15:00; Stop 01/17/17 at 18:29; Status DC Lorazepam (Ativan) 0.5 mg DAILY IV ; Start 01/17/17 at 11:00; Stop 01/17/17 at 11:20; Status DC Lorazepam (Ativan) 0.5 mg DAILY IM Last administered on 01/21/17 09:10; Start 01/17/17 at 11:00; Stop 01/21/17 at 18:36; Status DC Risperidone (Risperdal) 0.25 mg [id number] PO Last administered on 01/23/17 14:08; Start 01/18/17 at 09:00 Cefpodoxime Proxetil (Vantin) 200 mg BID PO Last administered on 01/20/17 08: 25; Start 01/18/17 at 12:30; Stop 01/20/17 at 17:34; Status DC Alprazolam (Xanax) 0.25 mg QID PO Last administered on 01/21/17 20:31; Start 01/21/17 at 21:00; Stop 01/21/17 at 22:00; Status DC Alprazolam (Xanax) 0.25 mg [id number] PO Last administered on 01/23/17 19:33; Start 01/22/17 at 09:00; Stop 01/23/17 at 22:00 Alprazolam (Xanax) 0.25 mg BID PO ; Start 01/24/17 at 09:00; Stop 01/25/17 at 22 :00 Alprazolam (Xanax) 0.25 mg DAILY PO ; Start 01/26/17 at 09:00; Stop 01/26/17 at 20:00 Active Scripts Active Reported Senna S Tablet (Sennosides/Docusate Sodium) 1 Each Tablet 1 Tab PO PRN QHS PRN Tylenol (Acetaminophen) 325 Mg Tablet 650 Mg PO PRN Q4HRS PRN Lorazepam 0.5 Mg Tablet 0.5 Mg PO PRN Q4HRS PRN Bisacodyl 5 Mg Tablet.dr 10 Mg PO PRN QHS PRN Diphenhydramine Hcl 25 Mg Tablet 25 Mg PO PRN QHS PRN Temazepam 15 Mg Capsule 15 Mg PO PRN QHS PRN Depakote Sprinkle (Divalproex Sodium) 125 Mg Cap.sprink 250 Mg PO BID Benadryl (Diphenhydramine Hcl) 25 Mg Capsule 25 Mg PO PRN Q8HRS PRN Seroquel (Quetiapine Fumarate) 25 Mg Tablet 25 Mg PO TID Alprazolam 0.5 Mg Tablet 0.5 Mg PO TID Aricept (Donepezil Hcl) 10 Mg Tablet 10 Mg PO QHS Paroxetine Hcl 20 Mg Tablet 20 Mg PO DAILY Lisinopril 40 Mg Tablet 40 Mg PO DAILY Diagnosis: Problems: (1) Dementia with behavioral disturbance (2) Anxiety disorder (3) Dementia in Alzheimer's disease with delusions (4) Dementia in Alzheimer's disease with depression (5) Dementia, vascular, with delusions (6) Dementia, vascular, with depression (7) Impulse control disorder TIFFANIE SCOTT MD Jan 23, 2017 21:26
--- NOTE | 2017-01-23 21:38 | PN ---
DATE: 01/21/2017 PSYCHIATRIC PROGRESS NOTE This is a late entry for 01/21/2017, covers elements not covered in my initial note. SUBJECTIVE: The patient was somewhat overly sedated during the day, 1 p.m. Xanax was held. She slept 8-1/2 hours previous night and remains confused and anxious. REVIEW OF SYSTEMS: Ambulation impaired with a walker. No CV, , pulmonary, eye system symptoms on review. MENTAL STATUS EXAM: Oriented to herself and at times to situation. Insight, judgment, recent memory is impaired. Remote is better. Language function intact. Attention span short. Mood and affect are improved, slept 8-1/2 hours previous night. LABORATORY DATA: Reviewed. IMPRESSION: Unchanged from initial note. PLAN: Taper and stop the Xanax. Continue Aricept, Risperdal, Depakote, Restoril p.r.n., Benadryl p.r.n. Discontinue the Ativan IM daily. Adjust further as clinically indicated. She is also on Lexapro 10 mg a day. TIFFANIE SCOTT MD DR: ALE/amina JOB#: [id number] / [id number]
--- NOTE | 2017-01-23 22:07 | PN ---
DATE: 01/22/2017 This late entry 01/22/2017 covers elements not covered in my initial note. SUBJECTIVE: Per nursing report, the patient is cooperative with the assessment, resistive with meds, does not take them all, but better than before. I met with her in her room at length. Ambulation impaired with a walker. She is wanting an extra shower. Nursing staff states she had a shower the previous night, will have it probably on 01/23/2017. No CV, , pulmonary, eye system symptoms on review. MENTAL STATUS EXAM: Oriented to herself and situation. Insight, judgment, recent memory is impaired. Language function intact. Attention span short. Mood and affect less paranoid, less anxious, less labile. LABORATORY DATA: Reviewed. IMPRESSION: Unchanged from initial note. Valproic acid level is 51, therapeutic. Continue current psychotropics. Adjust as clinically indicated. MAN Matt SCOTT MD DR: ALE/amina JOB#: [id number] / [id number]
[2017-01-24 06:13] VITALS: BP 156/66
[2017-01-24] MEDS: risperiDONE 0.25 MG TABLET. PO SCH ×2 (09:32→13:50)
[2017-01-24] MEDS: ESCITALOPRAM 10 MG TABLET. PO SCH (09:32)
[2017-01-24] MEDS: LISINOPRIL 20 MG TABLET PO SCH (09:32)
[2017-01-24] MEDS: busPIRone 10 MG TABLET. PO SCH ×3 (09:33→19:29)
[2017-01-24] MEDS: DIVALPROEX 125 MG CAP.SPRINK PO SCH ×2 (09:33→19:30)
[2017-01-24] MEDS: ALPRAZOLAM 0.25 MG TABLET PO SCH ×2 (09:34→19:31)
[2017-01-24 15:26] VITALS: BP 127/73
[2017-01-24] MEDS: DONEPEZIL HCL 10 MG TABLET PO SCH (19:30)
--- NOTE | 2017-01-24 20:59 | PDOC ---
Exam Ab Demential Exam: Ab Note: Please also refer to the separate dictated note~for this date of service dictated separately.~Patient seen individually. Discussed the patient with Nursing staff reviewed the chart.~Reviewed interim history and current functioning. Reviewed vital signs,~Labs/ Radiology~and current medications noted below. Continue current treatment with the changes noted in the dictated addendum note Assessment: Vital Signs: Vital Signs Date Time Temp Pulse Resp B/P Pulse Ox O2 Delivery O2 Flow Rate FiO2 01/24/17 15:26 97.6 69 17 127/73 94 01/23/17 06:16 Room Air I&O Intake and Output 01/24/17 07:00 Intake Total 800 ml Balance 800 ml Intake Oral 800 ml Current Medications: Meds: Current Medications Trimethoprim/ Sulfamethoxazole (Bactrim Ds) 1 tab 1X ONCE PO Last administered on 12/31/16 00:02; Start 12/30/16 at 23:55; Stop 12/30/16 at 23:56 ; Status DC Multi-Ingredient Ointment (Analgesic [place]) 1 jazlyn PRN QID PRN TP MUSCLE PAIN; Start 12/31/16 at 00:00 Al Hydroxide/Mg Hydroxide (Mylanta Plus Xs) 15 ml PRN AFTMEALHC PRN PO DYSPEPSIA; Start 12/31/16 at 00:00 Magnesium Hydroxide (Milk Of Magnesia) 2,400 mg PRN QHS PRN PO CONSTIPATION; Start 12/31/16 at 00:00 Alprazolam (Xanax) 0.5 mg TID PO Last administered on 01/12/17 08:46; Start at 09:00; Stop 01/12/17 at 14:01; Status DC Divalproex Sodium (Depakote Sprinkles) 250 mg BID PO Last administered on 19:30; Start 12/31/16 at 09:00 Donepezil HCl (Aricept) 10 mg QHS PO Last administered on 01/24/17 19:30; Start 12/31/16 at 21:00 Lorazepam (Ativan) 0.5 mg PRN Q4HRS PRN PO ANXIETY / AGITATION Last administered on 12/31/16 05:50; Start 12/31/16 at 00:00; Stop 12/31/16 at 06:19 ; Status DC Paroxetine HCl (Paxil) 20 mg DAILY PO Last administered on 01/03/17 08:27; Start 12/31/16 at 09:00; Stop 01/03/17 at 13:07; Status DC Quetiapine Fumarate (SEROquel) 25 mg TID PO Last administered on 01/13/17 14:11 ; Start 12/31/16 at 09:00; Stop 01/13/17 at 18:06; Status DC Temazepam (Restoril) 15 mg PRN QHS PRN PO INSOMNIA Last administered on 20:47; Start 12/31/16 at 00:00 Olanzapine (Zyprexa Zydis) 2.5 mg PRN Q2HR PRN PO PSYCHOSIS Last administered on 01/23/17 19:34; Start 12/31/16 at 06:30 Hydroxyzine HCl (Atarax) 50 mg PRN TID PRN PO ANXIETY Last administered on 01/23 11:27; Start 12/31/16 at 07:30 Lorazepam (Ativan) 0.5 mg DAILY IM Last administered on 01/04/17 08:41; Start 12/31/16 at 08:30; Stop 01/04/17 at 18:32; Status DC Haloperidol Lactate (Haldol) 5 mg DAILY IM Last administered on 01/04/17 08:40 ; Start 12/31/16 at 08:30; Stop 01/04/17 at 18:32; Status DC Acetaminophen (Tylenol) 650 mg PRN Q4HRS PRN PO PAIN / TEMP Last administered on 01/16/17 06:16; Start 12/31/16 at 09:15 Bisacodyl (Dulcolax Tab) 10 mg PRN QHS PRN PO CONSTIPATION; Start 12/31/16 at 09:15 Diphenhydramine HCl (Benadryl) 25 mg PRN Q8HRS PRN PO RASH; Start 12/31/16 at 09:15 Senna/Docusate Sodium (Senna Plus) 1 tab PRN QHS PRN PO CONSTIPATION Last administered on 01/17/17 19:20; Start 12/31/16 at 09:15 Lisinopril (Prinivil) 40 mg DAILY PO Last administered on 01/24/17 09:32; Start 12/31/16 at 09:30 Vitamin D (Vitamin D3) 50,000 unit WEEKLY PO Last administered on 01/22/17 09: 41; Start 01/08/17 at 09:00; Stop 03/10/17 at 08:59 Escitalopram Oxalate (Lexapro) 10 mg DAILY PO Last administered on 01/24/17 09 :32; Start 01/04/17 at 09:00 Buspirone HCl (Buspar) 5 mg BID PO Last administered on 01/10/17 09:28; Start 01/09/17 at 21:00; Stop 01/10/17 at 18:33; Status DC Buspirone HCl (Buspar) 10 mg BID PO Last administered on 01/12/17 08:44; Start 01/10/17 at 21:00; Stop 01/12/17 at 14:01; Status DC Alprazolam (Xanax) 0.25 mg QID PO Last administered on 01/21/17 16:36; Start 01/12/17 at 17:00; Stop 01/21/17 at 18:51; Status DC Buspirone HCl (Buspar) 10 mg TID PO Last administered on 01/24/17 19:29; Start 01/12/17 at 14:00 Alprazolam (Xanax) 0.25 mg 1X ONCE PO Last administered on 01/12/17 14:47; Start 01/12/17 at 14:30; Stop 01/12/17 at 14:31; Status DC Quetiapine Fumarate (SEROquel) 25 mg DAILY@14 PO Last administered on 01/16/17 14:58; Start 01/14/17 at 14:00; Stop 01/16/17 at 18:25; Status DC Quetiapine Fumarate (SEROquel) 37.5 mg BID@ PO Last administered on 08:42; Start 01/13/17 at 21:00; Stop 01/17/17 at 18:29; Status DC Ondansetron HCl (Zofran Odt) 4 mg PRN Q4HRS PRN PO NAUSEA/VOMITING Last administered on 01/16/17 09:38; Start 01/16/17 at 09:00 Quetiapine Fumarate (SEROquel) 25 mg DAILY@15 PO Last administered on 14:01; Start 01/17/17 at 15:00; Stop 01/17/17 at 18:29; Status DC Lorazepam (Ativan) 0.5 mg DAILY IV ; Start 01/17/17 at 11:00; Stop 01/17/17 at 11:20; Status DC Lorazepam (Ativan) 0.5 mg DAILY IM Last administered on 01/21/17 09:10; Start 01/17/17 at 11:00; Stop 01/21/17 at 18:36; Status DC Risperidone (Risperdal) 0.25 mg [id number] PO Last administered on 01/24/17 13:50; Start 01/18/17 at 09:00 Cefpodoxime Proxetil (Vantin) 200 mg BID PO Last administered on 01/20/17 08: 25; Start 01/18/17 at 12:30; Stop 01/20/17 at 17:34; Status DC Alprazolam (Xanax) 0.25 mg QID PO Last administered on 01/21/17 20:31; Start 01/21/17 at 21:00; Stop 01/21/17 at 22:00; Status DC Alprazolam (Xanax) 0.25 mg [id number] PO Last administered on 01/23/17 19:33; Start 01/22/17 at 09:00; Stop 01/23/17 at 22:01; Status DC Alprazolam (Xanax) 0.25 mg BID PO Last administered on 01/24/17 19:31; Start 01/24/17 at 09:00; Stop 01/25/17 at 22:00 Alprazolam (Xanax) 0.25 mg DAILY PO ; Start 01/26/17 at 09:00; Stop 01/26/17 at 20:00 Active Scripts Active Reported Senna S Tablet (Sennosides/Docusate Sodium) 1 Each Tablet 1 Tab PO PRN QHS PRN Tylenol (Acetaminophen) 325 Mg Tablet 650 Mg PO PRN Q4HRS PRN Lorazepam 0.5 Mg Tablet 0.5 Mg PO PRN Q4HRS PRN Bisacodyl 5 Mg Tablet.dr 10 Mg PO PRN QHS PRN Diphenhydramine Hcl 25 Mg Tablet 25 Mg PO PRN QHS PRN Temazepam 15 Mg Capsule 15 Mg PO PRN QHS PRN Depakote Sprinkle (Divalproex Sodium) 125 Mg Cap.sprink 250 Mg PO BID Benadryl (Diphenhydramine Hcl) 25 Mg Capsule 25 Mg PO PRN Q8HRS PRN Seroquel (Quetiapine Fumarate) 25 Mg Tablet 25 Mg PO TID Alprazolam 0.5 Mg Tablet 0.5 Mg PO TID Aricept (Donepezil Hcl) 10 Mg Tablet 10 Mg PO QHS Paroxetine Hcl 20 Mg Tablet 20 Mg PO DAILY Lisinopril 40 Mg Tablet 40 Mg PO DAILY Diagnosis: Problems: (1) Dementia with behavioral disturbance (2) Anxiety disorder (3) Dementia in Alzheimer's disease with delusions (4) Dementia in Alzheimer's disease with depression (5) Dementia, vascular, with delusions (6) Dementia, vascular, with depression (7) Impulse control disorder TIFFANIE SCOTT MD Jan 24, 2017 20:59
--- NOTE | 2017-01-24 21:36 | PN ---
DATE: 01/23/2017 PSYCHIATRIC PROGRESS NOTE This is late entry of 01/23/2017, covers elements not covered in my initial note. SUBJECTIVE: Overall, per nursing report, the patient remains confused, forgetful, but behaviorally better, less paranoid. Mood is less anxious, less depressed, looking for her son. REVIEW OF SYSTEMS: No CV, , pulmonary, eye system symptoms on review. Gait unsteady with a walker. MENTAL STATUS EXAMINATION: Pleasant, verbal, smiling. Insight, judgment, recent and remote memory, attention, concentration, fund of knowledge poor, consistent with her diagnosis mentioned in my initial note. PLAN: Continue psychotropics mentioned in my initial note. Valproic acid level is subtherapeutic. We may need to adjust further as clinically indicated, but she seems to be doing well enough at current dosage and we may not increase it to avoid side effects. TIFFANIE SCOTT MD DR: ALE/amina JOB#: [id number] / [id number]
[2017-01-25 06:27] VITALS: BP 149/72
[2017-01-25] MEDS: ALPRAZOLAM 0.25 MG TABLET PO SCH ×2 (08:33→19:45)
[2017-01-25] MEDS: risperiDONE 0.25 MG TABLET. PO SCH ×2 (08:33→13:45)
[2017-01-25] MEDS: busPIRone 10 MG TABLET. PO SCH ×3 (08:33→19:45)
[2017-01-25] MEDS: DIVALPROEX 125 MG CAP.SPRINK PO SCH ×2 (08:33→19:45)
[2017-01-25] MEDS: LISINOPRIL 20 MG TABLET PO SCH (08:34)
[2017-01-25] MEDS: ESCITALOPRAM 10 MG TABLET. PO SCH (08:34)
[2017-01-25 15:17] VITALS: BP 138/73
[2017-01-25] MEDS: DONEPEZIL HCL 10 MG TABLET PO SCH (19:45)
--- NOTE | 2017-01-25 19:45 | PN ---
DATE: 01/24/2017 PSYCHIATRIC PROGRESS NOTE This is late entry of 01/24/2017, covers elements not covered in my initial note. SUBJECTIVE: The patient has been well oriented to herself and situation, did better in the morning, more anxious after lunch, got her medications, then did better. Previous evening she had put a walker in front of the door, did not want one of the other demented patients walking into her room, but very appropriate inviting as I met with her and entered her room. REVIEW OF SYSTEMS: Ambulation impaired with a walker. No CV, , pulmonary, eye, ENT system symptoms on review. Reliability poor. MENTAL STATUS EXAMINATION: Oriented to herself and situation. Speech coherent. She is pleasant, verbal, smiling. Abstraction fair, computation impaired, language function intact. Attention span short, still somewhat anxious, but improved. LABORATORY DATA: Reviewed. IMPRESSION: Major neurocognitive disorder, Alzheimer, vascular with depression, delusion, behavioral disturbance. Rest diagnoses unchanged from initial note. PLAN: Continue psychotropics mentioned in my initial note. Transition to a lower level of care later this week. MAN Matt SCOTT MD DR: ALE/amina JOB#: [id number] / [id number]
--- NOTE | 2017-01-25 21:02 | PDOC ---
Exam Ab Demential Exam: Ab Note: Please also refer to the separate dictated note~for this date of service dictated separately.~Patient seen individually. Discussed the patient with Nursing staff reviewed the chart.~Reviewed interim history and current functioning. Reviewed vital signs,~Labs/ Radiology~and current medications noted below. Continue current treatment with the changes noted in the dictated addendum note Assessment: Vital Signs: Vital Signs Date Time Temp Pulse Resp B/P Pulse Ox O2 Delivery O2 Flow Rate FiO2 01/25/17 15:17 97.7 73 18 138/73 95 01/23/17 06:16 Room Air I&O Intake and Output 01/25/17 07:00 Intake Total 1080 ml Balance 1080 ml Intake Oral 1080 ml # Voids 2 # Bowel Movements 1 Current Medications: Meds: Current Medications Trimethoprim/ Sulfamethoxazole (Bactrim Ds) 1 tab 1X ONCE PO Last administered on 12/31/16 00:02; Start 12/30/16 at 23:55; Stop 12/30/16 at 23:56 ; Status DC Multi-Ingredient Ointment (Analgesic [place]) 1 jazlyn PRN QID PRN TP MUSCLE PAIN; Start 12/31/16 at 00:00 Al Hydroxide/Mg Hydroxide (Mylanta Plus Xs) 15 ml PRN AFTMEALHC PRN PO DYSPEPSIA; Start 12/31/16 at 00:00 Magnesium Hydroxide (Milk Of Magnesia) 2,400 mg PRN QHS PRN PO CONSTIPATION; Start 12/31/16 at 00:00 Alprazolam (Xanax) 0.5 mg TID PO Last administered on 01/12/17 08:46; Start at 09:00; Stop 01/12/17 at 14:01; Status DC Divalproex Sodium (Depakote Sprinkles) 250 mg BID PO Last administered on 19:45; Start 12/31/16 at 09:00 Donepezil HCl (Aricept) 10 mg QHS PO Last administered on 01/25/17 19:45; Start 12/31/16 at 21:00 Lorazepam (Ativan) 0.5 mg PRN Q4HRS PRN PO ANXIETY / AGITATION Last administered on 12/31/16 05:50; Start 12/31/16 at 00:00; Stop 12/31/16 at 06:19 ; Status DC Paroxetine HCl (Paxil) 20 mg DAILY PO Last administered on 01/03/17 08:27; Start 12/31/16 at 09:00; Stop 01/03/17 at 13:07; Status DC Quetiapine Fumarate (SEROquel) 25 mg TID PO Last administered on 01/13/17 14:11 ; Start 12/31/16 at 09:00; Stop 01/13/17 at 18:06; Status DC Temazepam (Restoril) 15 mg PRN QHS PRN PO INSOMNIA Last administered on 20:47; Start 12/31/16 at 00:00 Olanzapine (Zyprexa Zydis) 2.5 mg PRN Q2HR PRN PO PSYCHOSIS Last administered on 01/23/17 19:34; Start 12/31/16 at 06:30 Hydroxyzine HCl (Atarax) 50 mg PRN TID PRN PO ANXIETY Last administered on 01/23 11:27; Start 12/31/16 at 07:30 Lorazepam (Ativan) 0.5 mg DAILY IM Last administered on 01/04/17 08:41; Start 12/31/16 at 08:30; Stop 01/04/17 at 18:32; Status DC Haloperidol Lactate (Haldol) 5 mg DAILY IM Last administered on 01/04/17 08:40 ; Start 12/31/16 at 08:30; Stop 01/04/17 at 18:32; Status DC Acetaminophen (Tylenol) 650 mg PRN Q4HRS PRN PO PAIN / TEMP Last administered on 01/16/17 06:16; Start 12/31/16 at 09:15 Bisacodyl (Dulcolax Tab) 10 mg PRN QHS PRN PO CONSTIPATION; Start 12/31/16 at 09:15 Diphenhydramine HCl (Benadryl) 25 mg PRN Q8HRS PRN PO RASH; Start 12/31/16 at 09:15 Senna/Docusate Sodium (Senna Plus) 1 tab PRN QHS PRN PO CONSTIPATION Last administered on 01/17/17 19:20; Start 12/31/16 at 09:15 Lisinopril (Prinivil) 40 mg DAILY PO Last administered on 01/25/17 08:34; Start 12/31/16 at 09:30 Vitamin D (Vitamin D3) 50,000 unit WEEKLY PO Last administered on 01/22/17 09: 41; Start 01/08/17 at 09:00; Stop 03/10/17 at 08:59 Escitalopram Oxalate (Lexapro) 10 mg DAILY PO Last administered on 01/25/17 08 :34; Start 01/04/17 at 09:00 Buspirone HCl (Buspar) 5 mg BID PO Last administered on 01/10/17 09:28; Start 01/09/17 at 21:00; Stop 01/10/17 at 18:33; Status DC Buspirone HCl (Buspar) 10 mg BID PO Last administered on 01/12/17 08:44; Start 01/10/17 at 21:00; Stop 01/12/17 at 14:01; Status DC Alprazolam (Xanax) 0.25 mg QID PO Last administered on 01/21/17 16:36; Start 01/12/17 at 17:00; Stop 01/21/17 at 18:51; Status DC Buspirone HCl (Buspar) 10 mg TID PO Last administered on 01/25/17 19:45; Start 01/12/17 at 14:00 Alprazolam (Xanax) 0.25 mg 1X ONCE PO Last administered on 01/12/17 14:47; Start 01/12/17 at 14:30; Stop 01/12/17 at 14:31; Status DC Quetiapine Fumarate (SEROquel) 25 mg DAILY@14 PO Last administered on 01/16/17 14:58; Start 01/14/17 at 14:00; Stop 01/16/17 at 18:25; Status DC Quetiapine Fumarate (SEROquel) 37.5 mg BID@ PO Last administered on 08:42; Start 01/13/17 at 21:00; Stop 01/17/17 at 18:29; Status DC Ondansetron HCl (Zofran Odt) 4 mg PRN Q4HRS PRN PO NAUSEA/VOMITING Last administered on 01/16/17 09:38; Start 01/16/17 at 09:00 Quetiapine Fumarate (SEROquel) 25 mg DAILY@15 PO Last administered on 14:01; Start 01/17/17 at 15:00; Stop 01/17/17 at 18:29; Status DC Lorazepam (Ativan) 0.5 mg DAILY IV ; Start 01/17/17 at 11:00; Stop 01/17/17 at 11:20; Status DC Lorazepam (Ativan) 0.5 mg DAILY IM Last administered on 01/21/17 09:10; Start 01/17/17 at 11:00; Stop 01/21/17 at 18:36; Status DC Risperidone (Risperdal) 0.25 mg [id number] PO Last administered on 01/25/17 13:45; Start 01/18/17 at 09:00 Cefpodoxime Proxetil (Vantin) 200 mg BID PO Last administered on 01/20/17 08: 25; Start 01/18/17 at 12:30; Stop 01/20/17 at 17:34; Status DC Alprazolam (Xanax) 0.25 mg QID PO Last administered on 01/21/17 20:31; Start 01/21/17 at 21:00; Stop 01/21/17 at 22:00; Status DC Alprazolam (Xanax) 0.25 mg [id number] PO Last administered on 01/23/17 19:33; Start 01/22/17 at 09:00; Stop 01/23/17 at 22:01; Status DC Alprazolam (Xanax) 0.25 mg BID PO Last administered on 01/25/17 19:45; Start 01/24/17 at 09:00; Stop 01/25/17 at 22:00 Alprazolam (Xanax) 0.25 mg DAILY PO ; Start 01/26/17 at 09:00; Stop 01/26/17 at 20:00 Active Scripts Active Reported Senna S Tablet (Sennosides/Docusate Sodium) 1 Each Tablet 1 Tab PO PRN QHS PRN Tylenol (Acetaminophen) 325 Mg Tablet 650 Mg PO PRN Q4HRS PRN Lorazepam 0.5 Mg Tablet 0.5 Mg PO PRN Q4HRS PRN Bisacodyl 5 Mg Tablet.dr 10 Mg PO PRN QHS PRN Diphenhydramine Hcl 25 Mg Tablet 25 Mg PO PRN QHS PRN Temazepam 15 Mg Capsule 15 Mg PO PRN QHS PRN Depakote Sprinkle (Divalproex Sodium) 125 Mg Cap.sprink 250 Mg PO BID Benadryl (Diphenhydramine Hcl) 25 Mg Capsule 25 Mg PO PRN Q8HRS PRN Seroquel (Quetiapine Fumarate) 25 Mg Tablet 25 Mg PO TID Alprazolam 0.5 Mg Tablet 0.5 Mg PO TID Aricept (Donepezil Hcl) 10 Mg Tablet 10 Mg PO QHS Paroxetine Hcl 20 Mg Tablet 20 Mg PO DAILY Lisinopril 40 Mg Tablet 40 Mg PO DAILY Diagnosis: Problems: (1) Dementia with behavioral disturbance (2) Anxiety disorder (3) Dementia in Alzheimer's disease with delusions (4) Dementia in Alzheimer's disease with depression (5) Dementia, vascular, with delusions (6) Dementia, vascular, with depression (7) Impulse control disorder TIFFANIE SCOTT MD Jan 25, 2017 21:02
[2017-01-26 07:14] VITALS: BP 150/69
[2017-01-26] MEDS: risperiDONE 0.25 MG TABLET. PO SCH ×2 (08:34→15:42)
[2017-01-26] MEDS: LISINOPRIL 20 MG TABLET PO SCH (08:35)
[2017-01-26] MEDS: busPIRone 10 MG TABLET. PO SCH ×3 (08:35→19:20)
[2017-01-26] MEDS: DIVALPROEX 125 MG CAP.SPRINK PO SCH ×2 (08:35→19:21)
[2017-01-26] MEDS: ESCITALOPRAM 10 MG TABLET. PO SCH (08:35)
[2017-01-26] MEDS ORDERED: ALPRAZOLAM 0.25 MG TABLET PO SCH (09:00)
[2017-01-26 16:15] VITALS: BP 165/85
[2017-01-26] MEDS: DONEPEZIL HCL 10 MG TABLET PO SCH (19:20)
--- NOTE | 2017-01-26 20:24 | PN ---
DATE: 01/25/2017 PSYCHIATRIC PROGRESS NOTE This is late entry of 01/25/2017, covers elements not covered in my initial note. SUBJECTIVE: The patient did well in the morning of 01/25/2017, then in the afternoon, she was in her room, isolative, withdrawn with the door closed, then her daughter visited and patient was wanting to leave the hospital with her daughter, oblivious of why she was here. REVIEW OF SYSTEMS: Ambulation impaired with a walker. No CV, , pulmonary, eye system symptoms on review. She was asking if she had a place to sleep here. I walked her to her room, showed her her name written on the wall and she had soon forgotten this. MENTAL STATUS EXAMINATION: Insight, judgment, recent and remote memory, attention, concentration, fund of knowledge poor, consistent with her diagnosis as mentioned in my initial note. PLAN: Continue current psychotropics. Adjust as clinically indicated. MAN Matt SCOTT MD DR: ALE/amina JOB#: [id number] / [id number]
--- NOTE | 2017-01-26 21:01 | PDOC ---
Exam Ab Demential Exam: Ab Note: Please also refer to the separate dictated note~for this date of service dictated separately.~Patient seen individually. Discussed the patient with Nursing staff reviewed the chart.~Reviewed interim history and current functioning. Reviewed vital signs,~Labs/ Radiology~and current medications noted below. Continue current treatment with the changes noted in the dictated addendum note Assessment: Vital Signs: Vital Signs Date Time Temp Pulse Resp B/P Pulse Ox O2 Delivery O2 Flow Rate FiO2 01/26/17 16:15 97.8 80 19 165/85 95 01/23/17 06:16 Room Air I&O Intake and Output 01/26/17 07:00 Intake Total 960 ml Balance 960 ml Intake Oral 960 ml Current Medications: Meds: Current Medications Trimethoprim/ Sulfamethoxazole (Bactrim Ds) 1 tab 1X ONCE PO Last administered on 12/31/16 00:02; Start 12/30/16 at 23:55; Stop 12/30/16 at 23:56 ; Status DC Multi-Ingredient Ointment (Analgesic [place]) 1 jazlyn PRN QID PRN TP MUSCLE PAIN; Start 12/31/16 at 00:00 Al Hydroxide/Mg Hydroxide (Mylanta Plus Xs) 15 ml PRN AFTMEALHC PRN PO DYSPEPSIA; Start 12/31/16 at 00:00 Magnesium Hydroxide (Milk Of Magnesia) 2,400 mg PRN QHS PRN PO CONSTIPATION; Start 12/31/16 at 00:00 Alprazolam (Xanax) 0.5 mg TID PO Last administered on 01/12/17 08:46; Start at 09:00; Stop 01/12/17 at 14:01; Status DC Divalproex Sodium (Depakote Sprinkles) 250 mg BID PO Last administered on 19:21; Start 12/31/16 at 09:00 Donepezil HCl (Aricept) 10 mg QHS PO Last administered on 01/26/17 19:20; Start 12/31/16 at 21:00 Lorazepam (Ativan) 0.5 mg PRN Q4HRS PRN PO ANXIETY / AGITATION Last administered on 12/31/16 05:50; Start 12/31/16 at 00:00; Stop 12/31/16 at 06:19 ; Status DC Paroxetine HCl (Paxil) 20 mg DAILY PO Last administered on 01/03/17 08:27; Start 12/31/16 at 09:00; Stop 01/03/17 at 13:07; Status DC Quetiapine Fumarate (SEROquel) 25 mg TID PO Last administered on 01/13/17 14:11 ; Start 12/31/16 at 09:00; Stop 01/13/17 at 18:06; Status DC Temazepam (Restoril) 15 mg PRN QHS PRN PO INSOMNIA Last administered on 20:47; Start 12/31/16 at 00:00 Olanzapine (Zyprexa Zydis) 2.5 mg PRN Q2HR PRN PO PSYCHOSIS Last administered on 01/23/17 19:34; Start 12/31/16 at 06:30 Hydroxyzine HCl (Atarax) 50 mg PRN TID PRN PO ANXIETY Last administered on 01/23 11:27; Start 12/31/16 at 07:30 Lorazepam (Ativan) 0.5 mg DAILY IM Last administered on 01/04/17 08:41; Start 12/31/16 at 08:30; Stop 01/04/17 at 18:32; Status DC Haloperidol Lactate (Haldol) 5 mg DAILY IM Last administered on 01/04/17 08:40 ; Start 12/31/16 at 08:30; Stop 01/04/17 at 18:32; Status DC Acetaminophen (Tylenol) 650 mg PRN Q4HRS PRN PO PAIN / TEMP Last administered on 01/16/17 06:16; Start 12/31/16 at 09:15 Bisacodyl (Dulcolax Tab) 10 mg PRN QHS PRN PO CONSTIPATION; Start 12/31/16 at 09:15 Diphenhydramine HCl (Benadryl) 25 mg PRN Q8HRS PRN PO RASH; Start 12/31/16 at 09:15 Senna/Docusate Sodium (Senna Plus) 1 tab PRN QHS PRN PO CONSTIPATION Last administered on 01/17/17 19:20; Start 12/31/16 at 09:15 Lisinopril (Prinivil) 40 mg DAILY PO Last administered on 01/26/17 08:35; Start 12/31/16 at 09:30 Vitamin D (Vitamin D3) 50,000 unit WEEKLY PO Last administered on 01/22/17 09: 41; Start 01/08/17 at 09:00; Stop 03/10/17 at 08:59 Escitalopram Oxalate (Lexapro) 10 mg DAILY PO Last administered on 01/26/17 08 :35; Start 01/04/17 at 09:00 Buspirone HCl (Buspar) 5 mg BID PO Last administered on 01/10/17 09:28; Start 01/09/17 at 21:00; Stop 01/10/17 at 18:33; Status DC Buspirone HCl (Buspar) 10 mg BID PO Last administered on 01/12/17 08:44; Start 01/10/17 at 21:00; Stop 01/12/17 at 14:01; Status DC Alprazolam (Xanax) 0.25 mg QID PO Last administered on 01/21/17 16:36; Start 01/12/17 at 17:00; Stop 01/21/17 at 18:51; Status DC Buspirone HCl (Buspar) 10 mg TID PO Last administered on 01/26/17 19:20; Start 01/12/17 at 14:00 Alprazolam (Xanax) 0.25 mg 1X ONCE PO Last administered on 01/12/17 14:47; Start 01/12/17 at 14:30; Stop 01/12/17 at 14:31; Status DC Quetiapine Fumarate (SEROquel) 25 mg DAILY@14 PO Last administered on 01/16/17 14:58; Start 01/14/17 at 14:00; Stop 01/16/17 at 18:25; Status DC Quetiapine Fumarate (SEROquel) 37.5 mg BID@ PO Last administered on 08:42; Start 01/13/17 at 21:00; Stop 01/17/17 at 18:29; Status DC Ondansetron HCl (Zofran Odt) 4 mg PRN Q4HRS PRN PO NAUSEA/VOMITING Last administered on 01/16/17 09:38; Start 01/16/17 at 09:00 Quetiapine Fumarate (SEROquel) 25 mg DAILY@15 PO Last administered on 14:01; Start 01/17/17 at 15:00; Stop 01/17/17 at 18:29; Status DC Lorazepam (Ativan) 0.5 mg DAILY IV ; Start 01/17/17 at 11:00; Stop 01/17/17 at 11:20; Status DC Lorazepam (Ativan) 0.5 mg DAILY IM Last administered on 01/21/17 09:10; Start 01/17/17 at 11:00; Stop 01/21/17 at 18:36; Status DC Risperidone (Risperdal) 0.25 mg [id number] PO Last administered on 01/26/17 15:42; Start 01/18/17 at 09:00 Cefpodoxime Proxetil (Vantin) 200 mg BID PO Last administered on 01/20/17 08: 25; Start 01/18/17 at 12:30; Stop 01/20/17 at 17:34; Status DC Alprazolam (Xanax) 0.25 mg QID PO Last administered on 01/21/17 20:31; Start 01/21/17 at 21:00; Stop 01/21/17 at 22:00; Status DC Alprazolam (Xanax) 0.25 mg [id number] PO Last administered on 01/23/17 19:33; Start 01/22/17 at 09:00; Stop 01/23/17 at 22:01; Status DC Alprazolam (Xanax) 0.25 mg BID PO Last administered on 01/25/17 19:45; Start 01/24/17 at 09:00; Stop 01/25/17 at 22:00; Status DC Alprazolam (Xanax) 0.25 mg DAILY PO Last administered on 01/26/17 08:37; Start 01/26/17 at 09:00; Stop 01/26/17 at 20:01; Status DC Active Scripts Active Reported Senna S Tablet (Sennosides/Docusate Sodium) 1 Each Tablet 1 Tab PO PRN QHS PRN Tylenol (Acetaminophen) 325 Mg Tablet 650 Mg PO PRN Q4HRS PRN Lorazepam 0.5 Mg Tablet 0.5 Mg PO PRN Q4HRS PRN Bisacodyl 5 Mg Tablet.dr 10 Mg PO PRN QHS PRN Diphenhydramine Hcl 25 Mg Tablet 25 Mg PO PRN QHS PRN Temazepam 15 Mg Capsule 15 Mg PO PRN QHS PRN Depakote Sprinkle (Divalproex Sodium) 125 Mg Cap.sprink 250 Mg PO BID Benadryl (Diphenhydramine Hcl) 25 Mg Capsule 25 Mg PO PRN Q8HRS PRN Seroquel (Quetiapine Fumarate) 25 Mg Tablet 25 Mg PO TID Alprazolam 0.5 Mg Tablet 0.5 Mg PO TID Aricept (Donepezil Hcl) 10 Mg Tablet 10 Mg PO QHS Paroxetine Hcl 20 Mg Tablet 20 Mg PO DAILY Lisinopril 40 Mg Tablet 40 Mg PO DAILY Diagnosis: Problems: (1) Dementia with behavioral disturbance (2) Anxiety disorder (3) Dementia in Alzheimer's disease with delusions (4) Dementia in Alzheimer's disease with depression (5) Dementia, vascular, with delusions (6) Dementia, vascular, with depression (7) Impulse control disorder TIFFANIE SCOTT MD Jan 26, 2017 21:01
[2017-01-27] MEDS: HYDROXYZINE HCL 25 MG TABLET PO PRN (04:12)
[2017-01-27 05:50] VITALS: BP 182/96
[2017-01-27] MEDS: ESCITALOPRAM 10 MG TABLET. PO SCH (09:38)
[2017-01-27] MEDS: risperiDONE 0.25 MG TABLET. PO SCH ×2 (09:39→13:45)
[2017-01-27] MEDS: LISINOPRIL 20 MG TABLET PO SCH (09:39)
[2017-01-27] MEDS: busPIRone 10 MG TABLET. PO SCH ×3 (09:39→19:29)
[2017-01-27] MEDS: DIVALPROEX 125 MG CAP.SPRINK PO SCH ×2 (09:40→19:29)
[2017-01-27 15:39] VITALS: BP 149/71
[2017-01-27] MEDS: DONEPEZIL HCL 10 MG TABLET PO SCH (19:29)
[2017-01-27] MEDS: TEMAZEPAM 15 MG CAPSULE PO PRN (19:29)
--- NOTE | 2017-01-27 21:06 | PDOC ---
Exam Ab Demential Exam: Ab Note: Please also refer to the separate dictated note~for this date of service dictated separately.~Patient seen individually. Discussed the patient with Nursing staff reviewed the chart.~Reviewed interim history and current functioning. Reviewed vital signs,~Labs/ Radiology~and current medications noted below. Continue current treatment with the changes noted in the dictated addendum note Assessment: Vital Signs: Vital Signs Date Time Temp Pulse Resp B/P Pulse Ox O2 Delivery O2 Flow Rate FiO2 01/27/17 15:39 97.7 65 18 149/71 96 01/23/17 06:16 Room Air I&O Intake and Output 01/27/17 07:00 Intake Total 960 ml Balance 960 ml Intake Oral 960 ml Current Medications: Meds: Current Medications Trimethoprim/ Sulfamethoxazole (Bactrim Ds) 1 tab 1X ONCE PO Last administered on 12/31/16 00:02; Start 12/30/16 at 23:55; Stop 12/30/16 at 23:56 ; Status DC Multi-Ingredient Ointment (Analgesic [place]) 1 jazlyn PRN QID PRN TP MUSCLE PAIN; Start 12/31/16 at 00:00 Al Hydroxide/Mg Hydroxide (Mylanta Plus Xs) 15 ml PRN AFTMEALHC PRN PO DYSPEPSIA; Start 12/31/16 at 00:00 Magnesium Hydroxide (Milk Of Magnesia) 2,400 mg PRN QHS PRN PO CONSTIPATION; Start 12/31/16 at 00:00 Alprazolam (Xanax) 0.5 mg TID PO Last administered on 01/12/17 08:46; Start at 09:00; Stop 01/12/17 at 14:01; Status DC Divalproex Sodium (Depakote Sprinkles) 250 mg BID PO Last administered on 19:29; Start 12/31/16 at 09:00 Donepezil HCl (Aricept) 10 mg QHS PO Last administered on 01/27/17 19:29; Start 12/31/16 at 21:00 Lorazepam (Ativan) 0.5 mg PRN Q4HRS PRN PO ANXIETY / AGITATION Last administered on 12/31/16 05:50; Start 12/31/16 at 00:00; Stop 12/31/16 at 06:19 ; Status DC Paroxetine HCl (Paxil) 20 mg DAILY PO Last administered on 01/03/17 08:27; Start 12/31/16 at 09:00; Stop 01/03/17 at 13:07; Status DC Quetiapine Fumarate (SEROquel) 25 mg TID PO Last administered on 01/13/17 14:11 ; Start 12/31/16 at 09:00; Stop 01/13/17 at 18:06; Status DC Temazepam (Restoril) 15 mg PRN QHS PRN PO INSOMNIA Last administered on 19:29; Start 12/31/16 at 00:00 Olanzapine (Zyprexa Zydis) 2.5 mg PRN Q2HR PRN PO PSYCHOSIS Last administered on 01/23/17 19:34; Start 12/31/16 at 06:30 Hydroxyzine HCl (Atarax) 50 mg PRN TID PRN PO ANXIETY Last administered on 01/27 04:12; Start 12/31/16 at 07:30 Lorazepam (Ativan) 0.5 mg DAILY IM Last administered on 01/04/17 08:41; Start 12/31/16 at 08:30; Stop 01/04/17 at 18:32; Status DC Haloperidol Lactate (Haldol) 5 mg DAILY IM Last administered on 01/04/17 08:40 ; Start 12/31/16 at 08:30; Stop 01/04/17 at 18:32; Status DC Acetaminophen (Tylenol) 650 mg PRN Q4HRS PRN PO PAIN / TEMP Last administered on 01/16/17 06:16; Start 12/31/16 at 09:15 Bisacodyl (Dulcolax Tab) 10 mg PRN QHS PRN PO CONSTIPATION; Start 12/31/16 at 09:15 Diphenhydramine HCl (Benadryl) 25 mg PRN Q8HRS PRN PO RASH; Start 12/31/16 at 09:15 Senna/Docusate Sodium (Senna Plus) 1 tab PRN QHS PRN PO CONSTIPATION Last administered on 01/17/17 19:20; Start 12/31/16 at 09:15 Lisinopril (Prinivil) 40 mg DAILY PO Last administered on 01/27/17 09:39; Start 12/31/16 at 09:30 Vitamin D (Vitamin D3) 50,000 unit WEEKLY PO Last administered on 01/22/17 09: 41; Start 01/08/17 at 09:00; Stop 03/10/17 at 08:59 Escitalopram Oxalate (Lexapro) 10 mg DAILY PO Last administered on 01/27/17 09 :38; Start 01/04/17 at 09:00 Buspirone HCl (Buspar) 5 mg BID PO Last administered on 01/10/17 09:28; Start 01/09/17 at 21:00; Stop 01/10/17 at 18:33; Status DC Buspirone HCl (Buspar) 10 mg BID PO Last administered on 01/12/17 08:44; Start 01/10/17 at 21:00; Stop 01/12/17 at 14:01; Status DC Alprazolam (Xanax) 0.25 mg QID PO Last administered on 01/21/17 16:36; Start 01/12/17 at 17:00; Stop 01/21/17 at 18:51; Status DC Buspirone HCl (Buspar) 10 mg TID PO Last administered on 01/27/17 19:29; Start 01/12/17 at 14:00 Alprazolam (Xanax) 0.25 mg 1X ONCE PO Last administered on 01/12/17 14:47; Start 01/12/17 at 14:30; Stop 01/12/17 at 14:31; Status DC Quetiapine Fumarate (SEROquel) 25 mg DAILY@14 PO Last administered on 01/16/17 14:58; Start 01/14/17 at 14:00; Stop 01/16/17 at 18:25; Status DC Quetiapine Fumarate (SEROquel) 37.5 mg BID@ PO Last administered on 08:42; Start 01/13/17 at 21:00; Stop 01/17/17 at 18:29; Status DC Ondansetron HCl (Zofran Odt) 4 mg PRN Q4HRS PRN PO NAUSEA/VOMITING Last administered on 01/16/17 09:38; Start 01/16/17 at 09:00 Quetiapine Fumarate (SEROquel) 25 mg DAILY@15 PO Last administered on 14:01; Start 01/17/17 at 15:00; Stop 01/17/17 at 18:29; Status DC Lorazepam (Ativan) 0.5 mg DAILY IV ; Start 01/17/17 at 11:00; Stop 01/17/17 at 11:20; Status DC Lorazepam (Ativan) 0.5 mg DAILY IM Last administered on 01/21/17 09:10; Start 01/17/17 at 11:00; Stop 01/21/17 at 18:36; Status DC Risperidone (Risperdal) 0.25 mg [id number] PO Last administered on 01/27/17 13:45; Start 01/18/17 at 09:00 Cefpodoxime Proxetil (Vantin) 200 mg BID PO Last administered on 01/20/17 08: 25; Start 01/18/17 at 12:30; Stop 01/20/17 at 17:34; Status DC Alprazolam (Xanax) 0.25 mg QID PO Last administered on 01/21/17 20:31; Start 01/21/17 at 21:00; Stop 01/21/17 at 22:00; Status DC Alprazolam (Xanax) 0.25 mg [id number] PO Last administered on 01/23/17 19:33; Start 01/22/17 at 09:00; Stop 01/23/17 at 22:01; Status DC Alprazolam (Xanax) 0.25 mg BID PO Last administered on 01/25/17 19:45; Start 01/24/17 at 09:00; Stop 01/25/17 at 22:00; Status DC Alprazolam (Xanax) 0.25 mg DAILY PO Last administered on 01/26/17 08:37; Start 01/26/17 at 09:00; Stop 01/26/17 at 20:01; Status DC Active Scripts Active Reported Senna S Tablet (Sennosides/Docusate Sodium) 1 Each Tablet 1 Tab PO PRN QHS PRN Tylenol (Acetaminophen) 325 Mg Tablet 650 Mg PO PRN Q4HRS PRN Lorazepam 0.5 Mg Tablet 0.5 Mg PO PRN Q4HRS PRN Bisacodyl 5 Mg Tablet.dr 10 Mg PO PRN QHS PRN Diphenhydramine Hcl 25 Mg Tablet 25 Mg PO PRN QHS PRN Temazepam 15 Mg Capsule 15 Mg PO PRN QHS PRN Depakote Sprinkle (Divalproex Sodium) 125 Mg Cap.sprink 250 Mg PO BID Benadryl (Diphenhydramine Hcl) 25 Mg Capsule 25 Mg PO PRN Q8HRS PRN Seroquel (Quetiapine Fumarate) 25 Mg Tablet 25 Mg PO TID Alprazolam 0.5 Mg Tablet 0.5 Mg PO TID Aricept (Donepezil Hcl) 10 Mg Tablet 10 Mg PO QHS Paroxetine Hcl 20 Mg Tablet 20 Mg PO DAILY Lisinopril 40 Mg Tablet 40 Mg PO DAILY Diagnosis: Problems: (1) Dementia with behavioral disturbance (2) Anxiety disorder (3) Dementia in Alzheimer's disease with delusions (4) Dementia in Alzheimer's disease with depression (5) Dementia, vascular, with delusions (6) Dementia, vascular, with depression (7) Impulse control disorder TIFFANIE SCOTT MD Jan 27, 2017 21:06
[2017-01-28 06:31] VITALS: BP 140/64
[2017-01-28] MEDS: busPIRone 10 MG TABLET. PO SCH ×3 (07:55→19:33)
[2017-01-28] MEDS: LISINOPRIL 20 MG TABLET PO SCH (07:55)
[2017-01-28] MEDS: ESCITALOPRAM 10 MG TABLET. PO SCH (07:55)
[2017-01-28] MEDS: risperiDONE 0.25 MG TABLET. PO SCH ×2 (07:56→11:54)
[2017-01-28] MEDS: DIVALPROEX 125 MG CAP.SPRINK PO SCH ×2 (07:56→19:34)
[2017-01-28 15:24] VITALS: BP 149/87
[2017-01-28] MEDS: DONEPEZIL HCL 10 MG TABLET PO SCH (19:34)
--- NOTE | 2017-01-28 20:57 | PDOC ---
Exam Ab Demential Exam: Ab Note: Please also refer to the separate dictated note~for this date of service dictated separately.~Patient seen individually. Discussed the patient with Nursing staff reviewed the chart.~Reviewed interim history and current functioning. Reviewed vital signs,~Labs/ Radiology~and current medications noted below. Continue current treatment with the changes noted in the dictated addendum note Assessment: Vital Signs: Vital Signs Date Time Temp Pulse Resp B/P Pulse Ox O2 Delivery O2 Flow Rate FiO2 01/28/17 15:24 98.1 78 18 149/87 95 01/23/17 06:16 Room Air I&O Intake and Output 01/28/17 07:00 Intake Total 1080 ml Balance 1080 ml Intake Oral 1080 ml Current Medications: Meds: Current Medications Trimethoprim/ Sulfamethoxazole (Bactrim Ds) 1 tab 1X ONCE PO Last administered on 12/31/16 00:02; Start 12/30/16 at 23:55; Stop 12/30/16 at 23:56 ; Status DC Multi-Ingredient Ointment (Analgesic [place]) 1 jazlyn PRN QID PRN TP MUSCLE PAIN; Start 12/31/16 at 00:00 Al Hydroxide/Mg Hydroxide (Mylanta Plus Xs) 15 ml PRN AFTMEALHC PRN PO DYSPEPSIA; Start 12/31/16 at 00:00 Magnesium Hydroxide (Milk Of Magnesia) 2,400 mg PRN QHS PRN PO CONSTIPATION; Start 12/31/16 at 00:00 Alprazolam (Xanax) 0.5 mg TID PO Last administered on 01/12/17 08:46; Start at 09:00; Stop 01/12/17 at 14:01; Status DC Divalproex Sodium (Depakote Sprinkles) 250 mg BID PO Last administered on 19:34; Start 12/31/16 at 09:00 Donepezil HCl (Aricept) 10 mg QHS PO Last administered on 01/28/17 19:34; Start 12/31/16 at 21:00 Lorazepam (Ativan) 0.5 mg PRN Q4HRS PRN PO ANXIETY / AGITATION Last administered on 12/31/16 05:50; Start 12/31/16 at 00:00; Stop 12/31/16 at 06:19 ; Status DC Paroxetine HCl (Paxil) 20 mg DAILY PO Last administered on 01/03/17 08:27; Start 12/31/16 at 09:00; Stop 01/03/17 at 13:07; Status DC Quetiapine Fumarate (SEROquel) 25 mg TID PO Last administered on 01/13/17 14:11 ; Start 12/31/16 at 09:00; Stop 01/13/17 at 18:06; Status DC Temazepam (Restoril) 15 mg PRN QHS PRN PO INSOMNIA Last administered on 19:29; Start 12/31/16 at 00:00 Olanzapine (Zyprexa Zydis) 2.5 mg PRN Q2HR PRN PO PSYCHOSIS Last administered on 01/23/17 19:34; Start 12/31/16 at 06:30 Hydroxyzine HCl (Atarax) 50 mg PRN TID PRN PO ANXIETY Last administered on 01/27 04:12; Start 12/31/16 at 07:30 Lorazepam (Ativan) 0.5 mg DAILY IM Last administered on 01/04/17 08:41; Start 12/31/16 at 08:30; Stop 01/04/17 at 18:32; Status DC Haloperidol Lactate (Haldol) 5 mg DAILY IM Last administered on 01/04/17 08:40 ; Start 12/31/16 at 08:30; Stop 01/04/17 at 18:32; Status DC Acetaminophen (Tylenol) 650 mg PRN Q4HRS PRN PO PAIN / TEMP Last administered on 01/16/17 06:16; Start 12/31/16 at 09:15 Bisacodyl (Dulcolax Tab) 10 mg PRN QHS PRN PO CONSTIPATION; Start 12/31/16 at 09:15 Diphenhydramine HCl (Benadryl) 25 mg PRN Q8HRS PRN PO RASH; Start 12/31/16 at 09:15 Senna/Docusate Sodium (Senna Plus) 1 tab PRN QHS PRN PO CONSTIPATION Last administered on 01/17/17 19:20; Start 12/31/16 at 09:15 Lisinopril (Prinivil) 40 mg DAILY PO Last administered on 01/28/17 07:55; Start 12/31/16 at 09:30 Vitamin D (Vitamin D3) 50,000 unit WEEKLY PO Last administered on 01/22/17 09: 41; Start 01/08/17 at 09:00; Stop 03/10/17 at 08:59 Escitalopram Oxalate (Lexapro) 10 mg DAILY PO Last administered on 01/28/17 07 :55; Start 01/04/17 at 09:00 Buspirone HCl (Buspar) 5 mg BID PO Last administered on 01/10/17 09:28; Start 01/09/17 at 21:00; Stop 01/10/17 at 18:33; Status DC Buspirone HCl (Buspar) 10 mg BID PO Last administered on 01/12/17 08:44; Start 01/10/17 at 21:00; Stop 01/12/17 at 14:01; Status DC Alprazolam (Xanax) 0.25 mg QID PO Last administered on 01/21/17 16:36; Start 01/12/17 at 17:00; Stop 01/21/17 at 18:51; Status DC Buspirone HCl (Buspar) 10 mg TID PO Last administered on 01/28/17 19:33; Start 01/12/17 at 14:00 Alprazolam (Xanax) 0.25 mg 1X ONCE PO Last administered on 01/12/17 14:47; Start 01/12/17 at 14:30; Stop 01/12/17 at 14:31; Status DC Quetiapine Fumarate (SEROquel) 25 mg DAILY@14 PO Last administered on 01/16/17 14:58; Start 01/14/17 at 14:00; Stop 01/16/17 at 18:25; Status DC Quetiapine Fumarate (SEROquel) 37.5 mg BID@ PO Last administered on 08:42; Start 01/13/17 at 21:00; Stop 01/17/17 at 18:29; Status DC Ondansetron HCl (Zofran Odt) 4 mg PRN Q4HRS PRN PO NAUSEA/VOMITING Last administered on 01/16/17 09:38; Start 01/16/17 at 09:00 Quetiapine Fumarate (SEROquel) 25 mg DAILY@15 PO Last administered on 14:01; Start 01/17/17 at 15:00; Stop 01/17/17 at 18:29; Status DC Lorazepam (Ativan) 0.5 mg DAILY IV ; Start 01/17/17 at 11:00; Stop 01/17/17 at 11:20; Status DC Lorazepam (Ativan) 0.5 mg DAILY IM Last administered on 01/21/17 09:10; Start 01/17/17 at 11:00; Stop 01/21/17 at 18:36; Status DC Risperidone (Risperdal) 0.25 mg [id number] PO Last administered on 01/28/17 11:54; Start 01/18/17 at 09:00 Cefpodoxime Proxetil (Vantin) 200 mg BID PO Last administered on 01/20/17 08: 25; Start 01/18/17 at 12:30; Stop 01/20/17 at 17:34; Status DC Alprazolam (Xanax) 0.25 mg QID PO Last administered on 01/21/17 20:31; Start 01/21/17 at 21:00; Stop 01/21/17 at 22:00; Status DC Alprazolam (Xanax) 0.25 mg [id number] PO Last administered on 01/23/17 19:33; Start 01/22/17 at 09:00; Stop 01/23/17 at 22:01; Status DC Alprazolam (Xanax) 0.25 mg BID PO Last administered on 01/25/17 19:45; Start 01/24/17 at 09:00; Stop 01/25/17 at 22:00; Status DC Alprazolam (Xanax) 0.25 mg DAILY PO Last administered on 01/26/17 08:37; Start 01/26/17 at 09:00; Stop 01/26/17 at 20:01; Status DC Active Scripts Active Reported Senna S Tablet (Sennosides/Docusate Sodium) 1 Each Tablet 1 Tab PO PRN QHS PRN Tylenol (Acetaminophen) 325 Mg Tablet 650 Mg PO PRN Q4HRS PRN Lorazepam 0.5 Mg Tablet 0.5 Mg PO PRN Q4HRS PRN Bisacodyl 5 Mg Tablet.dr 10 Mg PO PRN QHS PRN Diphenhydramine Hcl 25 Mg Tablet 25 Mg PO PRN QHS PRN Temazepam 15 Mg Capsule 15 Mg PO PRN QHS PRN Depakote Sprinkle (Divalproex Sodium) 125 Mg Cap.sprink 250 Mg PO BID Benadryl (Diphenhydramine Hcl) 25 Mg Capsule 25 Mg PO PRN Q8HRS PRN Seroquel (Quetiapine Fumarate) 25 Mg Tablet 25 Mg PO TID Alprazolam 0.5 Mg Tablet 0.5 Mg PO TID Aricept (Donepezil Hcl) 10 Mg Tablet 10 Mg PO QHS Paroxetine Hcl 20 Mg Tablet 20 Mg PO DAILY Lisinopril 40 Mg Tablet 40 Mg PO DAILY Diagnosis: Problems: (1) Dementia with behavioral disturbance (2) Anxiety disorder (3) Dementia in Alzheimer's disease with delusions (4) Dementia in Alzheimer's disease with depression (5) Dementia, vascular, with delusions (6) Dementia, vascular, with depression (7) Impulse control disorder TIFFANIE SCOTT MD Jan 28, 2017 20:57
--- NOTE | 2017-01-28 22:39 | PN ---
DATE: 01/26/2017 PSYCHIATRIC PROGRESS NOTE This is a late entry of 01/26/2017 covers elements not covered in my initial note. Overall, the patient remains anxious, off and on, confused, forgetful, not aggressive questioning when she is going to leave addressed this with her in her room individually. REVIEW OF SYSTEMS: Ambulation impaired with a walker. No CV, , pulmonary, eye system symptoms on review. MENTAL STATUS EXAM: Oriented to herself. Insight, judgment, recent and remote memory, attention, concentration, fund of knowledge poor, consistent with her diagnosis mentioned in my initial note. PLAN: Continue psychotropics mentioned in my initial note. Adjust further as clinically indicated. MAN Matt SCOTT MD DR: ALE/amina JOB#: [id number] / [id number]
--- NOTE | 2017-01-28 22:42 | PN ---
DATE: 01/27/2017 PSYCHIATRIC PROGRESS NOTE This is a late entry of 01/27/2017 covers elements not covered in my initial note. SUBJECTIVE: The patient was staffed at a treatment team meeting with the entire inpatient daughter, Day attended. Reviewed the patient's history, diagnosis, progress, discharge plans at length. The patient has been calm, cooperative, confused, compliance with medications and assessment. Did wake up at 4:00 a.m. on 01/27/2017, looking for redirected. Appetite 50-75%, sleeping 7 hours scheduled. Ativan IM has been discontinued. REVIEW OF SYSTEMS: Ambulation impaired with a walker. No CV, , pulmonary, eye system symptoms on review. MENTAL STATUS EXAM: Oriented to herself. Insight, judgment, recent memory is impaired. Language function intact. Attention span short. Mood and affect, lability is improved. LABORATORY DATA: Reviewed. IMPRESSION: Unchanged from initial note. PLAN: Continue current psychotropics. Adjust further as clinically indicated. MAN Matt SCOTT MD DR: ALE/amina JOB#: [id number] / [id number]
[2017-01-29 06:26] VITALS: BP 178/80
[2017-01-29 07:10] LABS: ALBUMIN 2.9 g/dL (3.4-5.0); ALBUMIN/GLOBULIN RATIO 0.8 (1.0-1.7); ALK PHOS 78 U/L (46-116); ALT (SGPT) 24 U/L (14-59); ANION GAP 7 (6-14); AST (SGOT) 21 U/L (15-37); BLOOD UREA NITROGEN 15 mg/dL (7-20); BUN/CREATININE RATIO 21 (6-20); CALCIUM 8.5 mg/dL (8.5-10.1); CARBON DIOXIDE 31 mmol/L (21-32); CHLORIDE 106 mmol/L (98-107); CREATININE 0.7 mg/dL (0.6-1.0); GFR 79.5; GLUCOSE 87 mg/dL (70-99); POTASSIUM 3.6 mmol/L (3.5-5.1); SODIUM 144 mmol/L (136-145); TOTAL BILIRUBIN 0.4 mg/dL (0.2-1.0); TOTAL PROTEIN 6.5 g/dL (6.4-8.2); VAL ACID 40 mcg/mL (50-100)
[2017-01-29 07:13] LABS: BASO # 0.1 x10^3/uL (0.0-0.2); BASO % 1 % (0-3); EOS # 0.2 x10^3/uL (0.0-0.7); EOS % 3 % (0-3); HEMATOCRIT 37.9 % (36.0-47.0); HEMOGLOBIN 12.4 g/dL (12.0-15.5); LYMPH % 35 % (24-48); MEAN CORPUSCULAR HEMOGLOBIN 28 pg (25-35); MEAN CORPUSCULAR HGB CONC 33 g/dL (31-37); MEAN CORPUSCULAR VOLUME 87 fL (79-100); MONO # 0.5 x10^3/uL (0.0-1.1); MONO % 10 % (0-9); NEUT % 52 % (31-73); PLATELET COUNT 214 x10^3/uL (140-400); RED BLOOD COUNT 4.37 x10^6/uL (3.50-5.40); RED CELL DISTRIBUTION WIDTH 14.9 % (11.5-14.5); WHITE BLOOD COUNT 5.7 x10^3/uL (4.0-11.0)
[2017-01-29] MEDS: DIVALPROEX 125 MG CAP.SPRINK PO SCH ×2 (07:52→20:15)
[2017-01-29] MEDS: LISINOPRIL 20 MG TABLET PO SCH (07:52)
[2017-01-29] MEDS: risperiDONE 0.25 MG TABLET. PO SCH ×2 (07:52→12:27)
[2017-01-29] MEDS: ESCITALOPRAM 10 MG TABLET. PO SCH (07:52)
[2017-01-29] MEDS: busPIRone 10 MG TABLET. PO SCH ×3 (07:52→20:15)
[2017-01-29] MEDS: CHOLECALCIFEROL (VITAMIN D3) 50,000 UNIT CAPSULE PO SCH (07:53)
[2017-01-29] MEDS: AMLODIPINE BESYLATE 2.5 MG TABLET PO SCH (12:26)
[2017-01-29 16:10] VITALS: BP 130/75
[2017-01-29] MEDS: DONEPEZIL HCL 10 MG TABLET PO SCH (20:15)
--- NOTE | 2017-01-29 21:07 | PDOC ---
Exam Ab Demential Exam: Ab Note: Please also refer to the separate dictated note~for this date of service dictated separately.~Patient seen individually. Discussed the patient with Nursing staff reviewed the chart.~Reviewed interim history and current functioning. Reviewed vital signs,~Labs/ Radiology~and current medications noted below. Continue current treatment with the changes noted in the dictated addendum note Assessment: Vital Signs: Vital Signs Date Time Temp Pulse Resp B/P Pulse Ox O2 Delivery O2 Flow Rate FiO2 01/29/17 16:10 97.8 78 16 130/75 93 01/29/17 06:26 Room Air I&O Intake and Output 01/29/17 07:00 Intake Total 1080 ml Balance 1080 ml Intake Oral 1080 ml # Bowel Movements 1 Labs: Laboratory Tests Test 01/29/17 06:33 White Blood Count 5.7x10^3/uL (4.0-11.0) Red Blood Count 4.37x10^6/uL (3.50-5.40) Hemoglobin 12.4g/dL (12.0-15.5) Hematocrit 37.9% (36.0-47.0) Mean Corpuscular Volume 87fL (79-100) Mean Corpuscular Hemoglobin 28pg (25-35) Mean Corpuscular Hemoglobin Concent 33g/dL (31-37) Red Cell Distribution Width 14.9% (11.5-14.5) H Platelet Count 214x10^3/uL (140-400) Neutrophils (%) (Auto) 52% (31-73) Lymphocytes (%) (Auto) 35% (24-48) Monocytes (%) (Auto) 10% (0-9) H Eosinophils (%) (Auto) 3% (0-3) Basophils (%) (Auto) 1% (0-3) Neutrophils # (Auto) 3.0x10^3uL (1.8-7.7) Lymphocytes # (Auto) 2.0x10^3/uL (1.0-4.8) Monocytes # (Auto) 0.5x10^3/uL (0.0-1.1) Eosinophils # (Auto) 0.2x10^3/uL (0.0-0.7) Basophils # (Auto) 0.1x10^3/uL (0.0-0.2) Sodium Level 144mmol/L (136-145) Potassium Level 3.6mmol/L (3.5-5.1) Chloride Level 106mmol/L (98-107) Carbon Dioxide Level 31mmol/L (21-32) Anion Gap 7 (6-14) Blood Urea Nitrogen 15mg/dL (7-20) Creatinine 0.7mg/dL (0.6-1.0) Estimated GFR (Cockcroft-Gault) 79.5 BUN/Creatinine Ratio 21 (6-20) H Glucose Level 87mg/dL (70-99) Calcium Level 8.5mg/dL (8.5-10.1) Total Bilirubin 0.4mg/dL (0.2-1.0) Aspartate Amino Transferase (AST) 21U/L (15-37) Alanine Aminotransferase (ALT) 24U/L (14-59) Alkaline Phosphatase 78U/L (46-116) Total Protein 6.5g/dL (6.4-8.2) Albumin 2.9g/dL (3.4-5.0) L Albumin/Globulin Ratio 0.8 (1.0-1.7) L Valproic Acid Level 40mcg/mL (50-100) L Valproic Acid Last Dose Date 01/28/17 Valproic Acid Last Dose Time 2100 Current Medications: Meds: Current Medications Trimethoprim/ Sulfamethoxazole (Bactrim Ds) 1 tab 1X ONCE PO Last administered on 12/31/16 00:02; Start 12/30/16 at 23:55; Stop 12/30/16 at 23:56 ; Status DC Multi-Ingredient Ointment (Analgesic [place]) 1 jazlyn PRN QID PRN TP MUSCLE PAIN; Start 12/31/16 at 00:00 Al Hydroxide/Mg Hydroxide (Mylanta Plus Xs) 15 ml PRN AFTMEALHC PRN PO DYSPEPSIA; Start 12/31/16 at 00:00 Magnesium Hydroxide (Milk Of Magnesia) 2,400 mg PRN QHS PRN PO CONSTIPATION; Start 12/31/16 at 00:00 Alprazolam (Xanax) 0.5 mg TID PO Last administered on 01/12/17 08:46; Start at 09:00; Stop 01/12/17 at 14:01; Status DC Divalproex Sodium (Depakote Sprinkles) 250 mg BID PO Last administered on 20:15; Start 12/31/16 at 09:00 Donepezil HCl (Aricept) 10 mg QHS PO Last administered on 01/29/17 20:15; Start 12/31/16 at 21:00 Lorazepam (Ativan) 0.5 mg PRN Q4HRS PRN PO ANXIETY / AGITATION Last administered on 12/31/16 05:50; Start 12/31/16 at 00:00; Stop 12/31/16 at 06:19 ; Status DC Paroxetine HCl (Paxil) 20 mg DAILY PO Last administered on 01/03/17 08:27; Start 12/31/16 at 09:00; Stop 01/03/17 at 13:07; Status DC Quetiapine Fumarate (SEROquel) 25 mg TID PO Last administered on 01/13/17 14:11 ; Start 12/31/16 at 09:00; Stop 01/13/17 at 18:06; Status DC Temazepam (Restoril) 15 mg PRN QHS PRN PO INSOMNIA Last administered on 19:29; Start 12/31/16 at 00:00 Olanzapine (Zyprexa Zydis) 2.5 mg PRN Q2HR PRN PO PSYCHOSIS Last administered on 01/23/17 19:34; Start 12/31/16 at 06:30 Hydroxyzine HCl (Atarax) 50 mg PRN TID PRN PO ANXIETY Last administered on 01/27 04:12; Start 12/31/16 at 07:30 Lorazepam (Ativan) 0.5 mg DAILY IM Last administered on 01/04/17 08:41; Start 12/31/16 at 08:30; Stop 01/04/17 at 18:32; Status DC Haloperidol Lactate (Haldol) 5 mg DAILY IM Last administered on 01/04/17 08:40 ; Start 12/31/16 at 08:30; Stop 01/04/17 at 18:32; Status DC Acetaminophen (Tylenol) 650 mg PRN Q4HRS PRN PO PAIN / TEMP Last administered on 01/16/17 06:16; Start 12/31/16 at 09:15 Bisacodyl (Dulcolax Tab) 10 mg PRN QHS PRN PO CONSTIPATION; Start 12/31/16 at 09:15 Diphenhydramine HCl (Benadryl) 25 mg PRN Q8HRS PRN PO RASH; Start 12/31/16 at 09:15 Senna/Docusate Sodium (Senna Plus) 1 tab PRN QHS PRN PO CONSTIPATION Last administered on 01/17/17 19:20; Start 12/31/16 at 09:15 Lisinopril (Prinivil) 40 mg DAILY PO Last administered on 01/29/17 07:52; Start 12/31/16 at 09:30 Vitamin D (Vitamin D3) 50,000 unit WEEKLY PO Last administered on 01/29/17 07: 53; Start 01/08/17 at 09:00; Stop 03/10/17 at 08:59 Escitalopram Oxalate (Lexapro) 10 mg DAILY PO Last administered on 01/29/17 07 :52; Start 01/04/17 at 09:00 Buspirone HCl (Buspar) 5 mg BID PO Last administered on 01/10/17 09:28; Start 01/09/17 at 21:00; Stop 01/10/17 at 18:33; Status DC Buspirone HCl (Buspar) 10 mg BID PO Last administered on 01/12/17 08:44; Start 01/10/17 at 21:00; Stop 01/12/17 at 14:01; Status DC Alprazolam (Xanax) 0.25 mg QID PO Last administered on 01/21/17 16:36; Start 01/12/17 at 17:00; Stop 01/21/17 at 18:51; Status DC Buspirone HCl (Buspar) 10 mg TID PO Last administered on 01/29/17 20:15; Start 01/12/17 at 14:00 Alprazolam (Xanax) 0.25 mg 1X ONCE PO Last administered on 01/12/17 14:47; Start 01/12/17 at 14:30; Stop 01/12/17 at 14:31; Status DC Quetiapine Fumarate (SEROquel) 25 mg DAILY@14 PO Last administered on 01/16/17 14:58; Start 01/14/17 at 14:00; Stop 01/16/17 at 18:25; Status DC Quetiapine Fumarate (SEROquel) 37.5 mg BID@09,21 PO Last administered on 08:42; Start 01/13/17 at 21:00; Stop 01/17/17 at 18:29; Status DC Ondansetron HCl (Zofran Odt) 4 mg PRN Q4HRS PRN PO NAUSEA/VOMITING Last administered on 01/16/17 09:38; Start 01/16/17 at 09:00 Quetiapine Fumarate (SEROquel) 25 mg DAILY@15 PO Last administered on 14:01; Start 01/17/17 at 15:00; Stop 01/17/17 at 18:29; Status DC Lorazepam (Ativan) 0.5 mg DAILY IV ; Start 01/17/17 at 11:00; Stop 01/17/17 at 11:20; Status DC Lorazepam (Ativan) 0.5 mg DAILY IM Last administered on 01/21/17 09:10; Start 01/17/17 at 11:00; Stop 01/21/17 at 18:36; Status DC Risperidone (Risperdal) 0.25 mg [id number] PO Last administered on 01/29/17 12:27; Start 01/18/17 at 09:00 Cefpodoxime Proxetil (Vantin) 200 mg BID PO Last administered on 01/20/17 08: 25; Start 01/18/17 at 12:30; Stop 01/20/17 at 17:34; Status DC Alprazolam (Xanax) 0.25 mg QID PO Last administered on 01/21/17 20:31; Start 01/21/17 at 21:00; Stop 01/21/17 at 22:00; Status DC Alprazolam (Xanax) 0.25 mg [id number] PO Last administered on 01/23/17 19:33; Start 01/22/17 at 09:00; Stop 01/23/17 at 22:01; Status DC Alprazolam (Xanax) 0.25 mg BID PO Last administered on 01/25/17 19:45; Start 01/24/17 at 09:00; Stop 01/25/17 at 22:00; Status DC Alprazolam (Xanax) 0.25 mg DAILY PO Last administered on 01/26/17 08:37; Start 01/26/17 at 09:00; Stop 01/26/17 at 20:01; Status DC Amlodipine Besylate (Norvasc) 2.5 mg DAILY PO Last administered on 01/29/17 12 :26; Start 01/29/17 at 10:15 Active Scripts Active Reported Senna S Tablet (Sennosides/Docusate Sodium) 1 Each Tablet 1 Tab PO PRN QHS PRN Tylenol (Acetaminophen) 325 Mg Tablet 650 Mg PO PRN Q4HRS PRN Lorazepam 0.5 Mg Tablet 0.5 Mg PO PRN Q4HRS PRN Bisacodyl 5 Mg Tablet.dr 10 Mg PO PRN QHS PRN Diphenhydramine Hcl 25 Mg Tablet 25 Mg PO PRN QHS PRN Temazepam 15 Mg Capsule 15 Mg PO PRN QHS PRN Depakote Sprinkle (Divalproex Sodium) 125 Mg Cap.sprink 250 Mg PO BID Benadryl (Diphenhydramine Hcl) 25 Mg Capsule 25 Mg PO PRN Q8HRS PRN Seroquel (Quetiapine Fumarate) 25 Mg Tablet 25 Mg PO TID Alprazolam 0.5 Mg Tablet 0.5 Mg PO TID Aricept (Donepezil Hcl) 10 Mg Tablet 10 Mg PO QHS Paroxetine Hcl 20 Mg Tablet 20 Mg PO DAILY Lisinopril 40 Mg Tablet 40 Mg PO DAILY Diagnosis: Problems: (1) Dementia with behavioral disturbance (2) Anxiety disorder (3) Dementia in Alzheimer's disease with delusions (4) Dementia in Alzheimer's disease with depression (5) Dementia, vascular, with delusions (6) Dementia, vascular, with depression (7) Impulse control disorder TIFFANIE SCOTT MD Jan 29, 2017 21:07
[2017-01-30 06:59] VITALS: BP 157/79
[2017-01-30] MEDS: ESCITALOPRAM 10 MG TABLET. PO SCH (07:46)
[2017-01-30] MEDS: AMLODIPINE BESYLATE 2.5 MG TABLET PO SCH (07:46)
[2017-01-30] MEDS: DIVALPROEX 125 MG CAP.SPRINK PO SCH ×2 (07:46→20:52)
[2017-01-30] MEDS: busPIRone 10 MG TABLET. PO SCH ×3 (07:47→20:52)
[2017-01-30] MEDS: risperiDONE 0.25 MG TABLET. PO SCH ×2 (07:47→12:19)
[2017-01-30] MEDS: LISINOPRIL 20 MG TABLET PO SCH (07:47)
--- NOTE | 2017-01-30 15:10 | PN ---
DATE: 01/28/2017 PSYCHIATRIC PROGRESS NOTE This is a late entry for 01/28/2017, and covers elements not covered in my initial note. Overall, the patient has been more little more social with other patients, a little paranoid previous night, but slept well. REVIEW OF SYSTEMS: Ambulation impaired with a walker. No CV, , pulmonary, eye system symptoms on review. MENTAL STATUS EXAM: Oriented to herself and situation. Speech coherent, abstraction fair, computation impaired, language function intact, short term memory is impaired. No active suicidal or homicidal ideation. LABORATORY DATA: Reviewed. IMPRESSION: Unchanged from initial note. PLAN: Continue current psychotropics with a tentative transition to a lower level of care on Tuesday. MAN Matt SCOTT MD DR: ALE/amina JOB#: [id number] / [id number]
[2017-01-30 17:02] VITALS: BP 181/96
--- NOTE | 2017-01-30 17:43 | PN ---
DATE: 01/29/2017 PSYCHIATRIC PROGRESS NOTE This is late entry of 01/29/2017, covers elements not covered in my initial note. SUBJECTIVE: Overall, per nursing report, the patient is doing reasonably well, little paranoid at times, anxious with short-term memory deficits, but improving. REVIEW OF SYSTEMS: Ambulation impaired with a walker. No CV, , pulmonary, eye, ENT system symptoms on review. MENTAL STATUS EXAMINATION: Oriented to herself and situation. Speech coherent, little anxious, repetitive and asking about discharge plans. Abstraction fair. Computation impaired. Memory is impaired. No active suicidal or homicidal ideation. LABORATORY DATA: Reviewed. IMPRESSION: Unchanged from initial note. PLAN: Continue current psychotropics. Adjust as clinically indicated. MAN Matt SCOTT MD DR: ALE/amina JOB#: [id number] / [id number]
[2017-01-30] MEDS: DONEPEZIL HCL 10 MG TABLET PO SCH (20:52)
--- NOTE | 2017-01-30 20:57 | PDOC ---
Exam Ab Demential Exam: Ab Note: Please also refer to the separate dictated note~for this date of service dictated separately.~Patient seen individually. Discussed the patient with Nursing staff reviewed the chart.~Reviewed interim history and current functioning. Reviewed vital signs,~Labs/ Radiology~and current medications noted below. Continue current treatment with the changes noted in the dictated addendum note Assessment: Vital Signs: Vital Signs Date Time Temp Pulse Resp B/P Pulse Ox O2 Delivery O2 Flow Rate FiO2 01/30/17 17:02 97.7 47 16 181/96 94 01/29/17 06:26 Room Air I&O Intake and Output 01/30/17 07:00 Intake Total 980 ml Balance 980 ml Intake Oral 980 ml Current Medications: Meds: Current Medications Trimethoprim/ Sulfamethoxazole (Bactrim Ds) 1 tab 1X ONCE PO Last administered on 12/31/16 00:02; Start 12/30/16 at 23:55; Stop 12/30/16 at 23:56 ; Status DC Multi-Ingredient Ointment (Analgesic [place]) 1 jazlyn PRN QID PRN TP MUSCLE PAIN; Start 12/31/16 at 00:00 Al Hydroxide/Mg Hydroxide (Mylanta Plus Xs) 15 ml PRN AFTMEALHC PRN PO DYSPEPSIA; Start 12/31/16 at 00:00 Magnesium Hydroxide (Milk Of Magnesia) 2,400 mg PRN QHS PRN PO CONSTIPATION; Start 12/31/16 at 00:00 Alprazolam (Xanax) 0.5 mg TID PO Last administered on 01/12/17 08:46; Start at 09:00; Stop 01/12/17 at 14:01; Status DC Divalproex Sodium (Depakote Sprinkles) 250 mg BID PO Last administered on 20:52; Start 12/31/16 at 09:00 Donepezil HCl (Aricept) 10 mg QHS PO Last administered on 01/30/17 20:52; Start 12/31/16 at 21:00 Lorazepam (Ativan) 0.5 mg PRN Q4HRS PRN PO ANXIETY / AGITATION Last administered on 12/31/16 05:50; Start 12/31/16 at 00:00; Stop 12/31/16 at 06:19 ; Status DC Paroxetine HCl (Paxil) 20 mg DAILY PO Last administered on 01/03/17 08:27; Start 12/31/16 at 09:00; Stop 01/03/17 at 13:07; Status DC Quetiapine Fumarate (SEROquel) 25 mg TID PO Last administered on 01/13/17 14:11 ; Start 12/31/16 at 09:00; Stop 01/13/17 at 18:06; Status DC Temazepam (Restoril) 15 mg PRN QHS PRN PO INSOMNIA Last administered on 19:29; Start 12/31/16 at 00:00 Olanzapine (Zyprexa Zydis) 2.5 mg PRN Q2HR PRN PO PSYCHOSIS Last administered on 01/23/17 19:34; Start 12/31/16 at 06:30 Hydroxyzine HCl (Atarax) 50 mg PRN TID PRN PO ANXIETY Last administered on 01/27 04:12; Start 12/31/16 at 07:30 Lorazepam (Ativan) 0.5 mg DAILY IM Last administered on 01/04/17 08:41; Start 12/31/16 at 08:30; Stop 01/04/17 at 18:32; Status DC Haloperidol Lactate (Haldol) 5 mg DAILY IM Last administered on 01/04/17 08:40 ; Start 12/31/16 at 08:30; Stop 01/04/17 at 18:32; Status DC Acetaminophen (Tylenol) 650 mg PRN Q4HRS PRN PO PAIN / TEMP Last administered on 01/16/17 06:16; Start 12/31/16 at 09:15 Bisacodyl (Dulcolax Tab) 10 mg PRN QHS PRN PO CONSTIPATION; Start 12/31/16 at 09:15 Diphenhydramine HCl (Benadryl) 25 mg PRN Q8HRS PRN PO RASH; Start 12/31/16 at 09:15 Senna/Docusate Sodium (Senna Plus) 1 tab PRN QHS PRN PO CONSTIPATION Last administered on 01/17/17 19:20; Start 12/31/16 at 09:15 Lisinopril (Prinivil) 40 mg DAILY PO Last administered on 01/30/17 07:47; Start 12/31/16 at 09:30 Vitamin D (Vitamin D3) 50,000 unit WEEKLY PO Last administered on 01/29/17 07: 53; Start 01/08/17 at 09:00; Stop 03/10/17 at 08:59 Escitalopram Oxalate (Lexapro) 10 mg DAILY PO Last administered on 01/30/17 07 :46; Start 01/04/17 at 09:00 Buspirone HCl (Buspar) 5 mg BID PO Last administered on 01/10/17 09:28; Start 01/09/17 at 21:00; Stop 01/10/17 at 18:33; Status DC Buspirone HCl (Buspar) 10 mg BID PO Last administered on 01/12/17 08:44; Start 01/10/17 at 21:00; Stop 01/12/17 at 14:01; Status DC Alprazolam (Xanax) 0.25 mg QID PO Last administered on 01/21/17 16:36; Start 01/12/17 at 17:00; Stop 01/21/17 at 18:51; Status DC Buspirone HCl (Buspar) 10 mg TID PO Last administered on 01/30/17 20:52; Start 01/12/17 at 14:00 Alprazolam (Xanax) 0.25 mg 1X ONCE PO Last administered on 01/12/17 14:47; Start 01/12/17 at 14:30; Stop 01/12/17 at 14:31; Status DC Quetiapine Fumarate (SEROquel) 25 mg DAILY@14 PO Last administered on 01/16/17 14:58; Start 01/14/17 at 14:00; Stop 01/16/17 at 18:25; Status DC Quetiapine Fumarate (SEROquel) 37.5 mg BID@ PO Last administered on 08:42; Start 01/13/17 at 21:00; Stop 01/17/17 at 18:29; Status DC Ondansetron HCl (Zofran Odt) 4 mg PRN Q4HRS PRN PO NAUSEA/VOMITING Last administered on 01/16/17 09:38; Start 01/16/17 at 09:00 Quetiapine Fumarate (SEROquel) 25 mg DAILY@15 PO Last administered on 14:01; Start 01/17/17 at 15:00; Stop 01/17/17 at 18:29; Status DC Lorazepam (Ativan) 0.5 mg DAILY IV ; Start 01/17/17 at 11:00; Stop 01/17/17 at 11:20; Status DC Lorazepam (Ativan) 0.5 mg DAILY IM Last administered on 01/21/17 09:10; Start 01/17/17 at 11:00; Stop 01/21/17 at 18:36; Status DC Risperidone (Risperdal) 0.25 mg [id number] PO Last administered on 01/30/17 12:19; Start 01/18/17 at 09:00 Cefpodoxime Proxetil (Vantin) 200 mg BID PO Last administered on 01/20/17 08: 25; Start 01/18/17 at 12:30; Stop 01/20/17 at 17:34; Status DC Alprazolam (Xanax) 0.25 mg QID PO Last administered on 01/21/17 20:31; Start 01/21/17 at 21:00; Stop 01/21/17 at 22:00; Status DC Alprazolam (Xanax) 0.25 mg [id number] PO Last administered on 01/23/17 19:33; Start 01/22/17 at 09:00; Stop 01/23/17 at 22:01; Status DC Alprazolam (Xanax) 0.25 mg BID PO Last administered on 01/25/17 19:45; Start 01/24/17 at 09:00; Stop 01/25/17 at 22:00; Status DC Alprazolam (Xanax) 0.25 mg DAILY PO Last administered on 01/26/17 08:37; Start 01/26/17 at 09:00; Stop 01/26/17 at 20:01; Status DC Amlodipine Besylate (Norvasc) 2.5 mg DAILY PO Last administered on 01/30/17 07 :46; Start 01/29/17 at 10:15 Active Scripts Active Reported Senna S Tablet (Sennosides/Docusate Sodium) 1 Each Tablet 1 Tab PO PRN QHS PRN Tylenol (Acetaminophen) 325 Mg Tablet 650 Mg PO PRN Q4HRS PRN Lorazepam 0.5 Mg Tablet 0.5 Mg PO PRN Q4HRS PRN Bisacodyl 5 Mg Tablet.dr 10 Mg PO PRN QHS PRN Diphenhydramine Hcl 25 Mg Tablet 25 Mg PO PRN QHS PRN Temazepam 15 Mg Capsule 15 Mg PO PRN QHS PRN Depakote Sprinkle (Divalproex Sodium) 125 Mg Cap.sprink 250 Mg PO BID Benadryl (Diphenhydramine Hcl) 25 Mg Capsule 25 Mg PO PRN Q8HRS PRN Seroquel (Quetiapine Fumarate) 25 Mg Tablet 25 Mg PO TID Alprazolam 0.5 Mg Tablet 0.5 Mg PO TID Aricept (Donepezil Hcl) 10 Mg Tablet 10 Mg PO QHS Paroxetine Hcl 20 Mg Tablet 20 Mg PO DAILY Lisinopril 40 Mg Tablet 40 Mg PO DAILY Diagnosis: Problems: (1) Dementia with behavioral disturbance (2) Anxiety disorder (3) Dementia in Alzheimer's disease with delusions (4) Dementia in Alzheimer's disease with depression (5) Dementia, vascular, with delusions (6) Dementia, vascular, with depression (7) Impulse control disorder TIFFANIE SCOTT MD Jan 30, 2017 20:57
[2017-01-30 22:00] VITALS: BP 196/65
[2017-01-31 06:53] VITALS: BP 164/81
[2017-01-31] MEDS: ESCITALOPRAM 10 MG TABLET. PO SCH (08:30)
[2017-01-31] MEDS: risperiDONE 0.25 MG TABLET. PO SCH ×2 (08:30→14:31)
[2017-01-31] MEDS: busPIRone 10 MG TABLET. PO SCH ×3 (08:30→19:44)
[2017-01-31] MEDS: DIVALPROEX 125 MG CAP.SPRINK PO SCH ×2 (08:30→19:44)
[2017-01-31] MEDS: AMLODIPINE BESYLATE 2.5 MG TABLET PO SCH (08:31)
[2017-01-31] MEDS: LISINOPRIL 20 MG TABLET PO SCH (08:31)
--- NOTE | 2017-01-31 15:30 | PN ---
DATE: 01/30/2017 PSYCHIATRIC PROGRESS NOTE This is late entry of 01/30/2017, covers elements not covered in my initial note. SUBJECTIVE: The patient is compliant with her medication, remains confused, forgetful, attempting to console another demented patient who was quite aggressive. REVIEW OF SYSTEMS: Ambulation impaired with a walker. No CV, , pulmonary, eye, ENT system symptoms on review. MENTAL STATUS EXAMINATION: Oriented to herself. Insight, judgment, recent and remote memory, attention, concentration, fund of knowledge poor, consistent with her diagnosis mentioned in my initial note. PLAN: Continue current psychotropics. Adjust further as clinically indicated. TIFFANIE SCOTT MD DR: ALE/amina JOB#: [id number] / [id number]
[2017-01-31 16:27] VITALS: BP 132/77
[2017-01-31] MEDS: DONEPEZIL HCL 10 MG TABLET PO SCH (19:44)
--- NOTE | 2017-01-31 23:43 | PDOC ---
Exam Ab Demential Exam: Ab Note: Please also refer to the separate dictated note~for this date of service dictated separately.~Patient seen individually. Discussed the patient with Nursing staff reviewed the chart.~Reviewed interim history and current functioning. Reviewed vital signs,~Labs/ Radiology~and current medications noted below. Continue current treatment with the changes noted in the dictated addendum note Assessment: Vital Signs: Vital Signs Date Time Temp Pulse Resp B/P Pulse Ox O2 Delivery O2 Flow Rate FiO2 01/31/17 16:27 98.4 74 20 132/77 97 01/29/17 06:26 Room Air I&O Intake and Output 01/31/17 07:00 Intake Total 540 ml Balance 540 ml Intake Oral 540 ml Current Medications: Meds: Current Medications Trimethoprim/ Sulfamethoxazole (Bactrim Ds) 1 tab 1X ONCE PO Last administered on 12/31/16 00:02; Start 12/30/16 at 23:55; Stop 12/30/16 at 23:56 ; Status DC Multi-Ingredient Ointment (Analgesic [place]) 1 jazlyn PRN QID PRN TP MUSCLE PAIN; Start 12/31/16 at 00:00 Al Hydroxide/Mg Hydroxide (Mylanta Plus Xs) 15 ml PRN AFTMEALHC PRN PO DYSPEPSIA; Start 12/31/16 at 00:00 Magnesium Hydroxide (Milk Of Magnesia) 2,400 mg PRN QHS PRN PO CONSTIPATION; Start 12/31/16 at 00:00 Alprazolam (Xanax) 0.5 mg TID PO Last administered on 01/12/17 08:46; Start at 09:00; Stop 01/12/17 at 14:01; Status DC Divalproex Sodium (Depakote Sprinkles) 250 mg BID PO Last administered on 19:44; Start 12/31/16 at 09:00 Donepezil HCl (Aricept) 10 mg QHS PO Last administered on 01/31/17 19:44; Start 12/31/16 at 21:00 Lorazepam (Ativan) 0.5 mg PRN Q4HRS PRN PO ANXIETY / AGITATION Last administered on 12/31/16 05:50; Start 12/31/16 at 00:00; Stop 12/31/16 at 06:19 ; Status DC Paroxetine HCl (Paxil) 20 mg DAILY PO Last administered on 01/03/17 08:27; Start 12/31/16 at 09:00; Stop 01/03/17 at 13:07; Status DC Quetiapine Fumarate (SEROquel) 25 mg TID PO Last administered on 01/13/17 14:11 ; Start 12/31/16 at 09:00; Stop 01/13/17 at 18:06; Status DC Temazepam (Restoril) 15 mg PRN QHS PRN PO INSOMNIA Last administered on 19:29; Start 12/31/16 at 00:00 Olanzapine (Zyprexa Zydis) 2.5 mg PRN Q2HR PRN PO PSYCHOSIS Last administered on 01/23/17 19:34; Start 12/31/16 at 06:30 Hydroxyzine HCl (Atarax) 50 mg PRN TID PRN PO ANXIETY Last administered on 01/27 04:12; Start 12/31/16 at 07:30 Lorazepam (Ativan) 0.5 mg DAILY IM Last administered on 01/04/17 08:41; Start 12/31/16 at 08:30; Stop 01/04/17 at 18:32; Status DC Haloperidol Lactate (Haldol) 5 mg DAILY IM Last administered on 01/04/17 08:40 ; Start 12/31/16 at 08:30; Stop 01/04/17 at 18:32; Status DC Acetaminophen (Tylenol) 650 mg PRN Q4HRS PRN PO PAIN / TEMP Last administered on 01/16/17 06:16; Start 12/31/16 at 09:15 Bisacodyl (Dulcolax Tab) 10 mg PRN QHS PRN PO CONSTIPATION; Start 12/31/16 at 09:15 Diphenhydramine HCl (Benadryl) 25 mg PRN Q8HRS PRN PO RASH; Start 12/31/16 at 09:15 Senna/Docusate Sodium (Senna Plus) 1 tab PRN QHS PRN PO CONSTIPATION Last administered on 01/17/17 19:20; Start 12/31/16 at 09:15 Lisinopril (Prinivil) 40 mg DAILY PO Last administered on 01/31/17 08:31; Start 12/31/16 at 09:30 Vitamin D (Vitamin D3) 50,000 unit WEEKLY PO Last administered on 01/29/17 07: 53; Start 01/08/17 at 09:00; Stop 03/10/17 at 08:59 Escitalopram Oxalate (Lexapro) 10 mg DAILY PO Last administered on 01/31/17 08 :30; Start 01/04/17 at 09:00 Buspirone HCl (Buspar) 5 mg BID PO Last administered on 01/10/17 09:28; Start 01/09/17 at 21:00; Stop 01/10/17 at 18:33; Status DC Buspirone HCl (Buspar) 10 mg BID PO Last administered on 01/12/17 08:44; Start 01/10/17 at 21:00; Stop 01/12/17 at 14:01; Status DC Alprazolam (Xanax) 0.25 mg QID PO Last administered on 01/21/17 16:36; Start 01/12/17 at 17:00; Stop 01/21/17 at 18:51; Status DC Buspirone HCl (Buspar) 10 mg TID PO Last administered on 01/31/17 19:44; Start 01/12/17 at 14:00 Alprazolam (Xanax) 0.25 mg 1X ONCE PO Last administered on 01/12/17 14:47; Start 01/12/17 at 14:30; Stop 01/12/17 at 14:31; Status DC Quetiapine Fumarate (SEROquel) 25 mg DAILY@14 PO Last administered on 01/16/17 14:58; Start 01/14/17 at 14:00; Stop 01/16/17 at 18:25; Status DC Quetiapine Fumarate (SEROquel) 37.5 mg BID@ PO Last administered on 08:42; Start 01/13/17 at 21:00; Stop 01/17/17 at 18:29; Status DC Ondansetron HCl (Zofran Odt) 4 mg PRN Q4HRS PRN PO NAUSEA/VOMITING Last administered on 01/16/17 09:38; Start 01/16/17 at 09:00 Quetiapine Fumarate (SEROquel) 25 mg DAILY@15 PO Last administered on 14:01; Start 01/17/17 at 15:00; Stop 01/17/17 at 18:29; Status DC Lorazepam (Ativan) 0.5 mg DAILY IV ; Start 01/17/17 at 11:00; Stop 01/17/17 at 11:20; Status DC Lorazepam (Ativan) 0.5 mg DAILY IM Last administered on 01/21/17 09:10; Start 01/17/17 at 11:00; Stop 01/21/17 at 18:36; Status DC Risperidone (Risperdal) 0.25 mg [id number] PO Last administered on 01/31/17 14:31; Start 01/18/17 at 09:00 Cefpodoxime Proxetil (Vantin) 200 mg BID PO Last administered on 01/20/17 08: 25; Start 01/18/17 at 12:30; Stop 01/20/17 at 17:34; Status DC Alprazolam (Xanax) 0.25 mg QID PO Last administered on 01/21/17 20:31; Start 01/21/17 at 21:00; Stop 01/21/17 at 22:00; Status DC Alprazolam (Xanax) 0.25 mg [id number] PO Last administered on 01/23/17 19:33; Start 01/22/17 at 09:00; Stop 01/23/17 at 22:01; Status DC Alprazolam (Xanax) 0.25 mg BID PO Last administered on 01/25/17 19:45; Start 01/24/17 at 09:00; Stop 01/25/17 at 22:00; Status DC Alprazolam (Xanax) 0.25 mg DAILY PO Last administered on 01/26/17 08:37; Start 01/26/17 at 09:00; Stop 01/26/17 at 20:01; Status DC Amlodipine Besylate (Norvasc) 2.5 mg DAILY PO Last administered on 01/31/17 08 :31; Start 01/29/17 at 10:15 Active Scripts Active Reported Senna S Tablet (Sennosides/Docusate Sodium) 1 Each Tablet 1 Tab PO PRN QHS PRN Tylenol (Acetaminophen) 325 Mg Tablet 650 Mg PO PRN Q4HRS PRN Lorazepam 0.5 Mg Tablet 0.5 Mg PO PRN Q4HRS PRN Bisacodyl 5 Mg Tablet.dr 10 Mg PO PRN QHS PRN Diphenhydramine Hcl 25 Mg Tablet 25 Mg PO PRN QHS PRN Temazepam 15 Mg Capsule 15 Mg PO PRN QHS PRN Depakote Sprinkle (Divalproex Sodium) 125 Mg Cap.sprink 250 Mg PO BID Benadryl (Diphenhydramine Hcl) 25 Mg Capsule 25 Mg PO PRN Q8HRS PRN Seroquel (Quetiapine Fumarate) 25 Mg Tablet 25 Mg PO TID Alprazolam 0.5 Mg Tablet 0.5 Mg PO TID Aricept (Donepezil Hcl) 10 Mg Tablet 10 Mg PO QHS Paroxetine Hcl 20 Mg Tablet 20 Mg PO DAILY Lisinopril 40 Mg Tablet 40 Mg PO DAILY Diagnosis: Problems: (1) Dementia with behavioral disturbance (2) Anxiety disorder (3) Dementia in Alzheimer's disease with delusions (4) Dementia in Alzheimer's disease with depression (5) Dementia, vascular, with delusions (6) Dementia, vascular, with depression (7) Impulse control disorder TIFFANIE SCOTT MD Jan 31, 2017 23:43
[2017-02-01 06:13] VITALS: BP 174/85
[2017-02-01] MEDS: ESCITALOPRAM 10 MG TABLET. PO SCH (09:25)
[2017-02-01] MEDS: busPIRone 10 MG TABLET. PO SCH ×3 (09:25→19:55)
[2017-02-01] MEDS: LISINOPRIL 20 MG TABLET PO SCH (09:25)
[2017-02-01] MEDS: DIVALPROEX 125 MG CAP.SPRINK PO SCH ×2 (09:25→19:55)
[2017-02-01] MEDS: risperiDONE 0.25 MG TABLET. PO SCH ×2 (09:25→14:58)
[2017-02-01] MEDS: AMLODIPINE BESYLATE 2.5 MG TABLET PO SCH (09:25)
[2017-02-01 16:16] VITALS: BP 130/85
[2017-02-01] MEDS: DONEPEZIL HCL 10 MG TABLET PO SCH (19:55)
--- NOTE | 2017-02-01 21:41 | PDOC ---
Exam Ab Demential Exam: Ab Note: Please also refer to the separate dictated note~for this date of service dictated separately.~Patient seen individually. Discussed the patient with Nursing staff reviewed the chart.~Reviewed interim history and current functioning. Reviewed vital signs,~Labs/ Radiology~and current medications noted below. Continue current treatment with the changes noted in the dictated addendum note Assessment: Vital Signs: Vital Signs Date Time Temp Pulse Resp B/P Pulse Ox O2 Delivery O2 Flow Rate FiO2 02/01/17 16:16 97.8 65 16 130/85 94 01/29/17 06:26 Room Air I&O Intake and Output 02/01/17 07:00 Intake Total 720 ml Balance 720 ml Intake Oral 720 ml Current Medications: Meds: Current Medications Trimethoprim/ Sulfamethoxazole (Bactrim Ds) 1 tab 1X ONCE PO Last administered on 12/31/16 00:02; Start 12/30/16 at 23:55; Stop 12/30/16 at 23:56 ; Status DC Multi-Ingredient Ointment (Analgesic [place]) 1 jazlyn PRN QID PRN TP MUSCLE PAIN; Start 12/31/16 at 00:00 Al Hydroxide/Mg Hydroxide (Mylanta Plus Xs) 15 ml PRN AFTMEALHC PRN PO DYSPEPSIA; Start 12/31/16 at 00:00 Magnesium Hydroxide (Milk Of Magnesia) 2,400 mg PRN QHS PRN PO CONSTIPATION; Start 12/31/16 at 00:00 Alprazolam (Xanax) 0.5 mg TID PO Last administered on 01/12/17 08:46; Start at 09:00; Stop 01/12/17 at 14:01; Status DC Divalproex Sodium (Depakote Sprinkles) 250 mg BID PO Last administered on 19:55; Start 12/31/16 at 09:00 Donepezil HCl (Aricept) 10 mg QHS PO Last administered on 02/01/17 19:55; Start 12/31/16 at 21:00 Lorazepam (Ativan) 0.5 mg PRN Q4HRS PRN PO ANXIETY / AGITATION Last administered on 12/31/16 05:50; Start 12/31/16 at 00:00; Stop 12/31/16 at 06:19 ; Status DC Paroxetine HCl (Paxil) 20 mg DAILY PO Last administered on 01/03/17 08:27; Start 12/31/16 at 09:00; Stop 01/03/17 at 13:07; Status DC Quetiapine Fumarate (SEROquel) 25 mg TID PO Last administered on 01/13/17 14:11 ; Start 12/31/16 at 09:00; Stop 01/13/17 at 18:06; Status DC Temazepam (Restoril) 15 mg PRN QHS PRN PO INSOMNIA Last administered on 19:29; Start 12/31/16 at 00:00 Olanzapine (Zyprexa Zydis) 2.5 mg PRN Q2HR PRN PO PSYCHOSIS Last administered on 01/23/17 19:34; Start 12/31/16 at 06:30 Hydroxyzine HCl (Atarax) 50 mg PRN TID PRN PO ANXIETY Last administered on 01/27 04:12; Start 12/31/16 at 07:30 Lorazepam (Ativan) 0.5 mg DAILY IM Last administered on 01/04/17 08:41; Start 12/31/16 at 08:30; Stop 01/04/17 at 18:32; Status DC Haloperidol Lactate (Haldol) 5 mg DAILY IM Last administered on 01/04/17 08:40 ; Start 12/31/16 at 08:30; Stop 01/04/17 at 18:32; Status DC Acetaminophen (Tylenol) 650 mg PRN Q4HRS PRN PO PAIN / TEMP Last administered on 01/16/17 06:16; Start 12/31/16 at 09:15 Bisacodyl (Dulcolax Tab) 10 mg PRN QHS PRN PO CONSTIPATION; Start 12/31/16 at 09:15 Diphenhydramine HCl (Benadryl) 25 mg PRN Q8HRS PRN PO RASH; Start 12/31/16 at 09:15 Senna/Docusate Sodium (Senna Plus) 1 tab PRN QHS PRN PO CONSTIPATION Last administered on 01/17/17 19:20; Start 12/31/16 at 09:15 Lisinopril (Prinivil) 40 mg DAILY PO Last administered on 02/01/17 09:25; Start 12/31/16 at 09:30 Vitamin D (Vitamin D3) 50,000 unit WEEKLY PO Last administered on 01/29/17 07: 53; Start 01/08/17 at 09:00; Stop 03/10/17 at 08:59 Escitalopram Oxalate (Lexapro) 10 mg DAILY PO Last administered on 02/01/17 09 :25; Start 01/04/17 at 09:00 Buspirone HCl (Buspar) 5 mg BID PO Last administered on 01/10/17 09:28; Start 01/09/17 at 21:00; Stop 01/10/17 at 18:33; Status DC Buspirone HCl (Buspar) 10 mg BID PO Last administered on 01/12/17 08:44; Start 01/10/17 at 21:00; Stop 01/12/17 at 14:01; Status DC Alprazolam (Xanax) 0.25 mg QID PO Last administered on 01/21/17 16:36; Start 01/12/17 at 17:00; Stop 01/21/17 at 18:51; Status DC Buspirone HCl (Buspar) 10 mg TID PO Last administered on 02/01/17 19:55; Start 01/12/17 at 14:00 Alprazolam (Xanax) 0.25 mg 1X ONCE PO Last administered on 01/12/17 14:47; Start 01/12/17 at 14:30; Stop 01/12/17 at 14:31; Status DC Quetiapine Fumarate (SEROquel) 25 mg DAILY@14 PO Last administered on 01/16/17 14:58; Start 01/14/17 at 14:00; Stop 01/16/17 at 18:25; Status DC Quetiapine Fumarate (SEROquel) 37.5 mg BID@ PO Last administered on 08:42; Start 01/13/17 at 21:00; Stop 01/17/17 at 18:29; Status DC Ondansetron HCl (Zofran Odt) 4 mg PRN Q4HRS PRN PO NAUSEA/VOMITING Last administered on 01/16/17 09:38; Start 01/16/17 at 09:00 Quetiapine Fumarate (SEROquel) 25 mg DAILY@15 PO Last administered on 14:01; Start 01/17/17 at 15:00; Stop 01/17/17 at 18:29; Status DC Lorazepam (Ativan) 0.5 mg DAILY IV ; Start 01/17/17 at 11:00; Stop 01/17/17 at 11:20; Status DC Lorazepam (Ativan) 0.5 mg DAILY IM Last administered on 01/21/17 09:10; Start 01/17/17 at 11:00; Stop 01/21/17 at 18:36; Status DC Risperidone (Risperdal) 0.25 mg [id number] PO Last administered on 02/01/17 14:58; Start 01/18/17 at 09:00 Cefpodoxime Proxetil (Vantin) 200 mg BID PO Last administered on 01/20/17 08: 25; Start 01/18/17 at 12:30; Stop 01/20/17 at 17:34; Status DC Alprazolam (Xanax) 0.25 mg QID PO Last administered on 01/21/17 20:31; Start 01/21/17 at 21:00; Stop 01/21/17 at 22:00; Status DC Alprazolam (Xanax) 0.25 mg [id number] PO Last administered on 01/23/17 19:33; Start 01/22/17 at 09:00; Stop 01/23/17 at 22:01; Status DC Alprazolam (Xanax) 0.25 mg BID PO Last administered on 01/25/17 19:45; Start 01/24/17 at 09:00; Stop 01/25/17 at 22:00; Status DC Alprazolam (Xanax) 0.25 mg DAILY PO Last administered on 01/26/17 08:37; Start 01/26/17 at 09:00; Stop 01/26/17 at 20:01; Status DC Amlodipine Besylate (Norvasc) 2.5 mg DAILY PO Last administered on 02/01/17 09 :25; Start 01/29/17 at 10:15 Active Scripts Active Reported Senna S Tablet (Sennosides/Docusate Sodium) 1 Each Tablet 1 Tab PO PRN QHS PRN Tylenol (Acetaminophen) 325 Mg Tablet 650 Mg PO PRN Q4HRS PRN Lorazepam 0.5 Mg Tablet 0.5 Mg PO PRN Q4HRS PRN Bisacodyl 5 Mg Tablet.dr 10 Mg PO PRN QHS PRN Diphenhydramine Hcl 25 Mg Tablet 25 Mg PO PRN QHS PRN Temazepam 15 Mg Capsule 15 Mg PO PRN QHS PRN Depakote Sprinkle (Divalproex Sodium) 125 Mg Cap.sprink 250 Mg PO BID Benadryl (Diphenhydramine Hcl) 25 Mg Capsule 25 Mg PO PRN Q8HRS PRN Seroquel (Quetiapine Fumarate) 25 Mg Tablet 25 Mg PO TID Alprazolam 0.5 Mg Tablet 0.5 Mg PO TID Aricept (Donepezil Hcl) 10 Mg Tablet 10 Mg PO QHS Paroxetine Hcl 20 Mg Tablet 20 Mg PO DAILY Lisinopril 40 Mg Tablet 40 Mg PO DAILY Diagnosis: Problems: (1) Dementia with behavioral disturbance (2) Anxiety disorder (3) Dementia in Alzheimer's disease with delusions (4) Dementia in Alzheimer's disease with depression (5) Dementia, vascular, with delusions (6) Dementia, vascular, with depression (7) Impulse control disorder TIFFANIE SCOTT MD Feb 01, 2017 21:41
--- NOTE | 2017-02-02 02:25 | PN ---
DATE: 01/31/2017 PSYCHIATRIC PROGRESS NOTE This is a late entry for 01/31/2017, covers the elements not covered in my initial note. SUBJECTIVE: Per nursing report, the patient remains confused, wanders around the unit redirectable, not aggressive, less psychotic. REVIEW OF SYSTEMS: No CV, , pulmonary, eye system symptoms on review. Reliability poor. Gait unsteady with a walker. MENTAL STATUS EXAM: Oriented to herself. Insight, judgment, recent and remote memory, attention, concentration, fund of knowledge poor, consistent with her diagnosis, quite pleasant as I met with her individually. LABORATORY DATA: Reviewed. IMPRESSION: Major neurocognitive disorder, Alzheimer, vascular with depression, delusion, behavioral disturbance. Rest unchanged. PLAN: Continue current psychotropics ____ BuSpar, Risperdal, Depakote, Xanax, Restoril, Benadryl p.r.n., hydroxyzine p.r.n., Lexapro 10 mg a day. TIFFANIE SCOTT MD DR: ALE/amina JOB#: [id number] / [id number]
[2017-02-02] MEDS ORDERED: AMLO2.5T PO (03:17)
[2017-02-02] MEDS ORDERED: CHOL500016 PO (03:27)
[2017-02-02] MEDS ORDERED: ESCI10TA PO (03:31)
[2017-02-02] MEDS ORDERED: HYDR25TA PO (03:33)
[2017-02-02] MEDS ORDERED: MAG30ORA2 PO (03:34)
[2017-02-02] MEDS ORDERED: MAGN2400 PO (03:35)
[2017-02-02] MEDS ORDERED: METH29OI TP (03:37)
[2017-02-02] MEDS ORDERED: OLAN5TAB5 PO (03:37)
[2017-02-02] MEDS ORDERED: ONDA4TAB12 PO (03:39)
[2017-02-02] MEDS ORDERED: BUSP10TA PO (03:40)
[2017-02-02] MEDS ORDERED: RISP0.253 PO (03:41)
[2017-02-02 06:29] VITALS: BP 156/89
[2017-02-02] MEDS: busPIRone 10 MG TABLET. PO SCH (08:38)
[2017-02-02] MEDS: ESCITALOPRAM 10 MG TABLET. PO SCH (08:38)
[2017-02-02] MEDS: DIVALPROEX 125 MG CAP.SPRINK PO SCH (08:38)
[2017-02-02] MEDS: risperiDONE 0.25 MG TABLET. PO SCH (08:38)
[2017-02-02 08:41] VITALS: BP 156/89
[2017-02-02] MEDS: LISINOPRIL 20 MG TABLET PO SCH (08:41)
[2017-02-02] MEDS: AMLODIPINE BESYLATE 2.5 MG TABLET PO SCH (08:41)
--- NOTE | 2017-02-03 04:18 | PN ---
DATE: 02/01/2017 This is a late entry for 02/01/2017 covers elements not covered in my initial note. SUBJECTIVE: Overall per nursing report, the patient has been fairly cooperative, remains confused, but not aggressive. REVIEW OF SYSTEMS: Ambulation impaired with a walker. No CV, , pulmonary, eye system symptoms on review. MENTAL STATUS EXAM: Oriented to herself. Insight, judgment, recent and remote memory, attention, concentration, fund of knowledge poor, consistent with her diagnosis as mentioned in my initial note. PLAN: Continue current psychotropics. Transition to care home for 02/02/2017. MAN Matt SCOTT MD DR: ALE/amina JOB#: [id number] / [id number]
--- NOTE | 2017-02-04 16:25 | DS ---
DATE OF DISCHARGE: 02/02/2017 This is a late entry for date of service of 02/02/2017. REASON FOR ADMISSION: Please refer to the admission history for details. Briefly, the patient is an 86-year-old female, referred to us from [facility] on account of increased confusion within the context of her dementia. The patient was combative with cares, combative with staff and residents, exit seeking, making threatening statements, dangerous, unmanageable at the facility resulting in this referral. SIGNIFICANT FINDINGS AND CLINICAL COURSE: Following admission, the patient was seen daily individually by myself from a psychiatric standpoint and medical followup was with Dr. Garnett/Dr. Kramer. The patient was quite paranoid, confused, agitated, aggressive, disruptive and difficult to redirect. Adjustments were made in her psychotropics and she seemed to respond to a combination of Aricept 10 mg a day, BuSpar 10 t.i.d., Risperdal 0.25 mg twice a day, Depakote 250 b.i.d., Xanax was at 0.25 mg daily, Restoril 15 at bedtime p.r.n., Benadryl p.r.n., Zyprexa p.r.n., hydroxyzine p.r.n. and Lexapro 10 mg a day. The IM Ativan had been discontinued. This had been initiated earlier in her hospitalization due to total noncompliance with psychotropics, which were ineffective orally as well. The Ativan was not used p.r.n. as restraints, but rather as the choice for medication route of administration. Prior to discharge on 02/02/2017, temperature 98.4, pulse 74, respirations 18 and BP 164/80. REVIEW OF SYSTEMS: Ambulation impaired with a walker. No CV, , pulmonary, eye, ENT system symptoms on review. Reliability poor. MENTAL STATUS EXAMINATION: Oriented to herself. Insight, judgment, recent and remote memory, attention, concentration, fund of knowledge poor, consistent with her diagnosis mentioned in my initial note. LABORATORY DATA: Reviewed. FINAL DIAGNOSES: Major neurocognitive disorder, Alzheimer, vascular with depression, delusion, behavioral disturbance; anxiety disorder, unspecified; impulse control disorder, unspecified. Rest diagnoses unchanged from admission. DISCHARGE MEDICATIONS: Please refer to the MRAD. DISCHARGE INSTRUCTIONS: Outpatient psychiatric and medical followup at the alf. Time for discharge day management greater than 30 minutes. MAN Matt SCOTT MD DR: ALE/amina JOB#: [id number] / [id number]
== END 2017-02-02 10:45 | DRG 884 ==
LOC: ER 21:48 → GEROPSY 23:41
PROVIDERS: ADMIT Psychiatry & Neurology Psychiatry; ATTEND Psychiatry & Neurology Psychiatry
DX: F01.51 Vascular dementia, unspecified severity, with behavioral disturbance (principal); F02.81 Dementia in other diseases classified elsewhere, unspecified severity, with behavioral disturbance; N39.0 Urinary tract infection, site not specified; G30.9 Alzheimer's disease, unspecified; F32.9 Major depressive disorder, single episode, unspecified; F41.9 Anxiety disorder, unspecified; F63.9 Impulse disorder, unspecified; I10 Essential (primary) hypertension; M25.50 Pain in unspecified joint
CPT/HCPCS: 36415; 80047; 80053; 80061; 80164; 81001; 82306; 82607; 83036; 83540; 83550; 83735; 84436; 84443; 84480; 84484; 85027; 86592; 86593; 87086; 93005; J1630; J2060; Q0162; 99285-25